=== PATIENT | female | born 1970 | race Caucasian/White ===

== ENCOUNTER → 2018-01-03 10:46 | Outpatient (CLI) | payer MEDICAID, SELFPAY ==
[2018-01-03 12:26] LABS: Creatinine, Serum 1.05 mg/dL (0.55-1.02); EST Glomerular Filtration Rate 59 mL/min (>60); Est Glom Filt Rate - Afr Amer 72 mL/min (>60)
== END ==
PROVIDERS: Family Provider Family Medicine; PCP Family Medicine; Visit Provider Specialist
DX: M25.521 Pain in right elbow (principal)
CPT/HCPCS: 36415; 82565

== ENCOUNTER 2018-02-01 12:00 | Day surgery (SDC) | payer MEDICAID, SELFPAY ==
--- NOTE | 2018-01-27 14:47 | PCM.HP.BLA ---
History and Physical DATE OF SURGERY: 02/01/2018 SCHEDULED PROCEDURE: Left shoulder manipulation under anesthesia with ultrasound guided injection HISTORY OF PRESENT ILLNESS: This is a 47-year-old female who is been having ongoing left shoulder pain since the summer 2016. Patient is left-hand dominant. Patient cannot recall any specific trauma or injury. Patient's chief complaint is limited mobility in the left dominant shoulder as well as pain. She has been through formal physical therapy as well as glenohumeral corticosteroid injection. Injection helped temporarily but the pain and limited mobility continued to progress. Patient states this is significantly affecting her normal activities of daily living as well as exercise. Patient has difficult time lifting her left shoulder in comparison to her right. Patient has a medical history pertinent for type 2 diabetes mellitus, hypertension. After failing conservative measures and discussing all options with Dr. Siegel, the patient would like to proceed with a left shoulder manipulation under anesthesia with ultrasound guided corticosteroid injection. Patient currently denies any chest pain, shortness of breath, fevers chills, or recent infections. REVIEW OF SYSTEMS: ROS: Const: Denies change in appetite, fever,or weight change. CV: Denies chest pain, heart murmur and irregular heartbeat. Resp: Reports cough, but denies pneumonia, SOB, tuberculosis and wheezing. GI: Denies constipation, diarrhea, difficulty swallowing, heartburn, nausea, bloody stools and vomiting. : Genital: reports irregular menstrual periods. Urinary: denies incontinence. Musculo: Reports leg swelling, trouble walking and weakness, but denies limp. Skin: Denies Raynaud's, history of shingles and tattoo. Neuro: Reports numbness/tingling but denies ambulatory dysfunction, dizziness and tremor. Psych: Denies anxiety, insomnia and stress. Oscar/Lymph: Denies anemia, bleeding/bruising tendency and past transfusion. Reviewed, no changes. PAST MEDICAL HISTORY: Advance Care Plan: No Advance Directives Effective Date: 10/22/2017 PMH: Medical Problems: Asthma, Depression, Diabetes, High Blood Pressure, Hypercholesterolemia Accidents: None Surgical Hx: Section - 86, , 93 Tubal Ligation - 1992 Tonsillectomy - Anesthesia Complications: None Assistive Devices: Glasses Reviewed, no changes. 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 Personal Habits: Cigarette Use: Never Smoked Cigarettes.Alcohol: Occasionally.Drug Use: Denies Use.Enjoy Exercising: Exercises 1-3 X/Week. Reviewed, no changes. VITALS: Ht: 67 Wt: 214lb Wt k.070 BMI: 33.5 BP: 144/82 Pulse: 80 Resp: 16 T: 97.6 T: 36.4C ALLERGIES: Erythromycin - Upset Stomach Diogo Inhibitor - Cough Trilipix - Itching Ivpdye Acid Cell Stripper Final MEDICATIONS: Oxycodone HCL 5 mg 1-2 tab by mouth every 6 hours, Meloxicam 15 mg 1 by mouth every day, Pravastatin Sodium 80 mg 1 by mouth every day, Metformin HCL 500 mg tid, Losartan Potassium/Hydrochlorothiazide 100-25 mg 1 by mouth every day, Glipizide ER 2.5 mg 1 daily, Tramadol HCL 50 mg 1-2 by mouth every 6 hours as needed pain, Acyclovir 400 mg 1 by mouth every day, Cetirizine HCL 10 mg 1 daily, Metoprolol 50 mg bid, Levemir 60 Units 1 daily, Humalog 15 Units bid, Vitamin D3 Super Strength 2000 Unit daily, Womens Daily Formula daily, Florence-C 500mg bid, Fish Oil [place]-3 1000 mg bid, Calcium 600 600 mg 1 by mouth DAILY PRE-OP EXAM: General appearance:NORMAL Other: Eyes: Conjunctivae and lids: NORMAL Pupils: ERR Ears, Nose, Mouth, and Throat: NORMAL Other: Inspection of lips, teeth and gums: NORMAL Other: Neck: Examination of neck: no masses noted. Respiratory: Assessment of respiratory effort: NORMAL Other: Ausculation of lungs: clear to ausculation no wheeses, ronchi or rales. Cardiovascular: Ausculation of heart: regular rate and rhythem, positive systolic mummur, no gallops or rubs. Exam of carotid arteries: NORMAL Other: Gastrointestinal: Exam of abdomen: soft, nontender, nondistended bowel sounds present. Lymphatic: Palpation of nodes in neck: NORMAL Other: Palpation of nodes in Axillae: NORMAL Other: Neurological: see below Psychiatric: Orientation to time, place and person: NORMAL Other: Mood and affect: NORMAL Other: PHYSICAL EXAMINATION: Examination of the patient's left shoulder is cool to touch without erythema. Range of motion actively is 90? forward elevation, 20? external rotation, internal rotation to beltline. Passively patient can be taken to 100? of forward elevation. Patient does have scapular dyskinesia. Good strength of the left shoulder. Sensations intact light touch. IMAGING STUDIES: 1. X-rays were obtained at [facility] on October 22, 2017 of the left shoulder which reveals well aligned left shoulder with no acute fractures noted. No significant degenerative changes of the joint. 2. MRI was obtained at [facility] on January 21, 2018 of the left shoulder which does reveal adhesive capsulitis and mild rotator cuff tendinosis without tear. IMPRESSION: 1. Left shoulder pain with adhesive capsulitis 2. Hypertension 3. Type 2 diabetes mellitus 4. Hypercholesterolemia 5. Depression 6. Asthma PLAN: Dr. Siegel did discuss and review with the patient all treatment options including surgical versus nonsurgical. Patient wishes to proceed with above-stated procedure. Potential risks, benefits, and complications of this procedure were discussed in detail including but not limited to , infection, nerve and blood vessel damage, persistent pain, numbness, tingling, paresthesias, blood clot, pulmonary embolism, and requirement for further surgery. The patient expressed full understanding has no further questions for the doctor. Patient does agree to proceed with the above-stated procedure and has signed the surgery consent form. We will begin immediate formal physical therapy daily following manipulation under anesthesia. Patient was encouraged to work on pendulum exercises and passive range of motion postoperatively. ___ I have re-examined the patient. There are no clinical changes since date of exam. ___ See progress notes for changes. ___ Dictated on admission Date: Time: Signature:
--- NOTE | 2018-01-27 14:57 | HP.PCM_ITS ---
History and Physical DATE OF SURGERY: 02/01/2018 SCHEDULED PROCEDURE: Left shoulder manipulation under anesthesia with ultrasound guided injection HISTORY OF PRESENT ILLNESS: This is a 47-year-old female who is been having ongoing left shoulder pain since the summer 2016. Patient is left-hand dominant. Patient cannot recall any specific trauma or injury. Patient's chief complaint is limited mobility in the left dominant shoulder as well as pain. She has been through formal physical therapy as well as glenohumeral corticosteroid injection. Injection helped temporarily but the pain and limited mobility continued to progress. Patient states this is significantly affecting her normal activities of daily living as well as exercise. Patient has difficult time lifting her left shoulder in comparison to her right. Patient has a medical history pertinent for type 2 diabetes mellitus, hypertension. After failing conservative measures and discussing all options with Dr. Siegel, the patient would like to proceed with a left shoulder manipulation under anesthesia with ultrasound guided corticosteroid injection. Patient currently denies any chest pain, shortness of breath, fevers chills, or recent infections. REVIEW OF SYSTEMS: ROS: Const: Denies change in appetite, fever,or weight change. CV: Denies chest pain, heart murmur and irregular heartbeat. Resp: Reports cough, but denies pneumonia, SOB, tuberculosis and wheezing. GI: Denies constipation, diarrhea, difficulty swallowing, heartburn, nausea, bloody stools and vomiting. : Genital: reports irregular menstrual periods. Urinary: denies incontinence. Musculo: Reports leg swelling, trouble walking and weakness, but denies limp. Skin: Denies Raynaud's, history of shingles and tattoo. Neuro: Reports numbness/tingling but denies ambulatory dysfunction, dizziness and tremor. Psych: Denies anxiety, insomnia and stress. Oscar/Lymph: Denies anemia, bleeding/bruising tendency and past transfusion. Reviewed, no changes. PAST MEDICAL HISTORY: Advance Care Plan: No Advance Directives Effective Date: 10/22/2017 PMH: Medical Problems: Asthma, Depression, Diabetes, High Blood Pressure, Hypercholesterolemia Accidents: None Surgical Hx: Section - 86, , 93 Tubal Ligation - 1992 Tonsillectomy - Anesthesia Complications: None Assistive Devices: Glasses Reviewed, no changes. 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 Personal Habits: Cigarette Use: Never Smoked Cigarettes.Alcohol: Occasionally.Drug Use: Denies Use.Enjoy Exercising: Exercises 1-3 X/Week. Reviewed, no changes. VITALS: Ht: 67 Wt: 214lb Wt k.070 BMI: 33.5 BP: 144/82 Pulse: 80 Resp: 16 T: 97.6 T: 36.4C ALLERGIES: Erythromycin - Upset Stomach Diogo Inhibitor - Cough Trilipix - Itching Ivpdye Acid Jointer Machine MEDICATIONS: Oxycodone HCL 5 mg 1-2 tab by mouth every 6 hours, Meloxicam 15 mg 1 by mouth every day, Pravastatin Sodium 80 mg 1 by mouth every day, Metformin HCL 500 mg tid, Losartan Potassium/Hydrochlorothiazide 100-25 mg 1 by mouth every day, Glipizide ER 2.5 mg 1 daily, Tramadol HCL 50 mg 1-2 by mouth every 6 hours as needed pain, Acyclovir 400 mg 1 by mouth every day, Cetirizine HCL 10 mg 1 daily , Metoprolol 50 mg bid, Levemir 60 Units 1 daily, Humalog 15 Units bid, Vitamin D3 Super Strength 2000 Unit daily, Womens Daily Formula daily, Florence-C 500mg bid, Fish Oil [place]-3 1000 mg bid, Calcium 600 600 mg 1 by mouth DAILY PRE-OP EXAM: General appearance:NORMAL Other: Eyes: Conjunctivae and lids: NORMAL Pupils: ERR Ears, Nose, Mouth, and Throat: NORMAL Other: Inspection of lips, teeth and gums: NORMAL Other: Neck: Examination of neck: no masses noted. Respiratory: Assessment of respiratory effort: NORMAL Other: Ausculation of lungs: clear to ausculation no wheeses, ronchi or rales. Cardiovascular: Ausculation of heart: regular rate and rhythem, positive systolic mummur, no gallops or rubs. Exam of carotid arteries: NORMAL Other: Gastrointestinal: Exam of abdomen: soft, nontender, nondistended bowel sounds present. Lymphatic: Palpation of nodes in neck: NORMAL Other: Palpation of nodes in Axillae: NORMAL Other: Neurological: see below Psychiatric: Orientation to time, place and person: NORMAL Other: Mood and affect: NORMAL Other: PHYSICAL EXAMINATION: Examination of the patient's left shoulder is cool to touch without erythema. Range of motion actively is 90? forward elevation, 20? external rotation, internal rotation to beltline. Passively patient can be taken to 100? of forward elevation. Patient does have scapular dyskinesia. Good strength of the left shoulder. Sensations intact light touch. IMAGING STUDIES: 1. X-rays were obtained at [facility] on October 22, 2017 of the left shoulder which reveals well aligned left shoulder with no acute fractures noted. No significant degenerative changes of the joint. 2. MRI was obtained at [facility] on January of the left shoulder which does reveal adhesive capsulitis and mild rotator cuff tendinosis without tear. IMPRESSION: 1. Left shoulder pain with adhesive capsulitis 2. Hypertension 3. Type 2 diabetes mellitus 4. Hypercholesterolemia 5. Depression 6. Asthma PLAN: Dr. Siegel did discuss and review with the patient all treatment options including surgical versus nonsurgical. Patient wishes to proceed with above- stated procedure. Potential risks, benefits, and complications of this procedure were discussed in detail including but not limited to , infection , nerve and blood vessel damage, persistent pain, numbness, tingling, paresthesias, blood clot, pulmonary embolism, and requirement for further surgery. The patient expressed full understanding has no further questions for the doctor. Patient does agree to proceed with the above-stated procedure and has signed the surgery consent form. We will begin immediate formal physical therapy daily following manipulation under anesthesia. Patient was encouraged to work on pendulum exercises and passive range of motion postoperatively. ___ I have re-examined the patient. There are no clinical changes since date of exam. ___ See progress notes for changes. ___ Dictated on admission Date: Time: Signature:
[2018-02-01] VITALS (7 sets, daily range): BP systolic 153–184; BP diastolic 83–97; PULSE 75–94; RESP 16–18; TEMP 36.3–36.4; O2SAT 93–99; BMI 33.2
[2018-02-01 13:20] LABS: Bedside Glucose 184 mg/dL (70-110)
[2018-02-01] MEDS: Triamcinolone Acetonide 40 MG/ML Vial (15:57)
--- NOTE | 2018-02-01 16:19 | PCM.OPRPT ---
Report of Operation Date of Procedure: 02/01/18 Pre-Operative Diagnosis: Left shoulder adhesive capsulitis Post-Operative Diagnosis: Left shoulder adhesive capsulitis Surgery/Procedure Performed:: Manipulation under anesthesia left shoulder. Ultrasound-guided injection left shoulder glenohumeral joint Description of Surgical Findings:: Good backflow from needle. Preoperative range of motion 105? forward elevation postoperative range of motion 150? forward elevation metal stamper: None Type of Anesthesia:: MAC Anesthesiologist: Mateo Sanches Special Medications: 2 mL Kenalog, 10 mL 1% lidocaine Estimated Blood Loss (mL): 0 Fluids Replaced: Crystalloid Description of Procedure: 47-year-old female who underwent physical therapy and corticosteroid injection for capsulitis of the glenohumeral joint. She failed these conservative measures and at this time we discussed manipulation under anesthesia and repeat corticosteroid injection under ultrasound guidance. Risks and benefits of procedure were discussed the patient including but not limited to fractures, repeat stiffness, infection and general risk of anesthesia including loss of life. Patient demonstrated understanding was able to sign informed consent. Procedure: On the date of the procedure patient's left upper extremity was marked in the preoperative area. Patient was taken back to the operating room where there transferred to the table in supine position. Anesthesia seemed controlled C-spine airway control throughout the remainder the procedure. After placement of LMA and appropriate sedation the left upper extremity was examined showing forward elevation to 105?. After gentle manipulation we obtain 150? forward elevation. Due to fracture risks we did not attempt significant internal rotation due to torsional risk. At this time patient was placed up into the beachchair position the posterior portal was palpated 2 cm distal and 2 cm medial to the posterior lateral edge of the acromion. Ultrasound was used to identify the joint. Appropriate area was prepped with alcohol for sterilization. needle was advanced. 10 cc of lidocaine were placed in the joint good backflow was obtained. After good backflow was obtained verifying entry into the joint as well as visualized joint fluid 2 cc of Kenalog was placed in the joint. Band-Aid was placed after needle was then removed the patient was awakened by anesthesia and transferred to the [facility]. Patient was then transferred to the PACU for recovery in stable condition. Postoperative plan: Patient will begin intensive physical therapy starting tomorrow and follow-up in 1 weeks. Grafts/Implants Used: none - Complications none - Admit VTE Documentation VTE Present on Admission: No VTE Mechan Device Prophylaxis: SCD's VTE Pharm Prophylaxis ordered?: No Reason prophylaxis not ordered:: Treatment Not Indicated
--- NOTE | 2018-02-01 16:24 | OP.PCM_ITS ---
Report of Operation Date of Procedure: 02/01/18 Pre-Operative Diagnosis: Left shoulder adhesive capsulitis Post-Operative Diagnosis: Left shoulder adhesive capsulitis Surgery/Procedure Performed:: Manipulation under anesthesia left shoulder. Ultrasound-guided injection left shoulder glenohumeral joint Description of Surgical Findings:: Good backflow from needle. Preoperative range of motion 105? forward elevation postoperative range of motion 150? forward elevation piece dyer: None Type of Anesthesia:: MAC Anesthesiologist: Mateo Sanches Special Medications: 2 mL Kenalog, 10 mL 1% lidocaine Estimated Blood Loss (mL): 0 Fluids Replaced: Crystalloid Description of Procedure: 47-year-old female who underwent physical therapy and corticosteroid injection for capsulitis of the glenohumeral joint. She failed these conservative measures and at this time we discussed manipulation under anesthesia and repeat corticosteroid injection under ultrasound guidance. Risks and benefits of procedure were discussed the patient including but not limited to fractures, repeat stiffness, infection and general risk of anesthesia including loss of life. Patient demonstrated understanding was able to sign informed consent. Procedure: On the date of the procedure patient's left upper extremity was marked in the preoperative area. Patient was taken back to the operating room where there transferred to the table in supine position. Anesthesia seemed controlled C- spine airway control throughout the remainder the procedure. After placement of LMA and appropriate sedation the left upper extremity was examined showing forward elevation to 105?. After gentle manipulation we obtain 150? forward elevation. Due to fracture risks we did not attempt significant internal rotation due to torsional risk. At this time patient was placed up into the beachchair position the posterior portal was palpated 2 cm distal and 2 cm medial to the posterior lateral edge of the acromion. Ultrasound was used to identify the joint. Appropriate area was prepped with alcohol for sterilization. needle was advanced. 10 cc of lidocaine were placed in the joint good backflow was obtained. After good backflow was obtained verifying entry into the joint as well as visualized joint fluid 2 cc of Kenalog was placed in the joint. Band-Aid was placed after needle was then removed the patient was awakened by anesthesia and transferred to the [facility]. Patient was then transferred to the PACU for recovery in stable condition. Postoperative plan: Patient will begin intensive physical therapy starting tomorrow and follow-up in 1 weeks. Grafts/Implants Used: none - Complications none - Admit VTE Documentation VTE Present on Admission: No VTE Mechan Device Prophylaxis: SCD's VTE Pharm Prophylaxis ordered?: No Reason prophylaxis not ordered:: Treatment Not Indicated
[2018-02-01 16:26] LABS: Bedside Glucose 131 mg/dL (70-110)
[2018-02-01] MEDS: Ketorolac 30 MG/ML Syringe IV (16:32)
== END 2018-02-01 17:30 | disposition home or self-care (01) ==
LOC: SDC 12:01 → ACINP 12:05
PROVIDERS: Family Provider Family Medicine; PCP Family Medicine; Visit Provider Specialist
PROC: (CPT 23700; principal; 2018-02-01 14:25)
DX: M75.02 Adhesive capsulitis of left shoulder (principal); I10 Essential (primary) hypertension; E78.00 Pure hypercholesterolemia, unspecified; E11.9 Type 2 diabetes mellitus without complications; Z79.4 Long term (current) use of insulin; Z79.84 Long term (current) use of oral hypoglycemic drugs; J45.909 Unspecified asthma, uncomplicated; F32.9 Major depressive disorder, single episode, unspecified; F17.210 Nicotine dependence, cigarettes, uncomplicated; Z79.899 Other long term (current) drug therapy
CPT/HCPCS: 20611; 23700; 82962; J3010; J7120; J2405

== ENCOUNTER → 2018-03-21 08:13 | Outpatient (CLI) | payer MEDICAID, SELFPAY ==
--- NOTE | 2018-03-21 08:15 | BI_ITS ---
MAMMOGRAPHY - BILATERAL SCREENING 3-D SUPA SYNTHESIS REASON FOR EXAM: Female, 47 years old. Bilateral Screening 3-D tomosynthesis PERTINENT HISTORY: No significant family history. TECHNIQUE: 2-D mammograms and 3-D Supa synthesis of the breast (s) were performed. CAD was performed. COMPARISON: None. FINDINGS: The breast composition is heterogeneously dense that can obscure small breast masses. Scattered benign calcifications are seen. No dense spiculated masses or suspicious microcalcifications are identified. No architectural distortion is identified. There is no skin thickening or retraction. There has been no significant change since the prior study. BI/SCREENING MAMM (CAD), BILAT IMPRESSION: No mammographic signs of malignancy. Routine yearly mammograms recommended. ASSESSMENT CATEGORY: BIRADS Category 2: Benign. A letter regarding these results will be sent to the patient by the facility within 30 days. FOLLOW UP RECOMMENDATION: Yearly follow up mammogram recommended. (A) Approximately 10% of breast cancers are not detected by mammography. A normal mammogram should not delay biopsy of a clinically suspicious abnormality. Electronically Signed: Mt Burton MD at 11:10 EDT , Service support ,
== END ==
PROVIDERS: Family Provider Family Medicine; PCP Family Medicine; Visit Provider Family Medicine
DX: Z12.31 Encounter for screening mammogram for malignant neoplasm of breast (principal)
CPT/HCPCS: 77063; 77067

== ENCOUNTER → 2018-03-23 10:50 | Outpatient (CLI) | payer MEDICAID, SELFPAY ==
[2018-03-23 12:32] LABS: Hemoglobin A1c 7.9 % (4.2-6.3)
[2018-03-23 12:49] LABS: ALB/GLOB Ratio 1.2 RATIO (0.9-2.4); AST(SGOT) 17 U/L (15-37); Alanine Aminotransfer ALT/SGPT 27 U/L (13-56); Albumin, Serum 3.8 g/dL (3.2-5.0); Alkaline Phosphatase 82 U/L (45-117); Anion Gap 8 (5-15); BUN 25 mg/dL (7-18); BUN/Creat Ratio 24.3 RATIO (10-20); Calcium,Total 9.7 mg/dL (8.5-10.1); Chloride 105 mmol/L (98-107); Creatinine, Serum 1.03 mg/dL (0.55-1.02); EST Glomerular Filtration Rate 61 mL/min (>60); Est Glom Filt Rate - Afr Amer 73 mL/min (>60); Globulin 3.2 g/dL (2.2-4.2); Glucose 105 mg/dL (74-106); Potassium 4.1 mmol/L (3.5-5.1); Sodium Level 143 mmol/L (136-145)
== END ==
PROVIDERS: Family Provider Family Medicine; PCP Family Medicine; Visit Provider Family Medicine
DX: E11.9 Type 2 diabetes mellitus without complications (principal)
CPT/HCPCS: 36415; 80053; 83036

== ENCOUNTER → 2018-07-07 11:50 | Outpatient (CLI) | payer MEDICAID, SELFPAY ==
[2018-07-07 13:19] LABS: AST(SGOT) 17 U/L (15-37); Alanine Aminotransfer ALT/SGPT 26 U/L (13-56); Albumin, Serum 3.5 g/dL (3.2-5.0); Alkaline Phosphatase 83 U/L (45-117); Anion Gap 7 (5-15); BUN 16 mg/dL (7-18); BUN/Creat Ratio 14.8 RATIO (10-20); Chloride 104 mmol/L (98-107); Creatinine, Serum 1.08 mg/dL (0.55-1.02); EST Glomerular Filtration Rate 57 mL/min (>60); Est Glom Filt Rate - Afr Amer 69 mL/min (>60); Globulin 3.4 g/dL (2.2-4.2); Glucose 220 mg/dL (74-106); Hemoglobin A1c 6.9 % (4.2-6.3); Potassium 3.9 mmol/L (3.5-5.1); Protein, Total 6.9 g/dL (6.4-8.2); Sodium Level 139 mmol/L (136-145)
== END ==
PROVIDERS: Family Provider Family Medicine; PCP Family Medicine; Visit Provider Family Medicine
DX: E11.9 Type 2 diabetes mellitus without complications (principal); I10 Essential (primary) hypertension
CPT/HCPCS: 36415; 80053; 83036

== ENCOUNTER 2018-09-13 08:00 | Outpatient (RCR) | payer MEDICAID, SELFPAY ==
--- NOTE | 2018-08-16 08:19 | HP.PTEVAL_ITS ---
Patient's Visit Information YOCASTA CONTRERAS is a 48 year old F referred to Physical Therapy by DINA Rushing with a diagnosis of R lateral epicondylitis. Date of Evaluation: 08/16/18 Physical Therapist: John Alberts - Visit Plan Frequency: 2x /Week Duration: 6 Weeks Plan: Start with eccentric laoding, deep friction to extensor group, US to extensor group and extensor group stretching. Instruct patient on body mechanics and ergonomics. - Subjective Subjective: Pt reports to physical therapy with R lateral epicondylitis. pt has attempted to manage lateral elbow pain for ~3 years. pt has recieved injections which initailly provided relief but the efficacy of the injections has decreased over the years and the frequency of injections has increased. pt reports that pain is greatest at the end of the day and can radiate either up the arm starting at the elbow or down the arm and into hands. pain at night consistently wakes patient up while sleeping. pt reports being pain free in the morning but pain can increases to as high as 9/10 at the end of the day. pt reports 0/10 at this time. pt reports difficulty with daily activities associated with wrist extension (talking on the phone, working on the computer, using push mower, crocheting). pt also reports numbness in the right UE which is localized mostly to the tips of the fingers but can extend through the entire hand. pt reports occacional numbness in left hand as well. pt has history of diabetes. pt has recently rejoined the gym where they attened 1-2 times a week with little to no adverse reactions. pt enjoys crocheting and reports needed to complete several before alisha. pt hopes to be able to continue crocheting and other daily activities without pain. - Pain Right Elbow Pain Intensity (Out of 10): 0 Pain Intensity Range: 0, 9 - Objective PALPATION: Pt. has increased tenderness througout R lateral extensor group and lateral epicondyle. No medial epicondyle pain. POSTURE: forward head and rounded shoulders, mild guarding of right arm. attemps to keep right arm in a relaxed postion. NEURO: equal bilateral sensation UE. ROM: R UE: WFL; Cervical: WFL- no increase insymptoms. no pain with UE motion; no incerase in pain or numbness with cervical motion. MMT: R UE: elbow- 5/5; wrist- 5/5; fingers- 5/5. elbow pain with resisted wrist extension, operation specialist strength- R 38#. L operation specialist 54#. SPECIAL TESTING: + finklestien, + cozen's, + hawkins. - Goals Goal 1:: Pt reports a 2-3/10 pain level at the end of the day. Goal Time Frame: 4-6 Weeks Goal 2:: Pt reports 0/10 with daily activity (working on computer, mowing, talking on phone, crocheting) Goal Time Frame: 4-6 Weeks Goal 3:: Pt. to sleep throughout the night without increase in symptoms allowing for increased quality of life. Goal Time Frame: 4-6 Weeks Goal 4:: Pt. to have increased operation specialist strength of R hand to 40#+ without increase in symptoms. - Rehabilitation Potential Physical Therapy Diagnosis: pt presents with symtpons associated with R lateral epicondylitis. symptoms include pain originating from the right lateral epicondyle. pain increases with activity, especially wrist extension activities. pt would benefit from physical therapy to promot a decrease in pain and abilty to return to normal daily activities. Rehabilitation Potential: Good - Anticipated Interventions Patient/Client Instruction: Educate patient on: Condition, Plan of Care, Risk Factors, Benefits of Fitness Program For the Purpose of:: To decrease pain, To improve muscle performance and motor function, To improve ability to perform ADL's, To increase tolerance to act ivity/condition/position, To improve performance and independence with ADL's, To improve ability of physical actions for home/community/work/leisure, To improve decision making, To facilitate caregiver knowledge, To improve self management, To prevent re-injury, To improve ability to perform tasks related to life management, To improve tolerance to ADL's Therapeutic Exercise to Include: Strength training, Endurance training, Postural training, Flexibilty training For the Purpose of:: To decrease pain, To improve muscle performance and motor function, To improve ability to perform ADL's, To increase tolerance to activity/condition/position, To improve ability of physical actions for home/community/work/leisure, To improve health of tissue, To decrease soft tissue restriction Manual Therapy Techniques to Include: Massage, Mobilization, Functional dry needling, Soft tissue mobilization For the Purpose of:: To decrease pain, To improve muscle performance and motor function, To improve ability to perform ADL's, To increase tolerance to activity/condition/position, To improve performance and independence with ADL's, To improve ability of physical actions for home/community/work/leisure Cryotherapy (ice pack, ice massage): Yes Thermo therapy (hot pack): Yes Ultrasound (thermal/non thermal): Yes For the Purpose of:: To decrease pain, To decrease swelling/inflammation, To improve muscle performance and motor function, To improve ability to perform ADL's, To increase tolerance to activity/condition/position, To improve ability of physical actions for home/community/work/leisure Thank you for the opportunity to evaluate your patient. For Medicare and Medicare HMO plans, please review the plan of care and approve it. It will need to be FAXED BACK to us at [phone] for Medicare purposes. Please let me know if there are questions or concerns regarding this plan of care. Physician Signature: Date:
--- NOTE | 2018-09-13 09:12 | HP.PTDCSUM ---
HP - PT D/C Summary It has been my pleasure to treat YOCASTA CONTRERAS under orders from DINA Rushing, for the diagnosis of R lateral epicondylitis for a total of 8 visit(s). Discharge Date: 09/13/18 Please see the following information for a summary of their discharge status. - Subjective Subjective: Pt. reports I have been doing pretty good over the past few days, it doesn't really hurt. Pt. reports being HEP compliant. Pt. reports being - Pain Right Elbow Pain Intensity (Out of 10): 0 - Overall Improvement % Improvement: 60 - Objective Objective/Function: Pt. had full strength without increase in symptoms. Pt. reports not having pain over the last 4 days or so, but really has not done the activities that usually bother her. Pt. has minimal pain with palpation this date. No N/T. Pt. reprots being able to complete hobbies without issues. pt. is scheduled to have a nerve conduction test in Oct. Pt. is independent with her current HEP. Pt. reports being pleased. Pt. has no pain currently. - Goals Goal 1:: Pt reports a 2-3/10 pain level at the end of the day. Goal Progress: Goal Met Goal 2:: Pt reports 0/10 with daily activity (working on computer, mowing, talking on phone, crocheting) Goal Progress: Progressing Goal 3:: Pt. to sleep throughout the night without increase in symptoms allowing for increased quality of life. Goal Progress: Goal Met Goal 4:: Pt. 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 Goal Progress: Goal Met - Plan Plan: Pt. to be DC to HEP at this point in time. Pt. to have nerve conduction test to determine source of symptoms and rule out carpal tunnel. Pt. had positive results with eccentric and deep friction activies. - D/C Information Discharge Comments: Pt. progressed well with PT. PT. focused on stretching, eccentric exercises, US and deep friction. We added graston techniques as well. Pt. had good progress, but did have some symptoms with heavier activities. Pt. did report no pain over the last few days. Pt. will be DC to HEP at this point in time. She is to continue with HEP, but if symptoms still occur further imaging and assesment would be warranted. If there are questions or concerns regarding this patient's physical therapy, please feel free to call me at [phone]. Thank you for the referral of this patient. Sincerely, John Alberts
== END 2018-09-13 10:27 | disposition home or self-care (01) ==
LOC: PT 08:00
PROVIDERS: Family Provider Family Medicine; PCP Family Medicine; Visit Provider Physician Assistant
DX: M77.11 Lateral epicondylitis, right elbow (principal)
CPT/HCPCS: 97035; 97110; 97140; 97162

== ENCOUNTER → 2018-09-27 09:30 | Outpatient (CLI) | payer MEDICAID, SELFPAY ==
[2018-09-27 12:46] LABS: Hemoglobin A1c 6.9 % (4.2-6.3)
== END ==
PROVIDERS: Family Provider Family Medicine; PCP Family Medicine; Referring Provider Family Medicine; Visit Provider Family Medicine
DX: E11.9 Type 2 diabetes mellitus without complications (principal)
CPT/HCPCS: 36415; 83036

== ENCOUNTER → 2019-09-04 11:05 | Outpatient (CLI) | payer MEDICAID, SELFPAY ==
[2019-09-04 11:01] VITALS: BMI 26.7
--- NOTE | 2019-09-04 11:07 | RAD_ITS ---
STUDY: X-RAY - CERVICAL SPINE REASON FOR EXAM: Female, 49 years old. Right arm pain TECHNIQUE: 5 view(s) of the cervical spine were obtained. COMPARISON: None FINDINGS: Normal anterior atlantoaxial articulation. Normal odontoid process. Normal cervical lordosis. Normal vertebral bodies and endplates. Normal disc space heights. Normal visualized intervertebral neuroforamina. Carotid calcifications. RAD/Cerv Spine 4 or 5 Views IMPRESSION: No significant osseous abnormality is evident. Electronically Signed: José Cortes MD at 17:09 EDT Tel , Service support ,
== END ==
PROVIDERS: Family Provider Family Medicine; PCP Family Medicine; Referring Provider Physician Assistant; Visit Provider Physician Assistant
DX: M79.601 Pain in right arm (principal)
CPT/HCPCS: 72050

== ENCOUNTER → 2019-09-15 15:45 | Outpatient (CLI) | payer MEDICAID, SELFPAY ==
[2019-09-15 14:07] VITALS: BMI 26.4
[2019-09-15 16:16] LABS: Mucous, Urine 0 SEEN /hpf (<or=2+); Squamous Epithelial Cells - UA 0 SEEN /hpf (5-10)
[2019-09-15 16:27] LABS: Color, Urine Straw (Yellow); Glucose, Dipstick Normal (Normal); Ketone-Dipstick Negative (Negative); Leukocyte Esterase-Dipstick 25 /ul (Negative); Nitrite-Dipstick Negative (Negative); Occult Blood-Urine 150 /ul (Negative); Protein-Dipstick Negative (Negative); Urine Bilirubin Dipstick Negative (Negative); Urine Clarity Sl. Cloudy (Clear); Urine Urobilinogen Normal (Normal); Urine pH 6.5 (5.0 - 8.0)
[2019-09-15 16:34] LABS: Bacteria RARE /hpf (None Seen); Red Blood Cells-Urine 0-5 SEEN /hpf (0-5); White Blood Cells 0-5 SEEN /hpf (0-5)
== END ==
PROVIDERS: Family Provider Family Medicine; PCP Family Medicine; Referring Provider Internal Medicine; Visit Provider Internal Medicine
DX: R31.9 Hematuria, unspecified (principal)
CPT/HCPCS: 81001; 87077; 87086; 87088; 87186

== ENCOUNTER → 2019-09-22 11:34 | Outpatient (CLI) | payer MEDICAID, SELFPAY ==
[2019-09-15 14:07] VITALS: BMI 26.4
[2019-09-22 11:37] LABS: Red Blood Cells-Urine 0 SEEN /hpf (0-5)
[2019-09-22 12:41] LABS: Color, Urine Yellow (Yellow); Glucose, Dipstick Normal (Normal); Ketone-Dipstick 5 mg/dl (Negative); Leukocyte Esterase-Dipstick 25 /ul (Negative); Nitrite-Dipstick Negative (Negative); Occult Blood-Urine Negative /ul (Negative); Protein-Dipstick 30 mg/dl (Negative); Specific Gravity, Urine 1.015 (1.002-1.030); Urine Bilirubin Dipstick Negative (Negative); Urine Clarity Sl. Cloudy (Clear); Urine Urobilinogen 1 mg/dl (Normal)
[2019-09-22 12:52] LABS: Bacteria 2+ /hpf (None Seen); Mucous, Urine 2+ /hpf (<or=2+); Squamous Epithelial Cells - UA 0-5 SEEN /hpf (5-10); White Blood Cells 0-5 SEEN /hpf (0-5)
== END ==
PROVIDERS: Family Provider Family Medicine; PCP Family Medicine; Visit Provider Internal Medicine
DX: R31.9 Hematuria, unspecified (principal)
CPT/HCPCS: 81001

== ENCOUNTER 2019-10-18 12:33 | Day surgery (SDC) | payer MEDICAID, SELFPAY ==
[2019-10-05 08:52] VITALS: BMI 26.4
--- NOTE | 2019-10-05 13:57 | HP_ITS ---
I have re-examined the patient. There are no clinical changes since date of exam. Intake Vital Signs 10/05/19 Body Mass Index (BMI) 26.4 Intake Visit Reasons: right arm Chief Complaint: UTI or Kidney stone Allergies choline fenofibrate [From Trilipix] Allergy (Severe, Verified 09/15/19 14:04) Itching Gfxgjwg-Qxy-Ulo Reductase Inhibitor Allergy (Unknown, Verified 09/15/19 14:04) Itching fenofibrate Allergy (Verified 09/15/19 14:04) Itching Iodinated Contrast Media [Iodinated Contrast- Oral and IV Dye] Allergy (Verified 09/15/19 14:04) Itching omeprazole [From Prilosec] Allergy (Verified 09/15/19 14:04) Itching ranitidine Allergy (Verified 09/15/19 14:04) Itching ULISES Inhibitors Adverse Reaction (Verified 09/15/19 14:04) Other erythromycin base Adverse Reaction (Verified 09/15/19 14:04) Upset Stomach Medications Ascorbic Acid [Vitamin C] 500 mg PO DAILY 01/28/18 [History Confirmed 10/05/19] Calcium Carbonate [Calcium] 600 mg PO DAILY 01/28/18 [History Confirmed 10/05/19] Cholecalciferol (Vitamin D3) [Vitamin D3] 2,000 unit PO DAILY 01/28/18 [History Confirmed 10/05/19] Multivit with Calcium,Iron,Min [Multiple Vitamins For Women] 1 ea PO DAILY 01/28/18 [History Confirmed 10/05/19] [place]-3 Fatty Acids/Fish Oil [Fish Oil 1,000 mg Capsule] 1 ea PO BID 01/28/18 [History Confirmed 10/05/19] pen needle, diabetic 32 gauge x 1/4 See Dose Instructions .ROUTE .MEDSUPPLY #50 ea 03/23/18 [Rx Confirmed 10/05/19] vitamin B complex tablet 1 tab PO QDAY 03/23/18 [History Confirmed 10/05/19] fluconazole 100 mg tablet 100 mg PO DAILY PRN tab 02/02/19 [History Confirmed 10/05/19] budesonide-formoterol HFA 160 mcg-4.5 mcg/actuation aerosol inhaler 2 puff INHALATION Q12H #30.6 g 04/21/19 [Rx Confirmed 10/05/19] albuterol sulfate HFA 90 mcg/actuation aerosol inhaler 1 - 2 puff INHALATION Q6H PRN #8.5 g 05/18/19 [Rx Confirmed 10/05/19] pravastatin 80 mg tablet See Rx Instructions .ROUTE .COMPLEX #30 tablet 06/05/19 [Rx Confirmed 10/05/19] metformin ER 500 mg 24 hr tablet,extended release See Rx Instructions PO .COMPLEX tab 06/07/19 [History Confirmed 10/05/19] cetirizine 10 mg capsule 10 mg PO DAILY #90 cap 07/25/19 [Rx Confirmed 10/05/19] atenolol 50 mg tablet See Rx Instructions .ROUTE .COMPLEX #180 tablet 08/02/19 [Rx Confirmed 10/05/19] flash glucose sensor kit See Rx Instructions .ROUTE .MEDSUPPLY #2 ea 08/02/19 [Rx Confirmed 10/05/19] acyclovir 400 mg tablet 400 mg PO BID #60 tab 08/28/19 [Rx Confirmed 10/05/19] meloxicam 15 mg tablet See Rx Instructions .ROUTE .COMPLEX #90 tablet 08/28/19 [Rx Confirmed 10/05/19] ciprofloxacin 500 mg tablet 500 mg PO BID #10 tab 09/15/19 [Rx Confirmed 10/05/19] dulaglutide 1.5 mg/0.5 mL subcutaneous pen injector 1.5 mg SC QWEEK 09/15/19 [History Confirmed 10/05/19] amlodipine 5 mg tablet 5 mg PO DAILY #90 tab 09/19/19 [Rx Confirmed 10/05/19] valsartan 160 mg-hydrochlorothiazide 12.5 mg tablet 1 tab PO DAILY #90 tab 09/19/19 [Rx Confirmed 10/05/19] [facility] Medical History (Updated 08/02/19 @ 11:48 by Fortunato Avery DO) Skin cancer (Chronic) Asthma (Chronic) High cholesterol (Chronic) Hypertension (Chronic) Diabetes (Chronic) Limb weakness (Acute) Shoulder pain (Acute) neck/back pain (Acute) Surgical History (Updated 03/23/18 @ 09:56 by Alba Gooden) History of section (Acute) History of shoulder surgery (Acute) History of tonsillectomy (Acute) History of tubal ligation (Acute) Family History (Updated 03/23/18 @ 09:57 by Alba Gooden) Mother Hypertension Diabetes Father Hypertension Diabetes COPD (chronic obstructive pulmonary disease) Brother Hypertension Brother Hypertension Social History (Updated 10/05/19 @ 09:31 by Setffi Bellamy DO) Smoking Status: Current every day smoker alcohol intake: current alcohol intake frequency: holidays/special occasions only substance use type: does not use what type of physical activity do you participate in: other details: [employer] frequency: 1-2 times per week HPI right arm: Surgical H&P: Yes Details: Parts of this documentation were recorded by a scribe, this documentation accurately reflects the service provided and the decisions made by me, Steffi Bellamy DO 10/05/19 0837. YOCASTA CONTRERAS is a 49 year old F here today for right arm pain, numbness and tingling. Patient had a right carpal tunnel injection last month which she states has been effective. Patient has had an MRI of her right elbow showing tendinopathy at lateral elbow c/w lateral epicondylitis- Dr. Prakash office in [place]. Continuies to have pain from her mid upper arm into her right mid forearm. Has had tennis elbow injections which were initially effective, but are not as effective now. ROS Const Reports weakness ENT Denies neck pain Musc Denies neck pain Skin/Breast Denies lesions, Denies itching, Denies rash, Denies skin swelling Neuro Yes weakness Ortho Exam Right Elbow ROM: Yes Flexion 0-140, Extension 0, Supination 0-90 and Pronation 0-80 Test: Yes TTP Medial Epicondyle, Yes Pain w/ resist wrist ext Sensation: Radial: I, Ulnar: I, Median: I No rales rhonchi wheezing, no abdominal pain, no audible bruits Assessment & Plan Problems 1. Right carpal tunnel syndrome G56.01 2. Medial epicondylitis, right elbow M77.01 Plan Reviewed previous treatments and explained that with failed injections the next step is surgery for debridement and possible anchor. Reviewed post op restrictions with splinting and lifting. Can do the ctr at the same time Reviewed the pre-operative plans with the patient. Risks and benefits of the procedure were fully explained, including but not limited to infection, neurovascular injury, continued pain, arthritis, stiffness, need for further surgery, re-injury, DVT, PE, general risks of anesthesia, and loss of limb or life. The patient understands all the risks and does wish to proceed with written consent. Follow up on as needed basis or sooner if pain, swelling, numbness or associated symptoms, or concerns develop. All questions answered. Patient in agreement of plan. Coding Level of Care Code Off vis,est,level 4 Diagnoses Right carpal tunnel syndrome G56.01 Medial epicondylitis, right elbow M77.01 10/05/19 0931 <Electronically signed by Steffi adamson DO> Date _ Steffi Bellamy DO
[2019-10-18] VITALS (8 sets, daily range): BP systolic 138–214; BP diastolic 78–111; PULSE 80–95; RESP 14–16; TEMP 36.4–37.1; O2SAT 93–97; BMI 26.1
[2019-10-18] MEDS: Lactated Ringers 1,000 ML 100 ML IV (13:05)
[2019-10-18] MEDS: Cefazolin 2 GM in 0.9% Normal Saline 100 ML IV (13:50)
[2019-10-18] MEDS: Mupirocin Ointment 22gm Tube 1 APPLIC (15:30)
--- NOTE | 2019-10-18 15:33 | DCINST_ITS ---
Discharge Diet: No Restrictions - nwb right arm, follow up in 2 weeks in office Discharge Activity: May Not Drive May shower in (days): 1 Ice area for (Minutes): 20 - Every hour while awake. Weight Bearing Status: Weight bearing as tolerated Keep extremity elevated above heart level: Operative Extremity Call your doctor if your incision/area has: Continuous Slow Oozing, Sudden Increased Bleeding, Increased Pain/ Swelling, Increased Redness, Foul Smelling Discharge Call your doctor if you observe: Fever of 101 or Higher, Coldness, Increased Pain, Numbness or Tingling, Change in Color, Calf discomfort Allergies/Adverse Reactions: Allergies choline fenofibrate [From Trilipix] Allergy (Severe, Verified 10/18/19 12:51) Itching Xzonzpz-Ksn-Ovu Reductase Inhibitor Allergy (Unknown, Verified 10/18/19 12:51) Itching fenofibrate Allergy (Verified 10/18/19 12:51) Itching Iodinated Contrast Media [Iodinated Contrast- Oral and IV Dye] Allergy (Verified 10/18/19 12:51) Itching omeprazole [From Prilosec] Allergy (Verified 10/18/19 12:51) Itching ranitidine Allergy (Verified 10/18/19 12:51) Itching ULISES Inhibitors Adverse Reaction (Verified 10/18/19 12:51) Other erythromycin base Adverse Reaction (Verified 10/18/19 12:51) Upset Stomach Medications to take at Discharge Ascorbic Acid [Vitamin C] 500 mg PO DAILY 01/28/18 Cholecalciferol (Vitamin D3) [Vitamin D3] 2,000 unit PO DAILY 01/28/18 Multivit with Calcium,Iron,Min [Multiple Vitamins For Women] 1 ea PO DAILY 01/28/18 [place]-3 Fatty Acids/Fish Oil [Fish Oil 1,000 mg Capsule] 1 ea PO DAILY 01/28/18 vitamin B complex tablet 1 tab PO QDAY 03/23/18 albuterol sulfate HFA 90 mcg/actuation aerosol inhaler 1 - 2 puff INHALATION Q6H PRN #8.5 g 05/18/19 metformin ER 500 mg 24 hr tablet,extended release 1,000 mg PO BID tab 06/07/19 cetirizine 10 mg capsule 10 mg PO DAILY #90 cap 07/25/19 acyclovir 400 mg tablet 400 mg PO BID #60 tab 08/28/19 dulaglutide 1.5 mg/0.5 mL subcutaneous pen injector 1.5 mg SC QWEEK 09/15/19 Amlodipine/Valsartan/Hcthiazid [Uikkz-Lmold-Irvj 5-160-12.5 mg] 1 ea PO DAILY 10/13/19 Atenolol [Tenormin (beta ember)] 50 mg PO BID 10/13/19 Budesonide/Formoterol Fumarate [Symbicort 160-4.5 Mcg Inhaler] 2 puff INHALATION BID 10/13/19 Ertugliflozin Pidolate [Steglatro] 5 mg PO DAILY 10/13/19 Meloxicam 15 mg PO DAILY 10/13/19 Pravastatin Sodium 80 mg PO DAILY 10/13/19 Primary Care Physician: Fortunato Avery DO [Primary Care Provider] - Test Results: Test results from this visit will be discussed in further detail at your follow- up appointment, if applicable. Please Follow Up With: Steffi Bellamy DO - [phone]
--- NOTE | 2019-10-18 15:41 | OP.PCM_ITS ---
Report of Operation Date of Procedure: 10/18/19 Pre-Operative Diagnosis: right lateral epicondylitis, carpal tunnel syndrome Post-Operative Diagnosis: same Surgery/Procedure Performed:: right lateral epicondyle debridement/ecrb debridement and tendon repair, carpal tunnel release utility locate technician: Johnny Pitts Type of Anesthesia:: General Anesthesiologist: Juancarlos Quach Specimen's removed: ecrb tendon Fluids Replaced: see chart Description of Procedure: Preop note Patient is a 49-year-old female with continued right elbow and hand pain. Patient failed conservative treatment options MRI of elbow shows extensive lateral epicondylitis nerve conduction studies shows carpal tunnel symptoms syndrome. Risk benefits and alternatives surgery discussed with patient. Risks including but not limited to blood loss, blood clot, infection, neurovascular, failure procedure, loss of life and loss of limb. Patient is aware would like to proceed with a right lateral epicondyle debridement tendon repair and carpal tunnel release. Operative note Patient seen and examined preoperative holding area. Right arm was marked. Patient brought to the operating room placed supine on the operating table. Sign, anesthesia, antibiotics were administered. The right arm was prepped and draped in usual sterile fashion with a tourniquet on her upper arm. Timeout was performed. We marked out our incisions for our lateral epicondylitis as well as her carpal tunnel release. The right arm was then elevated segmented tourniquet was raised to pressure of 250 torr. We then used a 15 blade to create our about 2 cm incision over the lateral epicondyle. We dissected down carefully down to level of the ECRL and ECU. We dissected between the 2 planes with a 15 blade and noticed the ECRB underneath. It was quite pelayo in color this was the entire degree tendon was removed and sent to pathology for further evaluation. Because there is such a large. Area of tendon that was debrided and removed we decided to repair the tendon back to bone with a all suture Arthrex knotless repair. In standard technique we repaired the extensor tendon please note the prior to this we did use a 0.54 K wire to get bleeding bed to the lateral epicondyle. We then oversewed the area of the tendon that was debrided back down to bone. We ir rigated again with copious muscle sterile saline. We closed the skin with subcuticular 3-0 Vicryl and running 4 Monocryl. We then moved to the carpal tunnel release. Please note that prior to the case all bony prominences well- padded SCDs placed on bilateral lower extremities. We marked out our incisions for our carpal tunnel release at the intersection of Tom's line in the fourth ray flexed. We extended about a centimeter and a half. Timeout was performed. We then checked ensure that the Arnot block was working with pickups which it was not so we performed a local block of 10cc 1% lidocaine. We then used a 15 blade to make a skin incision. We then dissected down tenotomy syllable of the transverse carpal ligament. We then used a new 15 blade cut through the transverse carpal ligament down to the level of the median nerve. We then further released the median nerve the combination of the 15 blade and tenotomies. The nerve was grayish in color and adherent to the transverse carpal ligament volarly. We released the transverse carpal ligament distally to the fat pad and then proximally under standard technique. We then palpated to ensure that we released all of the transverse carpal ligament which we did. We irrigated the incision with copious amounts of sterile saline. All bleeders were coagulated. The incision was closed with interrupted 4-0 nylon stitches. Tourniquet was deflated for total working time of 10 minutes. Patient tolerated procedure well there were no complications. Patient transferred to recovery room in stable condition. Postoperative note Hospital pharmacy has prescription Leave dressing clean dry and intact Follow-up in 2 weeks Call with concerns This note was generated with [employer] dictation software. It may contain incorrect words, spelling, and punctuation that were not noted in checking the note before signing
--- NOTE | 2019-10-20 | TESH_PTH ---
PATIENT: YOCASTA CONTRERAS LOC: [facility] U#:[id number] AGE/SX: 49/F ROOM: RE10/18/[address]: Dr. Steffi Bellamy DO : 1970 BED: DIS: 10/18/2019 SPEC #: [id number] RECD: 10/20/19 13:01 STATUS: KESHIA SOWMYA #: [id number] RABIA: 10/20/19 00:[address]: Steffi Bellamy DEPT: SURGICAL PATHOLOGY RECD BY: Kin Knott ENTERED: 10/20/19 13:01 SP TYPE: TENDON OTHR DR: Dr. Fortunato Avery, DO Tissues: Tendon and tendon sheath, NOS Procedures: Surgery Specimen Level III HEADER OPERATION: Lateral epicondyle debridement/ECRB, possible tendon repair PRE-OP DIAGNOSIS: Right carpal tunnel syndrome G56.01; medial epicondylitis right elbow M77.01 TISSUE SUBMITTED: Extensor tendon right elbow MICROSCOPIC DIAGNOSIS Extensor tendon, right elbow, biopsy: Focal degenerative change. AM:linette 10/23/19 MICROSCOPIC DESCRIPTION Slides are reviewed. GROSS DESCRIPTION Received in fixative is one container labeled with the patient's name and designated extensor tendon right elbow. The specimen consists of multiple pieces of seay-white soft tissue that in aggregate measure 1.5 x 1 x 0.3 cm. The specimen is totally submitted in one cassette. / ANTONINO:linette 10/20/19 TC:5 CPT: 45281
== END 2019-10-18 17:45 | disposition home or self-care (01) ==
LOC: SDC 12:34 → AC 12:35
PROVIDERS: Family Provider Family Medicine; PCP Family Medicine; Referring Provider Orthopaedic Surgery; Visit Provider Orthopaedic Surgery
PROC: (CPT 24357; principal; 2019-10-18 14:00)
DX: M77.11 Lateral epicondylitis, right elbow (principal); G56.01 Carpal tunnel syndrome, right upper limb; I10 Essential (primary) hypertension; E11.9 Type 2 diabetes mellitus without complications; E78.00 Pure hypercholesterolemia, unspecified; J45.909 Unspecified asthma, uncomplicated; F17.200 Nicotine dependence, unspecified, uncomplicated; Z79.84 Long term (current) use of oral hypoglycemic drugs; Z79.899 Other long term (current) drug therapy
CPT/HCPCS: 24359; 64721; 88304; J7120; J2405

== ENCOUNTER 2020-01-08 15:00 | Outpatient (RCR) | payer MEDICAID, SELFPAY ==
[2019-11-28 09:02] VITALS: BMI 26.1
--- NOTE | 2019-12-06 08:03 | HP.OTEVAL_ITS ---
Patient's Visit Information ANJALI CONTRERAS is a 49 year old F, referred to Occupational Therapy by Steffi Bellamy DO, with a diagnosis of right lateral epicondyitis/ right CTS. Date of Evaluation: 12/05/19 Occupational Therapist: Anjali Cortes, OTNoe/Radha, CHT - Subjective Subjective: This 49 year old female was seen for OT eval with Dx of right lateral epi, CTS with s/p lateral epi sx with extensor tendo repair and right CTR. Sx was Oct 18. pt is 6 weeks 6 days s/p. pt states she is having pain and her right shoulder limited ROM. Pt states she struggled with right Lat.. eqp issues on and off for about 5 years. She states she has pain with daily use. pt states she is using her arm as much as she can at this time. 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 Household: Vacuum - Pain right UE 4 Pain Intensity Range: 1, 6 - ROM Shoulder: right 100 left 160 Elbow: right/ Left WNL Forearm: right/ WNL - Strength Shoulder: right 3/5 left 4+/5 Elbow: right 4-/5 left 5/5 Java Systems Analyst: right 10# left 60# Lateral Pinch: right 3# left 10# Tripod Pinch: right 6# left 10# - Quick DASH-Disab of Arm,Shoulder& Hand Quick DASH Score: 72.7250 - Goals Goal:100% adherence to protocol: Yes Comment: Lateral epicondylectomy with extensor tendo repair Goal:Daily scar massage when approriate: Yes Goal:ROM equal to unaffected hand: Yes Goal:Java Systems Analyst/Pinch strength at least 75% of unaffected hand: Yes Goal:No pain with affected hand use: Yes Goal:Full use of affected hand in daily activities including: Yes Goal:Decrease scar hypersensitivity: Yes - Rehabilitation General Assessment: pt 6weeks 6 days s/p right lateral epicondylectomy, CTR. pt demo with limited right shoulder ROM and painful incision around CTR- pts pain and limited ROM limit pts ind with ADLs and IADLS at this time. pt would benefit from skilled OT services 2x week for 4 weeks- Today therapist ed. pt on AAROM of shoulder, scar mtg and desensitization- once shoulder gains ROM therapy will initiate PRE to pts leroy. pt was given handout on ex and demo understanding and agrees with POC. Rehabilitation Potential: Good - Anticipated Interventions Anticipated Interventions: A/AAROM/PROM, Strengthening, Scar Care, Desensitization, Modalities, Ergonomic Education - Visit Plan Frequency: 2x /Week Duration: 4 Weeks TEXT: Thank you for the opportunity to evaluate your patient. For Medicare and Medicare HMO plans, please review the plan of care and approve it. It will need to be FAXED BACK to us at [phone] for Medicare purposes. Please let me know if there are questions or concerns regarding this plan of care. Physician Signature: Date:
--- NOTE | 2020-01-08 15:22 | HP.OTDCSUM_ITS ---
HP - OT D/C Summary It has been my pleasure to treat ANJALI CONTRERAS under orders from Dr. Steffi Bellamy DO, for the diagnosis of right lateral epicondyitis/ right CTS for a total of 10 visit(s). Please see the following information for a summary of their discharge status. - Overall Improvement % Improvement: 90 - Objective Objective/Function: right shoulder flex 110* pt continues to demo with compensation limited shoulder ROM but reports she is performing her shoulder pully ex, AAROM of shoulder flex and abduction. elbow ROM -5/145. 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 right tripod pinch 10#. right lateral pinch 10#. Pt has made good gains with her elbow ROM and functional strength but continues to be limited with right shoulder ROM and right shoulder pain. - Goals Patient Goals: Regain Mobility, Decrease Pain, Use Hand/Wrist/Arm Normally Again Goal:100% adherence to protocol: Yes Goal:Daily scar massage when approriate: Yes Goal:ROM equal to unaffected hand: Yes Goal:Coiled Tubing Supervisor/Pinch strength at least 75% of unaffected hand: Yes Goal:No pain with affected hand use: Yes Goal:Full use of affected hand in daily activities including: Yes Goal:Decrease scar hypersensitivity: Yes - Plan Plan: D/C - D/C Information Discharge Comments: pt was seen for 10 therapy session to improve her ROM increase her strength and decrease her pain. Pt made good gains with ROM and strength of smocking machine operator/biceps/tri and reports YUNG with all ADLS. Pt limited with shoulder ROM and will have sx next week on it. pt d/c with scar desensitization HEP, and to resume normal use of right UE with ALDs and IADLs. If there are questions or concerns regarding this patient's occupational therapy, please fell free to call me at [phone]. Thank you for the referral of this patient. Sincerely, Anjali Cortes, OTR/L, CHT
== END 2020-01-08 19:00 | disposition home or self-care (01) ==
LOC: OT 15:00
PROVIDERS: Family Provider Family Medicine; PCP Family Medicine; Referring Provider Orthopaedic Surgery; Visit Provider Orthopaedic Surgery
DX: Z98.890 Other specified postprocedural states (principal)
CPT/HCPCS: 97035; 97110; 97140; 97165; 97166; 97530

== ENCOUNTER 2020-01-17 07:21 | Day surgery (SDC) | payer MEDICAID, SELFPAY ==
--- NOTE | 2020-01-04 02:26 | HP_ITS ---
I have re-examined the patient. There are no clinical changes since date of exam. Intake Vital Signs 01/04/20 BMI 26.1 Intake Visit Reasons: RIGHT SHOULDER Is patient in pain?: Yes Pain scale (1-10): 7 Allergies choline fenofibrate [From Trilipix] Allergy (Severe, Verified 12/13/19 10:00) Itching Jsxmshm-Bwi-Aym Reductase Inhibitor Allergy (Unknown, Verified 12/13/19 10:00) Itching fenofibrate Allergy (Verified 12/13/19 10:00) Itching Iodinated Contrast Media [Iodinated Contrast- Oral and IV Dye] Allergy (Verified 12/13/19 10:00) Itching omeprazole [From Prilosec] Allergy (Verified 12/13/19 10:00) Itching ranitidine Allergy (Verified 12/13/19 10:00) Itching acetaminophen [From Percocet] Adverse Reaction (Intermediate, Verified 01/04/20 14:25) Other oxycodone [From Percocet] Adverse Reaction (Intermediate, Verified 01/04/20 14:25) Other ULISES Inhibitors Adverse Reaction (Verified 12/13/19 10:00) Other erythromycin base Adverse Reaction (Verified 12/13/19 10:00) Upset Stomach PFSH Social History (Updated 01/05/20 @ 09:[address] Steffi Bellamy, ) Smoking Status: Current every day smoker alcohol intake: current alcohol intake frequency: holidays/special occasions only substance use type: does not use what type of physical activity do you participate in: other details: [employer] frequency: 1-2 times per week HPI RIGHT SHOULDER: Surgical H&P: Yes Details: Parts of this documentation were recorded by a scribe, this documentation accurately reflects the service provided and the decisions made by me, Dr. Steffi Bellamy DO 01/04/20 2945. YOCASTA CONTRERAS is a 49 year old F here today for right shoulder pain that is beginning to do into her biceps. She states she has altered her motions and activities to limit the pain. She has no pain at rest sitting, increased pain at night and the worst pain with extension. She states that the OT for the wrist and elbow were helpful but no relief in the shoulder at all. Denies numbness, tingling or other associated symptoms. She has tried otc nsaids with no relief. She has decrease rom in all ranges. Patient is a diabetic with a h/o of left frozen shoulder. ROS Musc Reports as per HPI, Reports joint pain, Reports stiffness Skin/Breast Reports system reviewed and no additional complaints, except as docu Neuro Yes system reviewed and no additional complaints, except as docu Ortho Exam Right Shoulder Testing: Negative AROM-Forward Elevation 0-180 (90), PROM-External Rotation at side 0-60 (45) or PROM-Forward Elevation 0-180 (110) Internal Rotation: Buttock No rales rhonchi wheezing, no abdominal pain, no audible bruits Assessment & Plan Problems 1. Adhesive capsulitis of right shoulder M75.01 Plan Treatment options for the right shoulder adhesive capsulitis are injections or WAYNE with PT scheduled the next day. As a diabetic it is recommended to have the WAYNE and PT. Patient will need norco after surgery, not percocet as has nightmares with percocet. Reviewed the pre-operative plans with the patient. Risks and benefits of the procedure were fully explained, including but not limited to infection, neurovascular injury, continued pain, arthritis, stiffness, need for further surgery, re-injury, DVT, PE, general risks of anesthesia, and loss of limb or life. The patient understands all the risks and does wish to proceed with written consent. Follow up postop or sooner if pain, swelling, numbness or associated symptoms, or concerns develop. All questions answered. Patient in agreement of plan. Coding Level of Care Code Off vis,est,level 4 Diagnoses Adhesive capsulitis of right shoulder M75.01 01/05/20 0942 <Electronically signed by Steffi adamson DO> Date _ Steffi Bellamy DO
[2020-01-04 14:26] VITALS: BMI 26.1
[2020-01-17 07:40] VITALS: BP 124/67; PULSE 88; RESP 15; TEMP 37.1; O2SAT 97; BMI 24.3
[2020-01-17 07:40] LABS: Bedside Glucose 209 mg/dL (70-110)
[2020-01-17] MEDS: Lactated Ringers 1,000 ML 100 ML IV (07:50)
--- NOTE | 2020-01-17 09:29 | PCM.OPRPT ---
Report of Operation Date of Procedure: 01/17/20 Pre-Operative Diagnosis: Right frozen shoulder/ adhesive capsulitis Post-Operative Diagnosis: same Surgery/Procedure Performed:: Right shoulder manipulation under anesthesia cooker mechanic: Johnny Pitts Type of Anesthesia:: Block,Regional, MAC Anesthesiologist: Mateo Sanches Replaced: 400cc Description of Procedure: Preoperative note Patient is a 49-year-old female well-known to me in clinic. Patient has had frozen shoulder bilateral upper extremities the left when she had a millimeters UA done and worked well she is experiencing the same difficulties with her right arm again failed conservative treatment and elected proceed with a right shoulder manipulation under anesthesia. Risk benefits and alternatives were discussed with patient at this the biggest risk from a manipulation under anesthesia is a right rotator cuff tear and fracture of the humerus. Patient is aware of this but still like to proceed with right shoulder manipulation under anesthesia. Operative Patient seen and examined preop holding area. Patient received a preoperative regional block. Patient brought to the operating placed supine on the operating table she did receive a sedation and we measured her preop range of motion she had 9 degrees flexion in the scapular plane she had about 2: 20 degrees external rotation neutral and she could internally rotate to her buttock. We then and standard sequential technique did forward flexion and scapular plane maintaining reduction and stabilization of the scapula at all times we did feel and hear an audible releasing of the adhesions with forward flexion the scapular plane we had full range of motion of the 180degrees we then brought the arm up to 9 degrees and externally rotate and internally rotated and did fine did release adhesions and those planes as well to do cross body abduction and that the side with the elbow at 90 degrees did externally rotate the elbow and had release of adhesions and external rotation as well we did do the sequence 1 more time just to ensure the had relief of all adhesions and full range of motion which she did have at that point. Patient taught procedure well no complications transferred recovery room in stable condition. Postoperative note Patient has prescription that was sent to her yesterday Patient has a physical therapy appointment tomorrow Patient to use her arm as tolerated Sling until block wears off Call with increased pain numbness tingling or other issues arise This note was generated with [employer] software. It may contain incorrect words, spelling, and punctuation that were not noted in checking the note before signing.
[2020-01-17 09:40] VITALS: BP 111/70; BP 124/67; PULSE 79; RESP 16; TEMP 37.1; O2SAT 93
[2020-01-17 09:45] VITALS: BP 112/70; BP 124/67; PULSE 78; RESP 16; O2SAT 92
[2020-01-17 10:00] VITALS: BP 124/67; BP 128/83; PULSE 79; RESP 16
[2020-01-17 10:06] VITALS: BP 124/67; BP 125/76; PULSE 78; RESP 16; TEMP 36.3; O2SAT 95
--- NOTE | 2020-01-17 10:14 | PCM.DC.ORTHO ---
Discharge Diet: No Restrictions - use arm as tolerated, come out of sling when block wears out, call with concerns Discharge Activity: May Not Drive May shower in (days): 1 Ice area for (Minutes): 20 - Every hour while awake. Weight Bearing Status: Weight bearing as tolerated Keep extremity elevated above heart level: Operative Extremity Call your doctor if your incision/area has: Continuous Slow Oozing, Sudden Increased Bleeding, Increased Pain/ Swelling, Increased Redness, Foul Smelling Discharge Call your doctor if you observe: Fever of 101 or Higher, Coldness, Increased Pain, Numbness or Tingling, Change in Color, Calf discomfort Allergies/Adverse Reactions: Allergies choline fenofibrate [From Trilipix] Allergy (Severe, Verified 01/17/20 07:32) Itching Sloepfe-Gdi-Lre Reductase Inhibitor Allergy (Unknown, Verified 01/17/20 07:32) Itching fenofibrate Allergy (Verified 01/17/20 07:32) Itching Iodinated Contrast Media [Iodinated Contrast- Oral and IV Dye] Allergy (Verified 01/17/20 07:32) Itching omeprazole [From Prilosec] Allergy (Verified 01/17/20 07:32) Itching ranitidine Allergy (Verified 01/17/20 07:32) Itching acetaminophen [From Percocet] Adverse Reaction (Intermediate, Verified 01/17/20 07:32) Other night terrors oxycodone [From Percocet] Adverse Reaction (Intermediate, Verified 01/17/20 07:32) Other night terrors ULISES Inhibitors Adverse Reaction (Verified 01/17/20 07:32) Other erythromycin base Adverse Reaction (Verified 01/17/20 07:32) Upset Stomach Medications to take at Discharge Ascorbic Acid [Vitamin C] 500 mg PO DAILY 01/28/18 Cholecalciferol (Vitamin D3) [Vitamin D3] 2,000 unit PO DAILY 01/28/18 Multivit with Calcium,Iron,Min [Multiple Vitamins For Women] 1 ea PO DAILY 01/28/18 [place]-3 Fatty Acids/Fish Oil [Fish Oil 1,000 mg Capsule] 1 ea PO DAILY 01/28/18 vitamin B complex 1 tab PO QDAY 03/23/18 albuterol sulfate 90 mcg/actuation aerosol inhaler 1 - 2 puff INHALATION Q6H PRN #8.5 g 05/18/19 metformin 500 mg 24 hr tablet,extended release 1,000 mg PO BID tab 06/07/19 acyclovir 400 mg tablet 400 mg PO BID #60 tab 08/28/19 dulaglutide 1.5 mg/0.5 mL subcutaneous pen injector 1.5 mg SC QWEEK 09/15/19 Budesonide/Formoterol Fumarate [Symbicort 160-4.5 Mcg Inhaler] 2 puff INHALATION BID 10/13/19 Meloxicam 15 mg PO DAILY 10/13/19 Pravastatin Sodium 80 mg PO DAILY 10/13/19 codeine 10 mg-guaifenesin 100 mg/5 mL oral liquid 5 ml PO Q6H PRN #120 ml 11/21/19 atenolol 50 mg tablet 50 mg PO BID #60 tab 12/13/19 cetirizine 10 mg capsule 10 mg PO DAILY #30 cap 12/13/19 Amlodipine [Norvasc] 5 mg PO DAILY 01/10/20 Ertugliflozin Pidolate [Steglatro] 5 mg PO DAILY 01/10/20 Valsartan/Hydrochlorothiazide [Valsartan-Hctz 160-12.5 mg Tab] 1 ea PO DAILY 01/10/20 hydrocodone 5 mg-acetaminophen 325 mg tablet See Rx Instructions PO Q6H PRN #26 tab 01/16/20 Primary Care Physician: Fortunato Avery DO [Primary Care Provider] - Test Results: Test results from this visit will be discussed in further detail at your follow-up appointment, if applicable. Please Follow Up With: Steffi Bellamy DO - [phone]
[2020-01-17 10:36] VITALS: BP 124/67
== END 2020-01-17 10:47 | disposition home or self-care (01) ==
LOC: SDC 07:22 → AC 07:23
PROVIDERS: PCP Family Medicine; Referring Provider Orthopaedic Surgery; Visit Provider Orthopaedic Surgery
PROC: (CPT 23700; principal; 2020-01-17 08:50)
DX: M75.01 Adhesive capsulitis of right shoulder (principal); I10 Essential (primary) hypertension; E78.00 Pure hypercholesterolemia, unspecified; E11.9 Type 2 diabetes mellitus without complications; J45.909 Unspecified asthma, uncomplicated; F17.200 Nicotine dependence, unspecified, uncomplicated; Z79.84 Long term (current) use of oral hypoglycemic drugs
CPT/HCPCS: 01620; 23700; 64415; 82962; J7120

== ENCOUNTER → 2020-02-01 09:37 | Outpatient (CLI) | payer MEDICAID, SELFPAY ==
[2020-02-01 08:42] VITALS: BMI 24.3
--- NOTE | 2020-02-01 09:38 | RAD_ITS ---
STUDY: X-RAY - RIGHT ELBOW REASON FOR EXAM: Female, 49 years old. PAIN IN RIGHT ELBOW. HX OF RIGHT ELBOW SURGERY FOR TENNIS ELBOW Sep, THAN FELL 2 WEEKS AFTER. PAIN IN RIGHT ELBOW SINCE THEN. TECHNIQUE: view(s) of the elbow. COMPARISON: None. FINDINGS: Normal visualized humerus, radius and ulna. Normal radiocapitellar and ulnotrochlear articulations. The soft tissue structures are unremarkable. There is no demonstrated fracture. RAD/Elbow min 3 Views IMPRESSION: Normal x-ray examination of the elbow. Electronically Signed: Lauren Ventura MD at 23:51 EDT , Service support ,
== END ==
PROVIDERS: PCP Family Medicine; Referring Provider Orthopaedic Surgery; Visit Provider Orthopaedic Surgery
DX: M77.11 Lateral epicondylitis, right elbow (principal)
CPT/HCPCS: 73080

== ENCOUNTER → 2020-03-18 12:56 | Outpatient (CLI) | payer MEDICAID, SELFPAY ==
[2020-03-07 09:16] VITALS: BMI 24.3
--- NOTE | 2020-03-18 12:57 | RAD_ITS ---
STUDY: X-RAY - RIGHT SHOULDER REASON FOR EXAM: Pain following manipulation, no specific injury. TECHNIQUE: 3 view(s) of the shoulder. COMPARISON: None. FINDINGS: Normal glenohumeral articulation. There is mild acromioclavicular arthrosis. Normal acromion. Normal humeral head and visualized proximal humerus. The soft tissue structures are unremarkable. Normal visualized pulmonary apex. RAD/Shoulder min 2 Views IMPRESSION: Mild acromioclavicular arthrosis. Electronically Signed: Isauro Zhou MD at 8:23 EDT Tel , Service support ,
== END ==
PROVIDERS: PCP Family Medicine; Referring Provider Orthopaedic Surgery; Visit Provider Orthopaedic Surgery
DX: M25.512 Pain in left shoulder (principal)
CPT/HCPCS: 73030

== ENCOUNTER 2020-03-21 10:00 | Outpatient (RCR) | payer MEDICAID, SELFPAY ==
[2020-01-04 14:26] VITALS: BMI 26.1
--- NOTE | 2020-01-18 13:25 | HP.PTEVAL_ITS ---
Patient's Visit Information YOCASTA CONTRERAS is a 49 year old F referred to Physical Therapy by Dr. Steffi Bellamy DO with a diagnosis of R shoulder pain, WAYNE procedure DOS: 01/17/20. Date of Evaluation: 01/18/20 Physical Therapist: John Alberts DPT - Visit Plan Frequency: x5 per week for 1st 2 wk Duration: 4-6 Weeks Plan: 1) PROM in all planes, joint mobs inferior/posterior/anterior glides. 2) AAROM wtih wand/bipin. 3) modalities as needed. 4) once ROM as been restored, initiate strengthening. x5 visits per week for 2 weeks, then wean to x3. Focus initially is on ROM both PROM and AROM. - Subjective Findings: Pt. is here today for her initial evaluaton after R shoulder WAYNE: DOS 01/17/20. Pt. reports being sore today, but overall okay. Pt. has been having trouble with her shoulder for a few years now. Pt. was having tennis elbow and believes she stopped moving and developed adheasive capsulitis. Pt. reports being pretty sore after never block wore off last night. She is having trouble s leeping, but is fairly normal for her over the past few years. Pt. denies N/T this date. She does have weakness, especially with lifting over head. She is recovering from a carpal tunnel and lateral epicondylitis surgery from end of last year. She reprots being motivated to get better in order to get back to work as she is going through a divorse and will have to re enter the work force. Pt. is hopeful to have full recovery of her motion and decrease her pain in order to complete all recreational and work related activities. - Pain R shoulder Pain Intensity (Out of 10): 4 Pain Intensity Range: 1, 8 Comment: anterior/lateral aspect - Objective POSTURE: Pt. has FH posture, rounded shoulders, tends to keep her R shoulder in guarded posture. PALPATION: Pt. has incraesed tenderness along anterior aspect of R shoulde and subacromial space. She has increased tenderness at R UT and R levator scap muscle bellies as well. NEURO: Normal throughout B UEs. ROM: PROM: R shoulder- flexion 150deg (increase pain empty end feel), abd 160deg (empty end feel), ER at 9d0eg 50deg, IR at 90deg 30deg. AROM: flexion 90deg, abd 95deg, functional IR R PSIS, functional ER External auditory meatus (very abherrant motion noted). MMT: wrist 5-/5 throughout; elbow- 4+/5 throughout; shoulder- flexion 4-/5, abd 4-/5, ER 4/5, IR 4/5. Increase in pain noted with all R shoulder testing. - Goals Goal 1:: LTG: Pt. to be I with HEP. Goal Time Frame: 4-6 Weeks Goal 2:: STG: Pt. to have full PROM of R shoulder without increase in symptoms. Goal Time Frame: 2-4 Weeks Goal 3:: LTG: Pt. to have full AROM of R shoulder. Goal Time Frame: 4-6 Weeks Goal 4:: STG: Pt. to sleep throughout the night without increase in symptoms. Goal Time Frame: 2-4 Weeks Goal 5:: LTG: Pt. to have increased strength of R shoulder to atleast 4+/5 throughout. Goal Time Frame: 4-6 Weeks Goal 6:: LTG: Pt. to be able to complete all ADLs and work related activities without limitations. Goal Time Frame: 6-8 Weeks - Rehabilitation Potential Physical Therapy Diagnosis: Pt. underwent a WAYNE of her R shoulder on 01/17/20. Pt. has hypombility, decreased strength, and increased pain with all functional activities and ADLs. Pt. would benefit from PT to address above limitations progressing back to all work and recreational activities without limitations. Rehabilitation Potential: Excellent - Anticipated Interventions Patient/Client Instruction: Educate patient on: Condition, Plan of Care, Risk Factors, Benefits of Fitness Program For the Purpose of:: To improve self management, To prevent re-injury, To improve ability to perform tasks related to life management, To improve tolerance to ADL's Therapeutic Exercise to Include: Strength training, Power training, Body mechanics, Postural training, Flexibilty training, Passive ROM, Active ROM, Desmond Exercises, Scapular Strength/Stabilization For the Purpose of:: To decrease pain, To decrease swelling/inflammation, To increase ROM, To improve nutrient delivery to tissue, To increase oxygenation perfusion, To improve muscle performance and motor function, To improve ability to perform ADL's Manual Therapy Techniques to Include: Mobilization, Passive ROM, Soft tissue mobilization For the Purpose of:: To decrease pain, To decrease swelling/inflammation, To increase ROM, To improve nutrient delivery to tissue, To increase oxygenation perfusion, To improve muscle performance and motor function IF ES: Yes Cryotherapy (ice pack, ice massage): Yes Thermo therapy (hot pack): Yes For the Purpose of:: To decrease pain, To decrease swelling/inflammation, To increase ROM, To improve nutrient delivery to tissue Thank you for the opportunity to evaluate your patient. For Medicare and Medicare HMO plans, please review the plan of care and approve it. It will need to be FAXED BACK to us at [phone] for Medicare purposes. For Medicare only, by signing this I certify the plan of care. Please let me know if there are questions or concerns regarding this plan of care. Physician Signature: Date:
--- NOTE | 2020-02-01 10:09 | HP.PTREVAL ---
Dr. Steffi Bellamy, DO, It has been my pleasure to treat YOCASTA CONTRERAS over the last 8 visits for R shoulder pain, WAYNE procedure DOS: 01/17/20. Please see the progress note below for an update on the physical therapy plan of care! Subjective: Pt. reports my shoulder is doing pretty well, but my elbow still hurts. Pt. reports having increased elbow pain with ER stretching. Objective/Function: Pt. is progressing with ROM both actively and Active assitively. Pt is still missing ~25% of active over head motions, with pain with abduction. Pt. has 70deg of ER at 90deg of abdcution. Pt. is still limited with her strength as well. Her main compliant at this point time is her elbow. Pt. reports no N/T. Pt. is sleeping better, but is still not all the way better. Plan Plan: 1) PROM in all planes, joint mobs inferior/posterior/anterior glides. 2) AAROM wtih wand/bipin. 3) modalities as needed. 4) once ROM as been restored, initiate strengthening. then wean to x3. Focus initially is on ROM both PROM and AROM. Goals Goal 1:: LTG: Pt. to be I with HEP. Goal Time Frame: 4-6 Weeks Goal 2:: STG: Pt. to have full PROM of R shoulder without increase in symptoms. Goal Time Frame: 2-4 Weeks Goal 3:: LTG: Pt. to have full AROM of R shoulder. Goal Time Frame: 4-6 Weeks Goal 4:: STG: Pt. to sleep throughout the night without increase in symptoms. Goal Time Frame: 2-4 Weeks Goal 5:: LTG: Pt. to have increased strength of R shoulder to atleast 4+/5 throughout. Goal Time Frame: 4-6 Weeks Goal 6:: LTG: Pt. to be able to complete all ADLs and work related activities without limitations. Goal Time Frame: 6-8 Weeks Anticipated Interventions Patient/Client Instruction: Educate patient on: Condition, Plan of Care, Risk Factors, Benefits of Fitness Program For the Purpose of:: To improve self management, To prevent re-injury, To improve ability to perform tasks related to life management, To improve tolerance to ADL's Therapeutic Exercise to Include: Strength training, Power training, Body mechanics, Postural training, Flexibilty training, Passive ROM, Active ROM, Desmond Exercises, Scapular Strength/Stabilization For the Purpose of:: To decrease pain, To decrease swelling/inflammation, To increase ROM, To improve nutrient delivery to tissue, To increase oxygenation perfusion, To improve muscle performance and motor function, To improve ability to perform ADL's Manual Therapy Techniques to Include: Mobilization, Passive ROM, Soft tissue mobilization For the Purpose of:: To decrease pain, To decrease swelling/inflammation, To increase ROM, To improve nutrient delivery to tissue, To increase oxygenation perfusion, To improve muscle performance and motor function IF ES: Yes Cryotherapy (ice pack, ice massage): Yes Thermo therapy (hot pack): Yes For the Purpose of:: To decrease pain, To decrease swelling/inflammation, To increase ROM, To improve nutrient delivery to tissue Please do not hesitate to contact me at [phone] by phone or if you have questions or concerns regarding this new plan of care! Sincerely, John Alberts DPT
--- NOTE | 2020-03-07 08:09 | HP.PTREVAL ---
Dr. Steffi Bellamy, DO, It has been my pleasure to treat YOCASTA CONTRERAS over the last 18 visits for R shoulder pain, WAYNE procedure DOS: 01/17/20. Please see the progress note below for an update on the physical therapy plan of care! Subjective: Pt. reports today is a good day. Not too bad right now. Pt. reprots being HEP compliant. No N/T today. Pt. to follow up with physician tomorrow. Objective/Function: Pt. reports being frustrated with her elbow and shoulder. She has good days and bad days. Pt. reports no N/T today. Pt. is being HEP compliant. She reports feeling like her shoulder is getting stiff again. ROM: R shoulder PROM: flexon 145deg increase NW (catches) empty end feel secondary to francie, abd 135deg increase NW (empty end feel). ER at 90deg 45deg increase nW, IR at 9d0eg 30deg. Pt. has limited ROM secondary to pain, prior to reaching tissue limitations. MMT: Pt. is limited with strength as well. Pt. has 4/5 throughout. Pt. has increased pain at lateral epicondyle and occassional wrist pain. Plan Plan: Pt. to follow up iwth physician tomorrow. Goals Goal 1:: LTG: Pt. to be I with HEP. Goal Time Frame: 4-6 Weeks Goal Progress: Progressing Goal 2:: STG: Pt. to have full PROM of R shoulder without increase in symptoms. Goal Time Frame: 2-4 Weeks Goal Progress: Progressing Goal 3:: LTG: Pt. to have full AROM of R shoulder. Goal Time Frame: 4-6 Weeks Goal Progress: Progressing Goal 4:: STG: Pt. to sleep throughout the night without increase in symptoms. Goal Time Frame: 2-4 Weeks Goal Progress: Progressing Goal 5:: LTG: Pt. to have increased strength of R shoulder to atleast 4+/5 throughout. Goal Time Frame: 4-6 Weeks Goal Progress: Not Progressing Goal 6:: LTG: Pt. to be able to complete all ADLs and work related activities without limitations. Goal Time Frame: 6-8 Weeks Goal Progress: Progressing Anticipated Interventions Patient/Client Instruction: Educate patient on: Condition, Plan of Care, Risk Factors, Benefits of Fitness Program For the Purpose of:: To improve self management, To prevent re-injury, To improve ability to perform tasks related to life management, To improve tolerance to ADL's Therapeutic Exercise to Include: Strength training, Power training, Body mechanics, Postural training, Flexibilty training, Passive ROM, Active ROM, Desmond Exercises, Scapular Strength/Stabilization For the Purpose of:: To decrease pain, To decrease swelling/inflammation, To increase ROM, To improve nutrient delivery to tissue, To increase oxygenation perfusion, To improve muscle performance and motor function, To improve ability to perform ADL's Manual Therapy Techniques to Include: Mobilization, Passive ROM, Soft tissue mobilization For the Purpose of:: To decrease pain, To decrease swelling/inflammation, To increase ROM, To improve nutrient delivery to tissue, To increase oxygenation perfusion, To improve muscle performance and motor function IF ES: Yes Cryotherapy (ice pack, ice massage): Yes Thermo therapy (hot pack): Yes For the Purpose of:: To decrease pain, To decrease swelling/inflammation, To increase ROM, To improve nutrient delivery to tissue Please do not hesitate to contact me at [phone] by phone or if you have questions or concerns regarding this new plan of care! Sincerely, John Alberts DPT
== END 2020-03-21 19:00 | disposition home or self-care (01) ==
LOC: PT 10:00
PROVIDERS: PCP Family Medicine; Referring Provider Orthopaedic Surgery; Visit Provider Orthopaedic Surgery
DX: Z98.890 Other specified postprocedural states (principal)
CPT/HCPCS: 97014; 97035; 97110; 97140; 97161; 97530; G0283

== ENCOUNTER → 2020-03-28 13:08 | Outpatient (CLI) | payer MEDICAID, SELFPAY ==
[2020-03-19 09:36] VITALS: BMI 24.3
--- NOTE | 2020-03-28 13:09 | MRI_ITS ---
STUDY: MRI RIGHT ELBOW REASON FOR EXAM: Right elbow pain for 6 years, elbow surgery in September. TECHNIQUE: Standardized fat and water weighted pulse sequences were obtained in all 3 orthogonal planes. COMPARISON: Radiographs 02/01/2020. FINDINGS: Normal radio-capitellum articulation. Normal radial collateral ligamentous complex. There is postoperative micrometallic artifact and tendinosis of the common extensor tendon (inversion recovery coronal images 9, 10) without focal discontinuity of the tendon. Normal ulnotrochlear articulation. Normal ulnar collateral ligamentous complex. Normal common flexor tendon. The cubital tunnel is normal, with a normal ulnar nerve. Normal biceps tendon and distal insertion. Normal lacertus fibrosis. Normal brachialis musculotendinous insertion. Normal triceps tendon and teno-osseous insertion. Normal olecranon process. There is an anchor in the lateral epicondyle. The visualized muscles of the distal arm and proximal forearm are normal. The soft tissue structures are unremarkable. MRI/Upper Ext Joint Only(Routine) IMPRESSION: Tendinosis and postoperative changes of the common extensor tendon without demonstrated extensor tendon tear. Electronically Signed: Isauro Zhou MD at 14:44 EDT Tel , Service support ,
== END ==
PROVIDERS: PCP Family Medicine; Referring Provider Orthopaedic Surgery; Visit Provider Orthopaedic Surgery
DX: M77.11 Lateral epicondylitis, right elbow (principal)
CPT/HCPCS: 73221

== ENCOUNTER → 2020-05-10 15:23 | Outpatient (CLI) | payer MEDICAID, SELFPAY ==
[2020-04-04 15:23] VITALS: BMI 24.3
--- NOTE | 2020-05-10 15:44 | MRI_ITS ---
STUDY: MRI RIGHT SHOULDER REASON FOR EXAM: Right shoulder pain and decreased range of motion. TECHNIQUE: Standardized fat and water weighted pulse sequences were obtained in all 3 orthogonal planes. COMPARISON: Radiographs 03/18/2020. FINDINGS: There is supraspinatus tendinosis (T2 coronal images 12-15) without discrete tendon tear. Normal infraspinatus tendon. Normal subscapularis tendon. Normal teres minor tendon. Normal supraspinatus muscle. Normal infraspinatus muscle. Normal subscapularis muscle. Normal teres minor muscle. Normal glenohumeral articulation. Normal humeral head and visualized proximal humerus. Normal biceps labral complex. There is mild tendinosis of the intracapsular long biceps tendon (T2 coronal image 15). Normal labrum. Normal capsulo- ligamentous complex. There is mild acromioclavicular arthrosis without substantial undersurface osteophytes (T2 sagittal image 11). There is a Type I morphology (flat undersurface), with a neutral orientation. There is a very small volume of subacromial-subdeltoid bursal fluid (T2 coronal images 9, 10). Normal visualized coracohumeral and coracoacromial ligaments. Normal deltoid muscle. Normal trapezius muscle. MRI/Upper Ext Joint Only(Routine) IMPRESSION: Supraspinatus tendinosis without demonstrated rotator cuff tear. Mild tendinosis of the long biceps tendon. Mild acromioclavicular arthrosis. Very mild subacromial-subdeltoid bursitis. Electronically Signed: Isauro Zhou MD at 7:07 EDT Tel , Service support ,
== END ==
PROVIDERS: PCP Family Medicine; Referring Provider Orthopaedic Surgery; Visit Provider Orthopaedic Surgery
DX: M25.611 Stiffness of right shoulder, not elsewhere classified (principal)
CPT/HCPCS: 73221

== ENCOUNTER → 2020-05-22 10:32 | Outpatient (CLI) | payer MEDICAID, SELFPAY ==
[2020-05-22 10:01] VITALS: BMI 24.3
[2020-05-22 13:03] LABS: ALB/GLOB Ratio 1.2 RATIO (0.9-2.4); AST(SGOT) 19 U/L (15-37); Alanine Aminotransfer ALT/SGPT 45 U/L (13-56); Albumin, Serum 3.9 g/dL (3.2-5.0); Alkaline Phosphatase 69 U/L (45-117); Anion Gap 4 (5-15); BUN 16 mg/dL (7-18); BUN/Creat Ratio 17.4 RATIO (10-20); Calcium,Total 9.2 mg/dL (8.5-10.1); Chloride 108 mmol/L (98-107); Cholesterol 90 mg/dL (200); Creatinine, Serum 0.92 mg/dL (0.55-1.02); EST Glomerular Filtration Rate 68 mL/min (>60); Est Glom Filt Rate - Afr Amer 83 mL/min (>60); Globulin 3.3 g/dL (2.2-4.2); Glucose 154 mg/dL (74-106); High Density Lipoprotein 27 mg/dL; Potassium 4.7 mmol/L (3.5-5.1); Protein, Total 7.2 g/dL (6.4-8.2); Sodium Level 141 mmol/L (136-145); Thyroid Stim Hormone (TSH) 2.08 uIU/mL (0.358-3.74); Triglycerides 169 mg/dL; Very Low Density Lipoprotein 34 mg/dL (5-40)
== END ==
PROVIDERS: PCP Family Medicine; Referring Provider Family Medicine; Visit Provider Family Medicine
DX: E11.9 Type 2 diabetes mellitus without complications (principal); L65.9 Nonscarring hair loss, unspecified
CPT/HCPCS: 36415; 80053; 80061; 84443

== ENCOUNTER → 2020-09-12 | Outpatient (CLI) | payer MEDICAID, SELFPAY ==
[2020-08-27 09:41] VITALS: BMI 24.3
--- NOTE | 2020-09-12 | EMB_PTH ---
PATIENT: YOCASTA CONTRERAS LOC: [facility] U#:[id number] AGE/SX: 50/F ROOM: RE09/12/[address]: Dr. Jose Contreras MD : 1970 BED: DIS: 09/12/2020 SPEC #: [id number] RECD: 09/12/20 15:00 STATUS: KESHIA REHaim #: [id number] RABIA: 09/12/20 00:[address]: Jose Contreras DEPT: SURGICAL PATHOLOGY RECD BY: Beth Lynn ENTERED: 09/13/20 07:36 SP TYPE: ENDOM BX/C LOLA DR: Dr. Fortunato Avery, DO Tissues: Endometrium, NOS Procedures: Surgery Specimen Level IV HEADER OPERATION: Endometrial biopsy PRE-OP DIAGNOSIS: Postmenopausal bleeding TISSUE SUBMITTED: Endometrial biopsy MICROSCOPIC DIAGNOSIS Endometrium, biopsy: Scant strips of benign superficial glandular mucosa. See comment. AM:linette 09/16/20 COMMENT The specimen primarily consists of mucous. Clinical correlation is suggested. MICROSCOPIC DESCRIPTION Slides are reviewed. GROSS DESCRIPTION Received is one container labeled with the patient's name and not further designated. The specimen consists of multiple irregular fragments of seay mucoid tissue that in aggregate measure 3 x 2.5 x 0.3 cm. The specimen is totally submitted in one cassette. / SJ:linette 09/13/20 TC:5 [facility]: [id number]
== END | disposition home or self-care (01) ==
LOC: LABSPEC 13:32
PROVIDERS: PCP Family Medicine; Visit Provider Obstetrics & Gynecology
DX: N95.0 Postmenopausal bleeding (principal)
CPT/HCPCS: 88305

== ENCOUNTER → 2020-10-01 | Outpatient (CLI) | payer MEDICAID, SELFPAY ==
[2020-09-26 09:24] VITALS: BMI 21.6
[2020-10-04 17:41] LABS: HPV APTIMA, High Risk Negative (Negative)
== END | disposition home or self-care (01) ==
LOC: LABSPEC 11:50
PROVIDERS: PCP Family Medicine; Visit Provider Obstetrics & Gynecology
DX: Z12.4 Encounter for screening for malignant neoplasm of cervix (principal)
CPT/HCPCS: 87624; 88175; G0145

== ENCOUNTER → 2020-10-05 08:30 | Outpatient (CLI) | payer MEDICAID, SELFPAY ==
[2020-09-26 09:24] VITALS: BMI 21.6
--- NOTE | 2020-10-05 08:32 | BI_ITS ---
MAMMOGRAPHY - BILATERAL SCREENING REASON FOR EXAM: Female, 50 years old. Routine annual screening examination. PERTINENT HISTORY: Non-contributory. TECHNIQUE: Digital bilateral breast supa (3D mammographic acquisition) in the CC and MLO projections. 2-D mediolateral oblique (MLO) and craniocaudad (CC) views of both breasts were obtained. CAD: Full Field Digital Mammography with Computer Added Detection was performed. COMPARISON: Comparison is made with prior study dated 03/21/2018 and 04/19/2015. FINDINGS: Breast Composition: The breasts are heterogeneously dense, which may obscure small masses. There are no dominant masses or suspicious calcifications. No other significant abnormalities are identified. There has been no significant change since the prior study. BI/SCREEN MAMM (CAD) W/SUPA BILAT IMPRESSION: Stable bilateral screening mammogram. Yearly follow-up mammogram recommended. (A) ASSESSMENT CATEGORY: BIRADS Category 1: Negative. A letter regarding these results will be sent to the patient by the facility within 30 days. Approximately 10% of breast cancers are not detected by mammography. A normal mammogram should not delay biopsy of a clinically suspicious abnormality. [id number] Electronically Signed: Jb Tuttle, at 8:36 EST , Service support ,
== END ==
PROVIDERS: PCP Family Medicine; Referring Provider Obstetrics & Gynecology; Visit Provider Obstetrics & Gynecology
DX: Z12.31 Encounter for screening mammogram for malignant neoplasm of breast (principal)
CPT/HCPCS: 77063; 77067

== ENCOUNTER 2020-11-28 05:21 | Day surgery (SDC) | payer MEDICAID, SELFPAY ==
[2020-09-26 09:24] VITALS: BMI 21.6
--- NOTE | 2020-11-25 09:41 | EKG12_ITS ---
Test Reason : PRE OP Blood Pressure : / mmHG Vent. Rate : 075 BPM Atrial Rate : 075 BPM P-R Int : 168 ms QRS Dur : 084 ms QT Int : 378 ms P-R-T Axes : 069 084 069 degrees QTc Int : 422 ms Normal sinus rhythm Normal ECG Confirmed by JAMMIE HARPER, TYRONE ([id number]), scientific publications editor AMY YOUNGBLOOD ([id number]) on 11/26/2020 8:57:46 AM Referred By: Jose Miranda Confirmed By:TYRONE AGUDELO MD
[2020-11-25 11:40] LABS: Hemoglobin 15.6 g/dL (12.0-15.0); Mean Corp Hgb Conc 32.5 g/dL (32-36); Mean Corpuscular Hgb 30.2 pg (27.0-32.0); Mean Platelet Vol. 11.2 fl (6.2-12.0); Platelet Count 240 K/mm3 (150-450); RBC Distribution Width CV 13.2 % (11.6-14.6); RBC Distribution Width SD 45.1 fl (35.1-43.9); Red Blood Count 5.16 M/mm3 (4.2-5.4); White Blood Count 11.1 K/mm3 (4.4-11.0)
[2020-11-25 12:03] LABS: Anion Gap 4 (5-15); BUN 15 mg/dL (7-18); BUN/Creat Ratio 18.6 RATIO (10-20); Calcium,Total 9.7 mg/dL (8.5-10.1); Chloride 107 mmol/L (98-107); Creatinine, Serum 0.81 mg/dL (0.55-1.02); EST Glomerular Filtration Rate 80 mL/min (>60); Est Glom Filt Rate - Afr Amer 96 mL/min (>60); Glucose 132 mg/dL (74-106); Magnesium 1.9 mg/dL (1.6-2.6); Potassium 4.2 mmol/L (3.5-5.1); Sodium Level 142 mmol/L (136-145)
--- NOTE | 2020-11-27 17:46 | PCM.HPOB.BLA ---
History and Physical Name: YOCASTA MIRANDA Age: 50 Date of : 1970 Yocasta Miranda, a 50 year old female 3 0 1 0 3, presents for Robotic assisted total laparoscopic hysterectomy, bilateral salpingo oophorectomy, cystoscopy on November 28, 2020 at 7:30. -- Yocasta with postmenopausal bleed. She states no bleeding since 2017 and then had an episode of bleeding that started last week. States increased stress with her divorce being final today. Planned Robotic TLH/BSO Cysto. Consents are signed and PAT packet provided. MEDICATIONS HISTORY: Current medications prescribed by our practice are: 1. fluconazole 150 mg tablet, prn 2. Trulicity 1.5 mg/0.5 mL subcutaneous pen injector, weekly Patient is also takin. acyclovir 400 mg tablet, bid 2. Claritin 10 mg tablet, daily 3. doxycycline hyclate 20 mg tablet, bid 4. meloxicam 15 mg tablet, daily 5. metformin ER 500 mg tablet,extended release 24 hr, bid 6. [place] 3-6-9 1,200 mg capsule, daily 7. rosuvastatin 40 mg tablet, daily 8. Steglatro 15 mg tablet, daily 9. Women's 50 Plus Daily Formula 400 mcg-500 mg calcium-20 mcg tablet, daily ALLERGIES: Diogo Inhibitors, Dry cough, Nystatin, Rash, itching, Erythromycin Base, Stomach ache, IVP Dye, Iodine Containing, Rash, itching, Prevacid, Rash, itching, Shellfish Derived, Facial swelling, Percocet, Intolerance-unknown, Percocet, Intolerance-unknown, Ranitidine, Intolerance-unknown, Simvastatin and Intolerance-unknown Infections - Chicken pox Illnesses - DMll, HTN, Hyperlipidemia, Asthma and COPD Accidents - no injuries of consequence Hospitalizations - see surgery skin cancer; Review of Systems: GENERAL - Denies fever, or chills SKIN - Denies skin changes EYES - wears eye glasses EARS - Denies difficulty hearing NOSE - Denies nasal congestion or bleeding MOUTH - Denies sore throat or difficulty swallowing NECK - Denies pain or swelling RESPIRATORY - Denies shortness of breath or wheezing CARDIOVASCULAR - Denies palpitations or chest pain GASTROINTESTINAL - Denies nausea, vomiting, diarrhea, constipation GENITOURINARY - Cramping, Postmenopausal bleed MUSCULOSKELETAL - Denies joint or muscle pain NEUROLOGICAL - Denies localized numbness or weakness PSYCHIATRIC - Denies depression or anxiety ENDOCRINE - Denies heat or cold intolerance, weight loss or gain HEMATO-IMMUNOLOGIC - Denies excessive bleeding with cuts SOCIAL HISTORY: Alcohol Use - None Smoking - 1 PPD, ATQ Diet - no special diet Lifestyle - today Exercise - 1 or 2 times per week Employer - unemployed Illicit Drug Use - denies use of street drugs Sexual Activity - Not currently sexually active Control - postmenopausal FAMILY HISTORY: MENSTRUAL HISTORY: LMP Known?- Postmenopausal, LMP - 07/12/17, Age Onset Menarche - 12 PAST PREGNANCIES: Total Pregnancies - 4; Full Term Pregnancies - 3; Premature - 0; Abortions, Induced - 0; Abortions, Spontaneous - 1; Ectopics - 0; Multiple Births - 0; Living Children - 3 SURGICAL HISTORY: 1. 3 C/S ; - 2. Tubal ; - 3. Tonsils ; - 4. Elbow ; - 5. carpal tunnel ; - 6. Shoulder surgery ; - PHYSICAL EXAM BP- 140/78 Sitting, Right arm, regular cuff Temp- 98.4 forehead Weight- 138.71754 lbs Height- 67 inch BMI:21.66 CONSTITUTIONAL - NAD, well nourished, and well developed SKIN - No rash, lesions, or ulcers HEENT - Normocephalic, PERRLA, EOMI NECK - No nodes, no nuchal rigidity and thyroid normal size and texture LYMPH NODES - Palpation of lymph nodes in neck and groins within normal limits LUNGS - CTA x2 without wheezes, crackles or rales CARDIAC - Regular rate and rhythm without rubs, murmurs, or gallops ABDOMEN - Without hepatosplenomegaly, distention, masses, rebound, or guarding; normal bowel sounds; no hernias EXTREMITIES - No edema or calf tenderness NEUROLOGICAL - Cranial nerves II-XII grossly intact PSYCHIATRIC - A and O to time, place, person, mood and affect External Genitial Vagina - non-tender without lesions Urethra/Urethral Meatus - non-tender Bladder - non-tender Vagina - vaginal cosme are pink and moist without loss of rugae and no evidence of atropy Cervix - without cervical motion tenderness and has normal size and features without evident lesions Uterus - 5-6 cm in size, mobile and nontender Adnexa - clear without masses or tenderness ASSESSMENT/PLAN: 1. Encounter For Other Preprocedural Examination PMB. Menopausal for 3 years. Pt for [facility] BSO cystoscopy. R/b/a discussed, questions answered, consent signed. Pt to hold diabetic meds, desire ERAS ensure. Declines preop HgbA1c, last A1c 7.8, r/b/a discussed understands risks with elevated BS. Will take morning Atenolol. U/s uterus 7.6x4cm. U/s with 4.5mm stripe. EMB scant benign tissue Discussed risks of bladder injury and open incision with hx of c/s x3, pt states understanding. No changes in health, no complications with anesthesia, no issues with daily activity. 2. Unspecified Ovarian Cyst, Right Side right ovarian 4x3cm complex cyst Discussed risks of malignancy, pt desires BSO
[2020-11-28] VITALS (11 sets, daily range): BP systolic 108–154; BP diastolic 59–95; PULSE 58–81; RESP 12–18; TEMP 36.2–36.8; O2SAT 94–100; BMI 21.7
--- NOTE | 2020-11-28 | HYST_PTH ---
PATIENT: YOCASTA CONTRERAS LOC: [facility] U#:[id number] AGE/SX: 50/F ROOM: RE11/28/[address]: Dr. Jose Contreras MD : 1970 BED: DIS: 11/28/2020 SPEC #: [id number] RECD: 11/28/20 12:40 STATUS: KESHIA REHaim #: [id number] RABIA: 11/28/20 00:[address]: Jose Contreras DEPT: SURGICAL PATHOLOGY RECD BY: Kin Knott ENTERED: 11/28/20 12:41 SP TYPE: HYSTERECT OTHR DR: Dr. Fortunato Avery, Tissues: Uterus, NOS Procedures: Surgery Specimen Level V HEADER OPERATION: ERAS, lap robotic hysterectomy, bilateral salpingo-oophorectomy PRE-OP DIAGNOSIS: PMB, ovarian cyst right side TISSUE SUBMITTED: Uterus, cervix, bilateral fallopian tubes and ovaries MICROSCOPIC DIAGNOSIS Uterus, hysterectomy: Cervix - squamous metaplasia, mild chronic inflammation and nabothian cysts. Endometrium - weakly proliferative to inactive endometrium. Myometrium - focal superficial adenomyosis. Right ovary - corpora albicantia. Benign epithelial inclusion cysts. Right fallopian tube - no pathologic change. Left ovary - corpora albicantia. Right fallopian tube - no pathologic change. AM:linette 11/29/2020 COMMENT Case has been reviewed in consultation with Dr. Castillo who concurs with the above diagnosis. IDC:SJ MICROSCOPIC DESCRIPTION Slides are reviewed. GROSS DESCRIPTION Received in fixative is one container labeled with the patient's name and designated uterus. The specimen consists of a uterus with attached cervix and attached right and left fallopian tubes and ovaries. The uterus with cervix measures 7.5 x 4.8 x 3 cm and weighs 46 gm. The ectocervix is unremarkable. The cervical os is oval in contour. The endocervical canal measures 3 cm in length and is grossly unremarkable. The triangular endometrial cavity measures 3.6 x 2.5 cm. The endometrium measures up to 0.2 cm in thickness and is free of mass lesions. The myometrium measures 1.5 cm in average thickness and is free of mass lesions. The smooth, glistening, crinkled right ovary measures 3 x 2.2 x 1.6 cm. Serial sections of the ovary does not reveal mass lesions. The adjacent right fallopian tube measures 4 cm in length and 0.4 cm in average diameter. The left ovary is similar in appearance to the right ovary and measures 3.6 x 2.2 x 1.5 cm and serial sections do not reveal mass lesions. The left fallopian tube is similar in appearance to right tube and measures 5.6 cm in length and 0.4 cm in average diameter. No tubo-ovarian adhesions are identified. [employer] Lead sections are submitted in eight cassettes as follows: 1 - anterior cervix, 2 - posterior cervix, 3 & 4 - anterior uterine wall, 5 & 6 - posterior uterine wall, 7 - right fallopian tube and ovary, 8 - left fallopian tube and ovary. / AM:linette 11/28/2020 TC:5 CPT: 05334
[2020-11-28] MEDS: Lactated Ringers 1,000 ML 40 ML IV ×2 (06:28→09:01)
[2020-11-28] MEDS: Acetaminophen 500 MG Tablet 1000 MG PO (06:29)
[2020-11-28] MEDS: Gabapentin 600 MG Tablet PO (06:31)
[2020-11-28] MEDS: Celecoxib 200 MG Capsule 400 MG PO (06:31)
[2020-11-28] MEDS: dexAMETHasone 10 MG/ML Vial 8 MG IV (06:34)
[2020-11-28] MEDS: Insulin Lispro 100 UNIT/ML INSULN.PEN SC (06:41)
[2020-11-28] MEDS: Cefazolin 2 GM in 0.9% Normal Saline 100 ML IV (07:51)
[2020-11-28] MEDS: Lubricating Jelly 60 GM Tube 30 GM TOPICAL (08:08)
[2020-11-28] MEDS: Ropivacaine 0.5% 30 ML Vial (08:30)
[2020-11-28] MEDS: Ondansetron 4 MG/2 ML Vial IV (09:38)
--- NOTE | 2020-11-28 09:53 | DCINST_ITS ---
Discharge Diet: No Restrictions Discharge Activity: Return to Normal Activity, May Drive, May not drive while taking narcotic pain medications., May Shower, - - No tub baths for two weeks May resume sexual activity in: 2 weeks Lifting Restrictions: No lifting over 25 pounds for three weeks Call your doctor if your incision/area has: Foul Smelling Discharge Call your doctor if you observe: Fever of 101 or Higher, Shortness of breath, Chest pain Allergies/Adverse Reactions: Allergies choline fenofibrate [From Trilipix] Allergy (Severe, Verified 11/28/20 06:20) Itching Wxjzqxh-Abj-Ekp Reductase Inhibitor Allergy (Unknown, Verified 11/28/20 06:20) Itching fenofibrate Allergy (Verified 11/28/20 06:20) Itching Iodinated Contrast Media [Iodinated Contrast- Oral and IV Dye] Allergy (Verified 11/28/20 06:20) Itching omeprazole [From Prilosec] Allergy (Verified 11/28/20 06:20) Itching ranitidine Allergy (Verified 11/28/20 06:20) Itching acetaminophen [From Percocet] Adverse Reaction (Intermediate, Verified 11/28/20 06:20) Other night terrors oxycodone [From Percocet] Adverse Reaction (Intermediate, Verified 11/28/20 06:20) Other night terrors ULISES Inhibitors Adverse Reaction (Verified 11/28/20 06:20) Other erythromycin base Adverse Reaction (Verified 11/28/20 06:20) Upset Stomach Medications to take at Discharge Ascorbic Acid [Vitamin C] 500 mg PO DAILY 01/28/18 Cholecalciferol (Vitamin D3) [Vitamin D3] 2,000 unit PO DAILY 01/28/18 Multivit with Calcium,Iron,Min [Multiple Vitamins For Women] 1 ea PO DAILY 01/28/18 [place]-3 Fatty Acids/Fish Oil [Fish Oil 1,000 mg Capsule] 1 ea PO DAILY 01/28/18 vitamin B complex 1 tab PO QDAY 03/23/18 atenolol 50 mg tablet 50 mg PO BID #60 tab 12/13/19 cetirizine 10 mg capsule 10 mg PO DAILY #30 cap 12/13/19 albuterol sulfate 90 mcg/actuation aerosol inhaler See Rx Instructions .ROUTE .COMPLEX #9 g 01/31/20 tramadol 50 mg tablet 50 mg PO Q8H PRN #30 tab 02/01/20 acyclovir 400 mg tablet 400 mg PO BID #60 tab 04/03/20 FreeStyle Marybeth 14 Day Sensor See Rx Instructions .ROUTE .MEDSUPPLY #2 ea NS 08/27/20 dulaglutide 1.5 mg/0.5 mL subcutaneous pen injector 1.5 mg SC QWEEK #2 ml 08/27/20 ertugliflozin 15 mg tablet 15 mg PO QAM #30 tab 08/27/20 metformin 500 mg 24 hr tablet,extended release 1,000 mg PO BID #180 tab 08/27/20 rosuvastatin 40 mg tablet 40 mg PO DAILY #30 tab 08/27/20 Oxycodone [Oxyir] 5 mg PO Q4H PRN PRN 7 Days #28 tab 11/28/20 The following prescriptions were given: Oxycodone [Oxyir] 5 mg PO Q4H PRN PRN 7 Days #28 tab PRN Reason: Pain Score 6-10 Transmission Status: Received by [facility] Primary Care Physician: Fortunato Avery DO [Primary Care Provider] - Test Results: Test results from this visit will be discussed in further detail at your follow- up appointment, if applicable. Please Follow Up With: Jose Miranda MD When: 2 weeks
--- NOTE | 2020-11-28 09:54 | OP.PCM_ITS ---
Report of Operation Date of Procedure: 11/28/20 Pre-Operative Diagnosis: Postmenopausal bleeding, right ovarian cyst Post-Operative Diagnosis: Postmenopausal bleeding Surgery/Procedure Performed:: Robotic assisted total laparoscopic hysterectomy bilateral salpingo-oophorectomy, cystoscopy Description of Surgical Findings:: Surgeon: Jose Miranda MD Anesthesia: General EBL: 50 cc Urine output: 300 cc IV fluids: 1000 cc Complications: None Specimen: Cervix uterus fallopian tubes and ovaries Findings: Normal uterus, tubes, right ovarian cyst. Post procedure cystoscopy revealed no pathology, revealed bilateral ureteral jets. Consent: Patient with postmenopausal bleeding elects for robotic assisted total laparoscopic hysterectomy bilateral salpingo-oophorectomy and cystoscopy. Patient understands the risk of the procedure include but are not limited to visceral or vascular injuries, prolonged hospitalization, blood loss need for transfusion, reoperation. Patient states understanding wished to proceed. All questions were answered and consent was signed. Procedure: Patient was brought back to the OR where general anesthesia was found to be adequate. 2 g of Ancef were given for infection prophylaxis. Patient was prepared and draped in a dorsal lithotomy position with yellowfin stirrups. Weighted speculum was placed in the posterior aspect of the vagina single-tooth tenaculum was used to grasp the anterior lip of the cervix. Cervical dilators were used to dilate cervix. Uterine manipulator was placed. Midline supraumbilical 8 mm trocar was inserted and abdomen was insufflated. Laparoscopic camera was inserted and above findings were noted. Bilateral 8 mm trochars were placed under direct visualization. Left upper quadrant 8 mm trocar was placed. Right upper quadrant 5 mm trocar was placed. Robot was docked. Using a fenestrated bipolar and monopolar scissors the right round ligament was cut and cauterized, anterior and posterior flap of the broad ligament were carefully dissected. Bladder flap was developed. Right gonadal vessel was cut and cauterized. Right uterine vessels were skeletonized. Uterine vessels were cut and cauterized. Lateralized beyond the level of the colpotomy cup. Bladder flap was further developed. Left round ligament was cut and cauterized bladder flap was completed. Anterior posterior portions of the broad ligament were carefully dissected. Left gonadal vessels were cut and cauterized. Left uterine vessels were skeletonized. Uterine vessels were cut and cauterized. Lateralized beyond the level of colpotomy cup. Bladder and uterine vessels were developed beyond the level of the colpotomy cup. Circumferential colpotomy was performed. Uterus fallopian tubes and ovaries were removed. Good hemostasis noted. Colpotomy was closed in a continuous running fashion. Good hemostasis was noted. Abdomen pressure was lowered good hemostasis noted. Trochars removed under direct visualization the abdomen was desufflated. Cystoscopy was performed and above findings were noted. No pathology noted. Laparoscopic incisions were closed in a subcutaneous fashion. All counts correct x2. Patient tolerated procedure well was brought to recovery in stable condition. 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
[2020-11-28] MEDS: oxyCODONE 5 MG Tablet PO (11:57)
== END 2020-11-28 14:15 | disposition home or self-care (01) ==
LOC: SDC 05:21 → AC 05:22
PROVIDERS: Anesthesiology; PCP Family Medicine; Referring Provider Obstetrics & Gynecology; Visit Provider Obstetrics & Gynecology
PROC: 0UT94ZZ Resection of Uterus, Percutaneous Endoscopic Approach (ICD-10-PCS; CPT 58571; principal; 2020-11-28 07:10)
DX: N95.0 Postmenopausal bleeding (principal); N83.291 Other ovarian cyst, right side; N83.292 Other ovarian cyst, left side; N88.8 Other specified noninflammatory disorders of cervix uteri; N87.9 Dysplasia of cervix uteri, unspecified; N80.0 Endometriosis of uterus; I10 Essential (primary) hypertension; E78.00 Pure hypercholesterolemia, unspecified; E11.9 Type 2 diabetes mellitus without complications; F32.9 Major depressive disorder, single episode, unspecified; J44.9 Chronic obstructive pulmonary disease, unspecified; F17.200 Nicotine dependence, unspecified, uncomplicated; Z79.1 Long term (current) use of non-steroidal anti-inflammatories (NSAID); Z79.84 Long term (current) use of oral hypoglycemic drugs; Z79.899 Other long term (current) drug therapy; Z20.822 Contact with and (suspected) exposure to COVID-19
CPT/HCPCS: 00840; 58571; S2900; 36415; 80048; 83735; 85027; 86850; 86900; 86901; 87426; 88307; 93005; C9803; J7120; A4216; J2405; J3475

== ENCOUNTER → 2021-04-30 10:13 | Outpatient (CLI) | payer MEDICAID, SELFPAY ==
--- NOTE | 2021-04-30 14:26 | NEURO ---
NCS and/or EMG Patient Report Ordering Doctor: Johnny Pitts DATE OF SERVICE: 04/30/21 Anjali Miranda presents for electrodiagnostic testing of the right upper limb. She reports pain throughout the right arm with numbness in the right hand. She has a history of carpal tunnel release in 2019. Electrodiagnostic findings: Right median motor nerve demonstrates normal distal latency, amplitude and conduction velocity. Normal right ulnar motor response, including conduction across the elbow normal median ulnar F waves. Mildly prolonged right median sensory latency at the wrist. On needle EMG, all muscles tested in the right upper limb, as well as right cervical paraspinals, showed no evidence of denervation with normal motor unit action potentials Electrodiagnostic impression: This is an abnormal study in the right upper limb. 1. Electrodiagnostic findings suggestive of right median mononeuropathy. This is consistent with a mild recurrent right carpal tunnel syndrome 2. No electrodiagnostic evidence for ulnar neuropathy. 3. No electrodiagnostic evidence for cervical radiculopathy
== END ==
PROVIDERS: PCP Family Medicine; Referring Provider Physician Assistant; Visit Provider Physician Assistant
DX: R20.2 Paresthesia of skin (principal)
CPT/HCPCS: 95886; 95910

== ENCOUNTER → 2021-07-04 13:56 | Outpatient (CLI) | payer MEDICAID, SELFPAY ==
[2021-06-25 10:31] VITALS: BMI 22.1
--- NOTE | 2021-07-04 14:01 | RAD_ITS ---
STUDY: X-RAY - PELVIS AND RIGHT HIP REASON FOR EXAM: Right hip pain, decreased range of motion, no specific injury. TECHNIQUE: 2 views of the pelvis and hip. COMPARISON: None. FINDINGS: There are small pelvic phleboliths. Normal bilateral iliac wings, sacroiliac joints and visualized sacrum. Normal bilateral superior and inferior pubic rami. Normal pubic symphysis. Normal bilateral ischial tuberosities. Normal visualized femoral head. Normal acetabulum. Normal hip joint. RAD/HIP, UNI W/ Pelvis 2-3 Views IMPRESSION: Unremarkable x-ray examination of the pelvis and right hip. Electronically Signed: Isauro Zhou MD at 14:32 EDT Tel , Service support ,
== END ==
PROVIDERS: PCP Family Medicine; Referring Provider Family Medicine; Visit Provider Family Medicine
DX: M25.551 Pain in right hip (principal)
CPT/HCPCS: 73502

== ENCOUNTER → 2021-07-24 14:01 | Outpatient (CLI) | payer MEDICAID, SELFPAY ==
[2021-07-24 15:38] LABS: Vitamin D,25 Hydroxy 55.2 ng/mL
[2021-07-24 15:44] LABS: Microalbumin,Random Urine 10.3 mg/L (NO RANGE EST.); Microalbumin:Creatinine Ratio 19.1 mg/g CRE (<30 mg/g CRE)
[2021-07-24 15:49] LABS: ALB/GLOB Ratio 1.3 RATIO (0.9-2.4); AST(SGOT) 17 U/L (15-37); Alanine Aminotransfer ALT/SGPT 39 U/L (13-56); Albumin, Serum 3.9 g/dL (3.2-5.0); Alkaline Phosphatase 60 U/L (45-117); Anion Gap 4 (5-15); BUN 23 mg/dL (7-18); BUN/Creat Ratio 29.2 RATIO (10-20); Calcium,Total 9.1 mg/dL (8.5-10.1); Chloride 108 mmol/L (98-107); Cholesterol 109 mg/dL (200); Creatinine, Serum 0.79 mg/dL (0.55-1.02); EST Glomerular Filtration Rate 82 mL/min (>60); Est Glom Filt Rate - Afr Amer 99 mL/min (>60); Glucose 131 mg/dL (74-106); High Density Lipoprotein 45 mg/dL; Potassium 4.2 mmol/L (3.5-5.1); Protein, Total 6.9 g/dL (6.4-8.2); Sodium Level 141 mmol/L (136-145); Thyroid Stim Hormone (TSH) 1.32 uIU/mL (0.358-3.74); Triglycerides 89 mg/dL; Very Low Density Lipoprotein 18 mg/dL (5-40)
== END ==
PROVIDERS: PCP Family Medicine; Referring Provider Nurse Practitioner Family; Visit Provider Nurse Practitioner Family
DX: E11.65 Type 2 diabetes mellitus with hyperglycemia (principal)
CPT/HCPCS: 36415; 80053; 80061; 82043; 82306; 82570; 84443

== ENCOUNTER 2022-02-04 15:36 | Outpatient (CLI) | payer MEDICAID, SELFPAY ==
--- NOTE | 2022-02-04 15:59 | BI_ITS ---
MAMMOGRAPHY - BILATERAL SCREENING 3-D TOMOSYNTHESIS REASON FOR EXAM: Female, 51 years old. screening PERTINENT HISTORY: No significant family history. TECHNIQUE: 2-D mammograms and 3-D Tomosynthesis of the breast (s) were performed. CAD was performed. COMPARISON: 10/05/2020 FINDINGS: The breast composition is composed of scattered fibroglandular density. Scattered benign calcifications are seen. No dense spiculated masses or suspicious microcalcifications are identified. No architectural distortion is identified. There is no skin thickening or retraction. There has been no significant change since the prior study. BI/SCRN MAMM (CAD)W/SUPA BILAT IMPRESSION: No mammographic signs of malignancy. Routine yearly mammograms recommended. ASSESSMENT CATEGORY: BIRADS Category 1: Negative. A letter regarding these results will be sent to the patient by the facility within 30 days. FOLLOW UP RECOMMENDATION: Yearly follow up mammogram recommended. (A) Approximately 10% of breast cancers are not detected by mammography. A normal mammogram should not delay biopsy of a clinically suspicious abnormality. Electronically Signed: Arnel Patterson MD at 16:57 EDT ,
== END 2022-02-04 23:59 | disposition home or self-care (01) ==
LOC: OPBI 15:57
PROVIDERS: PCP Family Medicine; Referring Provider Family Medicine; Visit Provider Family Medicine
DX: Z12.31 Encounter for screening mammogram for malignant neoplasm of breast (principal)
CPT/HCPCS: 77063; 77067

== ENCOUNTER 2022-02-20 14:14 | Outpatient (CLI) | payer MEDICAID, SELFPAY | END 2022-02-20 23:59 | disposition home or self-care (01) | PROVIDERS: PCP Family Medicine; Visit Provider Obstetrics & Gynecology | DX: Z00.00 Encounter for general adult medical examination without abnormal findings (principal) ==

== ENCOUNTER 2022-02-25 07:57 | Outpatient (CLI) | payer MEDICAID, SELFPAY ==
--- NOTE | 2022-02-25 07:57 | EKG12_ITS ---
Test Reason : PRE OP Blood Pressure : / mmHG Vent. Rate : 068 BPM Atrial Rate : 068 BPM P-R Int : 168 ms QRS Dur : 086 ms QT Int : 388 ms P-R-T Axes : 067 084 068 degrees QTc Int : 412 ms Normal sinus rhythm Normal ECG Confirmed by DORY HARPER, DINO ([id number]), society editor LIBERTY PONCE ([id number]) on 02/26/2022 11:23:22 AM Referred By: Crow Clements Confirmed By:DINO CONNORS MD
--- NOTE | 2022-02-25 07:57 | ECHOD_ITS ---
Reason For Study: MURMUR Procedure This was a 2D Doppler, Color Flow transthoracic echocardiogram. Exam performed in department. Left Ventricle Normal LV size. Left ventricular systolic function is normal. The estimated ejection fraction is 55 %. No regional wall motion abnormalities noted. Right Ventricle Normal RV size. Normal systolic function. Atria The left atrium is mildly enlarged. Normal right atrium. Mitral Valve Normal mitral valve. Tricuspid Valve Normal tricuspid valve. Mild (1+) tricuspid valve insufficiency. Pulmonary artery systolic pressure is 26 mmHg. Aortic Valve Trisinus/trileaflet aortic valve. Mild focal aortic valve calcification. Pulmonic Valve Normal pulmonic valve. Great Vessels Normal aortic root. The pulmonary artery is normal size. Normal inferior vena cava. Pericardium/Pleural No pericardial effusion. MMode/2D Measurements & Calculations LVIDd: 4.2 cm IVSd: 1.00 cm Ao root diam: 2.9 cm LVIDs: 2.9 cm LVPWd: 1.0 cm RVDd: 3.1 cm FS: 32.0 % LAV(MOD-bp): 69.7 ml LA A4 area: 21.0 cm2 LA dimension(2D): 4.1 cm LAV(MOD-bp) Indexed: 39.6 ml/m2 LAV(MOD-sp2): 65.2 ml LAV(MOD-sp4): 71.3 ml RA A4 area: 12.2 cm2 Time Measurements MV dec time: 0.19 sec Doppler Measurements & Calculations MV E max wilberto: 88.1 cm/sec Lat Peak E' Wilberto: 9.5 cm/sec Med Peak E' Wilberto: 5.1 cm/sec MV A max wilberto: 79.9 cm/sec E/E' lat: 9.3 E/E' med: 17.3 MV E/A: 1.1 Ao V2 max: 157.8 cm/sec LV V1 max: 98.4 cm/sec PA V2 max: 102.1 cm/sec Ao max P.0 mmHg LV V1 max P.9 mmHg TR max wilberto: 244.2 cm/sec TR max P.8 mmHg ECHO/Echo Complete Interpretation Summary Normal LV size. Left ventricular systolic function is normal. The estimated ejection fraction is 55 %. Mild focal aortic valve calcification. Pulmonary artery systolic pressure is 26 mmHg. Ordering Physician: Crow Clements Referring Physician: Fortunato Avery Performed By: Aleksandra Mello RDCS, RVT
--- NOTE | 2022-02-25 08:50 | RAD_ITS ---
STUDY: X-RAY CHEST REASON FOR EXAM: Female, 51 years old. Preoperative evaluation. No chest complaints. TECHNIQUE: PA and lateral views of the chest. COMPARISON: None. FINDINGS: There is hyperinflation of the lungs consistent with chronic obstructive lung disease (COPD). There is no demonstrated pleural abnormality. Normal size heart. Normal mediastinum and ajith. Normal visualized pulmonary arteries. Normal visualized aortic arch and descending thoracic aorta. Normal visualized thoracic spine. Normal visualized ribs, clavicles, and shoulders. There is no demonstrated abnormality of the visualized soft tissue structures of the upper abdomen. RAD/Chest PA and Lateral IMPRESSION: Hyperinflation. The lungs are clear. Electronically Signed: Jb Tuttle MD at 15:45 EDT ,
[2022-02-25 09:22] LABS: Absolute Lymphocyte Count 3.74 X10^3/uL (0.83-4.51); Absolute Neutrophil Count 5.8 X10^3/uL (2.0-7.7); Basophil# 0.03 X10^3/uL; Basophil% 0.3 % (0-1); Eosinophil# 0.22 X10^3/uL; Eosinophils% 2.2 % (0-5); Hematocrit 46.4 % (37-47); Hemoglobin 15.5 g/dL (12.0-15.0); Lymphocyte # 3.74 X10^3/ul (0.83-4.51); Lymphocyte % 36.8 % (19-41); Mean Corp Hgb Conc 33.4 g/dL (32-36); Mean Corpuscular Hgb 30.8 pg (27.0-32.0); Mean Corpuscular Volume 92.2 fL (81-99); Mean Platelet Vol. 10.9 fl (6.2-12.0); Monocyte# 0.38 X10^3/uL; Monocyte% 3.7 % (0-10); NRBC Flagged by Analyzer 0 % (0-5); Neutrophil # 5.77 X10^3/uL (2.7-7.7); Neutrophil % 56.8 % (47-70); Platelet Count 211 K/mm3 (150-450); RBC Distribution Width CV 13.1 % (11.6-14.6); Red Blood Count 5.03 M/mm3 (4.2-5.4); White Blood Count 10.2 K/mm3 (4.4-11.0)
[2022-02-25 09:58] LABS: ALB/GLOB Ratio 1.3 RATIO (0.9-2.4); AST(SGOT) 25 U/L (15-37); Alanine Aminotransfer ALT/SGPT 44 U/L (13-56); Albumin, Serum 3.9 g/dL (3.2-5.0); Alkaline Phosphatase 67 U/L (45-117); Anion Gap 1 (5-15); BUN 18 mg/dL (7-18); BUN/Creat Ratio 20.3 RATIO (10-20); Calcium,Total 9.4 mg/dL (8.5-10.1); Chloride 107 mmol/L (98-107); Creatinine, Serum 0.89 mg/dL (0.55-1.02); EST Glomerular Filtration Rate 71 mL/min (>60); Est Glom Filt Rate - Afr Amer 86 mL/min (>60); Globulin 2.9 g/dL (2.2-4.2); Glucose 158 mg/dL (74-106); Hemoglobin A1c 7.5 % (3.8-5.6); Potassium 4.3 mmol/L (3.5-5.1); Protein, Total 6.8 g/dL (6.4-8.2); Sodium Level 140 mmol/L (136-145); Thyroid Stim Hormone (TSH) 2.22 uIU/mL (0.358-3.74)
== END 2022-02-25 23:59 | disposition home or self-care (01) ==
PROVIDERS: PCP Family Medicine; Referring Provider Nurse Practitioner Family; Visit Provider Nurse Practitioner Family
DX: Z01.818 Encounter for other preprocedural examination (principal); Z01.810 Encounter for preprocedural cardiovascular examination; R01.1 Cardiac murmur, unspecified
CPT/HCPCS: 36415; 71046; 80053; 83036; 84443; 85025; 93005; 93306

== ENCOUNTER → 2022-07-23 | Outpatient (CLI) | payer MEDICAID, SELFPAY ==
[2022-07-23 12:17] LABS: Cholesterol 107 mg/dL (200); High Density Lipoprotein 36 mg/dL; Triglycerides 112 mg/dL; Very Low Density Lipoprotein 22 mg/dL (5-40)
[2022-07-23 12:25] LABS: Microalbumin,Random Urine 13.5 mg/L (NO RANGE EST.); Microalbumin:Creatinine Ratio 16.5 mg/g CRE (<30 mg/g CRE)
== END | disposition home or self-care (01) ==
LOC: BIMLAB 09:03
PROVIDERS: PCP Family Medicine; Referring Provider Nurse Practitioner Family; Visit Provider Nurse Practitioner Family
DX: E78.2 Mixed hyperlipidemia (principal)
CPT/HCPCS: 36415; 80061; 82043; 82570

== ENCOUNTER → 2022-10-12 | Outpatient (CLI) | payer MEDICAID, SELFPAY | END | disposition home or self-care (01) | LOC: BIMLAB 10:25 | PROVIDERS: PCP Family Medicine; Visit Provider Family Medicine | DX: J40 Bronchitis, not specified as acute or chronic (principal); Z20.822 Contact with and (suspected) exposure to COVID-19 | CPT/HCPCS: 87635; 87632; U0003; U0005 ==

== ENCOUNTER 2023-03-02 13:24 | Emergency (ER) | payer MEDICAID, SELFPAY ==
[2023-03-02 13:25] VITALS: BP 189/89; PULSE 86; RESP 18; TEMP 36.6; O2SAT 98; BMI 25.3
--- NOTE | 2023-03-02 13:31 | EX.ED.DYSGE1 ---
HPI History of Present Illness Chief Complaint: Hypertension Detail of Chief Complaint: Hypertension, headache, blurred vision Narrative Narrative: Patient is a 52-year-old female who is presenting to the ER today with chief complaint of headache, blurred vision, and also hypertension. Patient has longstanding history of hypertension. Patient just had a blood pressure medication increased last week, she is on valsartan, medication was increased from 160 mg to 320 mg. Patient takes atenolol as well, she has not had increase in atenolol. Patient does not have a history of headaches or migraines. Patient states that she has pressure to bilateral frontal area, patient has no neck pain. She has no chest pain, chest tightness, mild shortness of breath yesterday, she is a smoker. Patient smokes 1 pack of cigarettes a day. Patient did travel to [place] last , she only traveled 2 hours. Patient has chronic swelling to the right foot from previous foot surgery 1 year ago. Patient called her PCP today, and the PCP told her to come to the ER for her elevated blood pressure. Patient was seen by her measurement technician and PCP Dr. Avery last week. Patient does wear glasses, patient states has been having blurred vision for the past 2 months, she has no appointment set up with ophthalmology at this time. Patient looks very well, she is in the ER today because her PCP told her to come to the ER because of elevated blood pressure. Patient blood pressure at triage was in the 180s over 90s [facility] Medical History Asthma Diabetes Hypertension Limb weakness neck/back pain Preoperative clearance r elbow surgery Shoulder pain Skin cancer Tobacco abuse Home Medications ascorbic acid (vitamin C) 500 mg tablet,extended release 500 mg PO DAILY 01/28/18 [History Last Taken Unknown] cholecalciferol (vitamin D3) 50 mcg (2,000 unit) capsule 2,000 unit PO DAILY 01/28/18 [History Last Taken Unknown] mccycosbggdf-Iw-cypz-minerals 1 ea PO DAILY 01/28/18 [History Last Taken Unknown] omega-3 fatty acids-fish oil 340 mg-1,000 mg capsule 1 ea PO DAILY 01/28/18 [History Last Taken Unknown] vitamin B complex (B Complex-Vitamin B12 tablet) 1 tab PO QDAY 03/23/18 [History Last Taken Unknown] metformin 500 mg 24 hr tablet,extended release 1,000 mg PO BID #180 tabs 12/08/21 [Rx Last Taken Unknown] atenolol 50 mg tablet 50 mg PO BID #60 tabs 01/07/22 [Rx Last Taken Unknown] albuterol sulfate 90 mcg/actuation aerosol inhaler See Rx Instructions .Route .COMPLEX PRN 09/02/22 [History Last Taken Unknown] albuterol sulfate 90 mcg/actuation aerosol inhaler 2 puff inhalation Q6H PRN shortness of breath or wheezing #6.7 grams 09/20/22 [Rx Last Taken Unknown] cetirizine 10 mg capsule 10 mg PO DAILY #30 caps 10/12/22 [Rx Last Taken Unknown] glimepiride 4 mg tablet 4 mg PO BID #180 tabs 10/12/22 [Rx Last Taken Unknown] FreeStyle Marybeth 14 Day Sensor (flash glucose sensor) #2 ea 02/22/23 [Rx Last Taken Unknown] semaglutide 0.25 mg or 0.5 mg (2 mg/3 mL) subcutaneous pen injector (Ozempic) 0.25 mg (0.4 mL) subcut QWEEK #3 mL 02/22/23 [Rx Last Taken Unknown] valsartan 320 mg tablet 320 mg PO DAILY #90 tabs 02/22/23 [Rx Last Taken Unknown] zinc gluconate 50 mg tablet 50 mg PO DAILY 02/22/23 [History Last Taken Unknown] acyclovir 400 mg tablet 400 mg PO TID #90 tabs 02/24/23 [Rx Last Taken Unknown] acyclovir 5 % topical ointment 1 applic topical 6XD PRN cold sores #5 grams 02/24/23 [Rx Last Taken Unknown] fluconazole 100 mg tablet 100 mg PO DAILY #3 tabs 02/24/23 [Rx Last Taken Unknown] meloxicam 15 mg tablet 15 mg PO DAILY #90 tabs 02/24/23 [Rx Last Taken Unknown] Allergy/AdvReac Type Severity Reaction Status Date / Time choline fenofibrate Allergy Severe Itching Verified 03/02/23 13:27 [From Trilipix] Glfieid-UJB-GzP Reductase Allergy Unknown Itching Verified 03/02/23 13:27 Inhibitor [Pkdwpss-Rcs-Pjj Reductase Inhibitor] fenofibrate Allergy Itching Verified 03/02/23 13:27 Iodinated Contrast Media Allergy Itching Verified 03/02/23 13:27 [Iodinated Contrast- Oral and IV Dye] omeprazole [From Prilosec] Allergy Itching Verified 03/02/23 13:27 ranitidine Allergy Itching Verified 03/02/23 13:27 acetaminophen [From Percocet] AdvReac Intermediate Other Verified 03/02/23 13:27 oxycodone [From Percocet] AdvReac Intermediate Other Verified 03/02/23 13:27 ULISES Inhibitors AdvReac Other Verified 03/02/23 13:27 erythromycin base AdvReac Upset Verified 03/02/23 13:27 Stomach Family History Mother Hypertension Diabetes Father Hypertension Diabetes COPD (chronic obstructive pulmonary disease) Brother Hypertension Brother Hypertension Surgical History biopsy of uterus H/O: hysterectomy History of bunionectomy History of carpal tunnel release History of section History of shoulder surgery History of tonsillectomy History of tubal ligation Social History Smoking Status: Current every day smoker tobacco type: cigarettes alcohol intake: current alcohol intake frequency: holidays/special occasions only substance use type: does not use what type of physical activity do you participate in: other details: [employer] frequency: 1-2 times per week ROS ROS ED ROS Narrative REVIEW OF SYSTEMS: Unless otherwise stated in this report the patient's positive and negative responses for review of systems for constitutional, eyes, ENT, cardiovascular, respiratory, gastrointestinal, neurological, , musculoskeletal, and integument systems and related systems to the presenting problem are either stated in the history of present illness or were not pertinent or were negative for the symptoms and/or complaints related to the presenting medical problem. EXAM Physical Exam Narrative Exam Narrative: Vital signs reviewed and patient is not hypoxic. General: The patient appears well and in no apparent distress. Patient is resting comfortably on cart. Not toxic, lethargic, or listless. Skin: Warm, dry, no pallor noted. There is no rash noted. Head: Normocephalic, atraumatic, patient has minimal tenderness palpation of bilateral frontal sinus, no tenderness to palpation the maxillary sinus. Patient has mild tenderness to palpation to the right upper trapezius muscle, full range of motion cervical spine no difficulty. No meningeal signs or symptoms. Eye: Normal conjunctiva, no drainage, EOMI. PERRL. Ears, Nose, Mouth, and Throat: oral mucosa is moist. Nares patent. Mouth without vesicles. Ear canals patent. Cardiovascular: Regular Rate and Rhythm, no murmurs, gallops, or rubs Respiratory: Patient is in no distress, no accessory muscle use, lungs are clear to auscultation, no wheezing, rales or rhonchi Back: non-tender, no CVA tenderness bilaterally to percussion. NO CTLS midline or paracervical tenderness to palpation. GI: Soft, no tenderness to palpation, no masses appreciated. No rebound, guarding, or rigidity noted. Musculoskeletal: The patient has full range of motion of all extremities and joints with no difficulty. Patient has no motor, no sensory deficits. Minimal chronic swelling to dorsal aspect of the right foot. Neurological: A&O x4, normal speech, no focal neurological deficits. Psychiatric: Cooperative Const Vital Signs: 03/02/23 13:25 03/02/23 13:36 03/02/23 13:50 Temperature 97.8 F Temperature Source Temporal Pulse Rate 86 Respiratory Rate 18 Respiratory Effort Normal Blood Pressure 189/89 H Blood Pressure Mean 122 Pulse Ox 98 96 Oxygen Delivery Method Room Air Room Air 03/02/23 13:51 03/02/23 15:46 Temperature Temperature Source Pulse Rate 69 64 Respiratory Rate 14 14 Respiratory Effort Blood Pressure 162/70 H 152/69 H Blood Pressure Mean 100 96 Pulse Ox 96 96 Oxygen Delivery Method Room Air Room Air [facility] Lab Data Attestation: I reviewed the patient's lab results. Labs: Laboratory Results - last 24 hr 03/02/23 03/02/23 03/02/23 13:55 13:55 13:55 WBC 9.0 RBC 4.75 Hgb 14.9 Hct 44.8 MCV 94.3 MCH 31.4 MCHC 33.3 RDW Std Deviation 46.9 H RDW Coeff of Guadalupe 13.5 Plt Count 231 MPV 10.7 Immature Gran % (Auto) 0.300 Neut % (Auto) 50.4 Lymph % (Auto) 40.5 Sierra % (Auto) 5.1 Eos % (Auto) 3.0 Baso % (Auto) 0.7 Absolute Neuts (auto) 4.5 Absolute Lymphs (auto) 3.65 Nucleated RBC % 0 Sodium 137 Potassium 4.3 Chloride 107 Carbon Dioxide 29.0 Anion Gap 1 L BUN 20 H Creatinine 1.04 H Estim Creat Clear Calc 60.83 Est GFR (MDRD) Af Amer 71 Est GFR (MDRD) Non-Af 59 L BUN/Creatinine Ratio 19.2 Glucose 210 H Calcium 8.9 Magnesium 1.5 L Troponin I High Sens 6 B-Natriuretic Peptide 87.6 Radiography Diagnostic Testing: Clinical Impression(s) from Imaging Studies Brain CT 03/02/23 13:44 IMPRESSION: Normal unenhanced CT scan of the brain. Electronically Signed: Mt Burton MD at 14:26 EDT , Chest X-Ray 03/02/23 13:44 IMPRESSION: Normal x-ray examination of the chest. Electronically Signed: Mt Burton MD at 14:32 EDT , EKG Initial EKG: Attestation: I personally reviewed and interpreted this EKG as follows: Comments: Patient EKG interpretation. Normal sinus rhythm at 64 beats a minute. Normal axis deviation. No acute ST elevation, no acute ectopy. QTc of 400. When compared EKG on February 25, 2022, no acute changes on today's EKG Treatment and Re-Evaluation Comments:: Patient's visual acuity is within normal limits. Patient is left eye is 20/20, right eye is 20/25, both eyes is 20/15. CT of the brain showed no acute abnormality. Chest x-ray shows no acute cardiopulmonary disease, no infiltrate, no effusion. Patient's lab work shows no other acute findings. I did speak to patient's PCP, Dr. Avery. He is currently out of town. He stated the patient could call the office tomorrow in follow-up. Continue taking medication as prescribed. Patient just had a increase in her Volsarten last week, she is currently taking 320 mg a day. Patient will continue this, follow-up with PCP. Tylenol did not help with her headache, she was given 1 dose of Toradol and a Fioricet. Patient will follow-up with PCP for additional help with headache if needed, along with blood pressure. Patient headache has improved at disposition. Patient blood pressure has improved as well with no medication given antihypertensive. Questions were answered. Patient will call and follow-up with Dr. Avery in the office in the next several days. Discharge Plan Triage Chief Complaint: Hypertension ED Provider: Marlon Wilder Dx/Rx/DC Orders Clinical Impression: Headache, Vision changes, Hypertension Instructions: Self-Care for Headaches, ED Blurred Vision, ED Hypertension, Established Prescriptions: No Action vitamin B complex [B Complex-Vitamin B12] tablet 1 tab PO QDAY atenolol 50 mg tablet 50 mg PO BID Qty: 60 12RF Rx Instructions: TAKE 1 TABLET BY MOUTH TWICE DAILY Ozempic 0.25 mg or 0.5 mg (2 mg/3 mL) pen injector 0.25 mg subcut QWEEK Qty: 3 3RF Rx Instructions: for 4 weeks (DME) [employer] 14 Day Sensor Kit See Rx Instructions .ROUTE .MEDSUPPLY Qty: 2 8RF Rx Instructions: As directed with reader change every 14 days albuterol sulfate 90 mcg/actuation HFA aerosol inhaler See Rx Instructions .ROUTE .COMPLEX PRN Dose Instruction: INHALE 1 TO 2 PUFFS BY MOUTH EVERY 6 HOURS NEEDED FOR SHORTNESS OF BREATH OR WHEEZING Rx Instructions: INHALE 1 TO 2 PUFFS BY MOUTH EVERY 6 HOURS NEEDED FOR SHORTNESS OF BREATH OR WHEEZING PRN; albuterol sulfate 90 mcg/actuation HFA aerosol inhaler 2 puff inhalation Q6H PRN (Reason: shortness of breath or wheezing) Qty: 6.7 0RF cetirizine 10 mg capsule 10 mg PO DAILY Qty: 30 12RF acyclovir 5 % ointment 1 applic topical 6XD PRN (Reason: cold sores) Qty: 5 2RF meloxicam 15 mg tablet 15 mg PO DAILY Qty: 90 1RF acyclovir 400 mg tablet 400 mg PO TID Qty: 90 3RF fluconazole 100 mg tablet 100 mg PO DAILY Qty: 3 4RF zinc gluconate 50 mg tablet 50 mg PO DAILY valsartan 320 mg tablet 320 mg PO DAILY Qty: 90 3RF ascorbic acid (vitamin C) 500 MG tablet extended release 500 mg PO DAILY rotkilssdfpc-Ra-drdr-minerals 1 EACH tablet 1 ea PO DAILY omega-3 fatty acids-fish oil 1 EACH capsule 1 ea PO DAILY cholecalciferol (vitamin D3) 2,000 UNIT capsule 2,000 unit PO DAILY metformin 500 mg tablet,ER gianluca.retention 24 hr 1,000 mg PO BID Qty: 180 6RF Rx Instructions: 2 tab am & 2 tabs hs PO glimepiride 4 mg tablet 4 mg PO BID Qty: 180 1RF Rx Instructions: with meals Primary Care Provider: Fortunato Avery Referrals: Fortunato Avery, DO [Primary Care Provider] - Activity Restrictions/Additional Instructions: Call your eye physician today as discussed to establish another eye exam secondary to 2-month history of blurred vision. Call your PCP today as well to make a follow-up appointment. Continue taking medication as prescribed, follow-up with PCP. CT of the brain was read as negative, no acute findings Disposition Disposition: Home, Self Care
--- NOTE | 2023-03-02 13:44 | CT_ITS ---
STUDY: CT BRAIN WITHOUT CONTRAST REASON FOR EXAM: Female, 52 years old. Headache RADIATION DOSAGE (If Supplied By Facility): CTDIvol = ( 44.99 ) mGy, DLP = ( 829.85 ) mGycm TECHNIQUE: Transaxial CT imaging of the brain was performed without administration of intravenous contrast material. Individualized dose optimization techniques were used for this CT. COMPARISON: No relevant priors. FINDINGS: Normal soft tissue structures. Normal calvarium. Normal size ventricles and extra-axial spaces for the patient''s age. Normal white matter tracts of the cerebral hemispheres. Normal basal ganglia and thalami. Normal brainstem. Normal cerebellum. There is no intracranial hemorrhage. There are no findings of an acute ischemic infarction. Normal visualized paranasal sinuses. CT/Brain/Head without Contrast IMPRESSION: Normal unenhanced CT scan of the brain. Electronically Signed: Mt Burton MD at 14:26 EDT ,
--- NOTE | 2023-03-02 13:44 | RAD_ITS ---
STUDY: X-RAY CHEST REASON FOR EXAM: Female, 52 years old. chest pain TECHNIQUE: Single AP portable view of the chest. COMPARISON: 02/25/2022 FINDINGS: EKG leads overlie the chest The lungs are clear and expanded. There is no demonstrated pleural abnormality. Normal size heart. Normal mediastinum and ajith. Normal visualized pulmonary arteries. Normal visualized aortic arch and descending thoracic aorta. Normal visualized thoracic spine. Normal visualized ribs, clavicles, and shoulders. There is no demonstrated abnormality of the visualized soft tissue structures of the upper abdomen. RAD/Chest 1 View (Portable) IMPRESSION: Normal x-ray examination of the chest. Electronically Signed: Mt Burton MD at 14:32 EDT ,
[2023-03-02 13:50] VITALS: O2SAT 96
[2023-03-02 13:51] VITALS: BP 162/70; PULSE 69; RESP 14; O2SAT 96
[2023-03-02] MEDS: Acetaminophen 325 MG Tablet 650 MG PO (14:07)
[2023-03-02 14:14] LABS: Absolute Lymphocyte Count 3.65 X10^3/uL (0.83-4.51); Absolute Neutrophil Count 4.5 X10^3/uL (2.0-7.7); Basophil# 0.06 X10^3/uL; Basophil% 0.7 % (0-1); Eosinophil# 0.27 X10^3/uL; Hematocrit 44.8 % (37-47); Hemoglobin 14.9 g/dL (12.0-15.0); Lymphocyte # 3.65 X10^3/ul (0.83-4.51); Lymphocyte % 40.5 % (19-41); Mean Corp Hgb Conc 33.3 g/dL (32-36); Mean Corpuscular Hgb 31.4 pg (27.0-32.0); Mean Corpuscular Volume 94.3 fL (81-99); Mean Platelet Vol. 10.7 fl (6.2-12.0); Monocyte# 0.46 X10^3/uL; Monocyte% 5.1 % (0-10); NRBC Flagged by Analyzer 0 % (0-5); Neutrophil # 4.54 X10^3/uL (2.7-7.7); Neutrophil % 50.4 % (47-70); Platelet Count 231 K/mm3 (150-450); RBC Distribution Width CV 13.5 % (11.6-14.6); RBC Distribution Width SD 46.9 fl (35.1-43.9); Red Blood Count 4.75 M/mm3 (4.2-5.4)
[2023-03-02 14:22] LABS: Anion Gap 1 (5-15); BUN 20 mg/dL (7-18); BUN/Creat Ratio 19.2 RATIO (10-20); Calcium,Total 8.9 mg/dL (8.5-10.1); Chloride 107 mmol/L (98-107); Creatinine, Serum 1.04 mg/dL (0.55-1.02); EST Glomerular Filtration Rate 59 mL/min (>60); Est Glom Filt Rate - Afr Amer 71 mL/min (>60); Estimated Creatinine Clearance 60.83 ml/min; Glucose 210 mg/dL (74-106); Magnesium 1.5 mg/dL (1.6-2.6); Potassium 4.3 mmol/L (3.5-5.1); Sodium Level 137 mmol/L (136-145); Troponin-I HS (w/2H Reflex) 6 pg/mL (3.0-54.0)
[2023-03-02 14:56] LABS: BNP,B-Type NATRIURETIC PEPTIDE 87.6 pg/mL (0-100)
[2023-03-02] MEDS: Ketorolac 15 MG/ML Vial IV (15:33)
[2023-03-02 15:46] VITALS: BP 152/69; PULSE 64; RESP 14; O2SAT 96
[2023-03-02 16:02] LABS: Reflex Troponin-HS? (from REC) Y
[2023-03-02 16:17] VITALS: BP 165/81; PULSE 65; RESP 16; O2SAT 92
[2023-03-02 16:57] LABS: Troponin-I HS 7 pg/mL (3.0-54.0)
[2023-03-02 17:03] VITALS: BP 169/76; PULSE 65; RESP 16; O2SAT 94
[2023-03-02] MEDS: Acetaminophen/Butalbital/Caffe 1 Tablet PO (17:06)
== END 2023-03-02 17:11 | disposition home or self-care (01) ==
PROVIDERS: Emergency Provider Emergency Medicine; PCP Family Medicine; Visit Provider Emergency Medicine
DX: R51.9 Headache, unspecified (principal); I10 Essential (primary) hypertension; F17.210 Nicotine dependence, cigarettes, uncomplicated; R06.02 Shortness of breath
CPT/HCPCS: 70450; 71045; 80048; 83735; 83880; 84484; 85025; 93005; 96374; 99285; A4216

== ENCOUNTER → 2023-09-15 | Outpatient (CLI) | payer MEDICAID, SELFPAY ==
--- NOTE | 2023-09-15 13:23 | CT_ITS ---
EXAM: CT RIGHT LOWER EXTREMITY WITHOUT INTRAVENOUS CONTRAST CLINICAL INDICATION: Hallux valgus (acquired), right foot TECHNIQUE: Helically acquired images were obtained of the right lower extremity without intravenous contrast. 2-D reformats were performed by the technologist. CTDIvol = ( 15.35 ) mGy, DLP = ( 427.90 ) mGycm This CT exam was performed using one or more of the following dose reduction techniques: automated exposure control, adjustment of the mA and/or kV according to patient size, and/or use of iterative reconstruction technique. COMPARISON: No relevant prior studies available. FINDINGS: BONES/JOINTS: Hallux valgus deformity with at least mild degenerative changes at the first metatarsophalangeal joint. Ankle mortise is intact. Incompletely healed fracture involving the medial cuneiform. Erosive changes are seen at the first tarsometatarsal articulation which is traversed by a cannulated screw with no significant significant ankylosis identified across this articulation. Additional multiscrew fixation construct identified along the dorsal/medial aspect of the first tarsometatarsal articulation with no screw fractures identified. SOFT TISSUES: Unremarkable. No soft tissue swelling or gas. No radiopaque foreign body. No soft tissue masses or fluid collections. CT/Extremity Lower without Contra IMPRESSION: Incompletely healed fracture involving the medial cuneiform. Erosive changes are seen at the first tarsometatarsal articulation which is traversed by a cannulated screw with no significant significant ankylosis identified across this articulation. Additional multiscrew fixation construct identified along the dorsal/medial aspect of the first tarsometatarsal articulation with no screw fractures identified. Electronically Signed: Vidal Monte MD at 0:05 EDT ,
== END | disposition home or self-care (01) ==
PROVIDERS: PCP Family Medicine; Referring Provider Student in an Organized Health Care Education/Training Program; Visit Provider Student in an Organized Health Care Education/Training Program
DX: M20.11 Hallux valgus (acquired), right foot (principal)
CPT/HCPCS: 73700

== ENCOUNTER → 2023-09-29 | Outpatient (CLI) | payer MEDICAID, SELFPAY ==
[2023-09-29 16:34] LABS: Absolute Lymphocyte Count 4.23 X10^3/uL (0.83-4.51); Absolute Neutrophil Count 5.3 X10^3/uL (2.0-7.7); Basophil# 0.05 X10^3/uL; Basophil% 0.5 % (0-1); Eosinophil# 0.15 X10^3/uL; Eosinophils% 1.4 % (0-5); Hematocrit 42.3 % (37-47); Hemoglobin 14.1 g/dL (12.0-15.0); Lymphocyte # 4.23 X10^3/ul (0.83-4.51); Lymphocyte % 40.8 % (19-41); Mean Corp Hgb Conc 33.3 g/dL (32-36); Mean Corpuscular Hgb 31.1 pg (27.0-32.0); Mean Corpuscular Volume 93.4 fL (81-99); Mean Platelet Vol. 11.1 fl (6.2-12.0); Monocyte# 0.62 X10^3/uL; NRBC Flagged by Analyzer 0 % (0-5); Platelet Count 279 K/mm3 (150-450); RBC Distribution Width CV 13.2 % (11.6-14.6); Red Blood Count 4.53 M/mm3 (4.2-5.4); White Blood Count 10.4 K/mm3 (4.4-11.0)
[2023-09-29 16:48] LABS: ALB/GLOB Ratio 1.1 RATIO (0.9-2.4); AST(SGOT) 10 U/L (15-37); Alanine Aminotransfer ALT/SGPT 16 U/L (13-56); Albumin, Serum 3.6 g/dL (3.2-5.0); Alkaline Phosphatase 79 U/L (45-117); Anion Gap 4 (5-15); BUN 24 mg/dL (7-18); Calcium,Total 9.5 mg/dL (8.5-10.1); Chloride 110 mmol/L (98-107); EST Glomerular Filtration Rate 61 mL/min (>60); Est Glom Filt Rate - Afr Amer 74 mL/min (>60); Globulin 3.4 g/dL (2.2-4.2); Glucose 104 mg/dL (74-106); Potassium 4.6 mmol/L (3.5-5.1); Sodium Level 143 mmol/L (136-145)
[2023-09-29 16:55] LABS: Cholesterol 242 mg/dL (200); High Density Lipoprotein 38 mg/dL; Thyroid Stim Hormone (TSH) 1.62 uIU/mL (0.358-3.74); Triglycerides 261 mg/dL; Very Low Density Lipoprotein 52 mg/dL (5-40)
[2023-09-29 17:00] LABS: Microalbumin,Random Urine 37.3 mg/L (NO RANGE EST.); Microalbumin:Creatinine Ratio 14.4 mg/g CRE (<30 mg/g CRE)
[2023-10-07 14:09] LABS: Cotinine Screen Blood 338.9 ng/mL (.); Nicotine Blood 33.2 ng/mL (.)
== END | disposition home or self-care (01) ==
LOC: BIMLAB 15:02
PROVIDERS: Nurse Practitioner Family; PCP Family Medicine; Referring Provider Family Medicine; Visit Provider Family Medicine
DX: Z01.810 Encounter for preprocedural cardiovascular examination (principal); E11.22 Type 2 diabetes mellitus with diabetic chronic kidney disease; N18.30 Chronic kidney disease, stage 3 unspecified; I12.9 Hypertensive chronic kidney disease with stage 1 through stage 4 chronic kidney disease, or unspecified chronic kidney disease
CPT/HCPCS: 36415; 80053; 80061; 80323; 82043; 82570; 84443; 85025; G0480

== ENCOUNTER 2023-10-15 08:18 | Day surgery (SDC) | payer MEDICAID, SELFPAY ==
--- NOTE | 2023-10-07 12:25 | EKG12_ITS ---
Test Reason : PRE OP Blood Pressure : / mmHG Vent. Rate : 106 BPM Atrial Rate : 106 BPM P-R Int : 154 ms QRS Dur : 084 ms QT Int : 344 ms P-R-T Axes : 082 083 076 degrees QTc Int : 456 ms Sinus tachycardia Nonspecific T wave abnormality Abnormal ECG Confirmed by JAMMIE HARPER, TYRONE ([id number]), editor dictionary AMY YOUNGBLOOD ([id number]) on 10/13/2023 12:18:05 PM Referred By: Rafi Mueller Confirmed By:TYRONE AGUDELO MD
--- NOTE | 2023-10-07 12:34 | RAD_ITS ---
INDICATION: PREOP EXAMINATION/TECHNIQUE: X-RAY - XR Chest 2 Views COMPARISON: Prior study dated: 03/02/2023. FINDINGS: LINES/DEVICES: None. LUNGS: No consolidation, edema or effusion. No pneumothorax. MEDIASTINUM AND CARDIOVASCULAR STRUCTURES: Cardiac silhouette not enlarged. Central airways and mediastinal contour are unremarkable. BONES AND SOFT TISSUES: Unremarkable. RAD/Chest PA and Lateral IMPRESSION: No radiographic evidence of acute cardiopulmonary disease. Electronically Signed: Madhav Batista MD at 8:08 EST ,
[2023-10-15] VITALS (8 sets, daily range): BP systolic 141–162; BP diastolic 74–96; PULSE 78–92; RESP 14–18; TEMP 36.3–37.1; O2SAT 91–97; BMI 25.4
[2023-10-15] MEDS: Lactated Ringers 1,000 ML 15 ML IV (08:47)
--- NOTE | 2023-10-15 10:09 | RAD_ITS ---
STUDY: X-RAY - RIGHT FOOT CLINICAL: Female, 53 years old. Revision arthrodesis. TECHNIQUE: An intraoperative digital documentation view(s) of the foot. COMPARISON: None. FINDINGS: 10 intraoperative digital documentation views show plate and screw fixation of the first TMT joint and stable within the proximal phalanx of the first toe. Images acquired 47. Images a 10. Total exposure time 1 minute 37 seconds. Longest single exposure time 17 seconds. Total DAP 14.3703 cGycm2. Total Air Kerma 0.8554 mGy. RAD/Foot min 3 Views IMPRESSION: Intraoperative digital documentation views as described. Electronically Signed: Kasi Hernández MD at 14:24 EST ,
[2023-10-15] MEDS: Cefazolin 2 GM in 0.9% Normal Saline (100mL Bag) 100 ML IV (10:27)
[2023-10-15 10:30] LABS: Bedside Glucose 172 mg/dL (74-106)
--- NOTE | 2023-10-15 10:43 | DCINST_ITS ---
Discharge Instructions Diet Discharge Diet: No restrictions Activity Discharge Activity: May Not Drive, May Shower (Please utilize cast bag cover to keep dressings clean, dry, and intact to the right foot. She is to shower nonweightbearing seated on shower chair) and Use Walker (Please remain nonweightbearing to the right lower extremity with assistance of knee scooter/walker/crutches) Weight Bearing Status: No weight bearing (Please remain nonweightbearing to the right lower extremity with assistance of crutches/walker/knee scooter) Keep extremity elevated above heart level: Right Leg (Elevate right lower extremity at all times rest for postoperative edema control) Dressing / Incision Call your doctor if you observe: Fever of 101 or Higher, Shortness of breath, Chest pain, Calf discomfort and Uncontrolled pain Change Dressing in: do not change dressing Remove Dressing in: leave in place till F/U (Physician will change dressing at first postoperative appointment. Leave dressing clean, dry, intact.) Cleanse incision/area with: Do not get Incision Wet (Do not get wet. Use cast bag covering when showering.) and Keep Dressing Clean & Dry (Keep dressings clean, dry, and intact to the right foot) Follow Up Care Please Follow Up With: Rafi Mueller DPM When: Patient has first postoperative appointment in office early next week Test Results: Test results from this visit will be discussed in further detail at your follow- up appointment, if applicable. Discharge Plan Admission Attending Provider: Rafi Mueller Primary Care Provider: Fortunato Avery Discharge Orders/Prescriptions Prescriptions: New aspirin 325 mg tablet 325 mg PO DAILY Qty: 20 0RF doxycycline hyclate 100 mg capsule 100 mg PO DAILY Qty: 10 0RF tramadol 50 mg tablet 50 mg PO Q8H PRN (Reason: pain) 7 Days Qty: 35 0RF No Action vitamin B complex [B Complex-Vitamin B12] tablet 1 tab PO QDAY (DME) FreeStyle Marybeth 14 Day Sensor Kit See Rx Instructions .ROUTE .MEDSUPPLY Qty: 2 8RF Rx Instructions: As directed with reader change every 14 days zinc gluconate 50 mg tablet 50 mg PO DAILY Ozempic 1 mg/dose (4 mg/3 mL) pen injector 1 mg subcut QWEEK Qty: 9 1RF fluconazole 100 mg tablet 100 mg PO QWEEK cetirizine 10 mg capsule 10 mg PO DAILY Qty: 30 12RF meloxicam 15 mg tablet 15 mg PO DAILY Qty: 90 1RF amlodipine 5 mg tablet 5 mg PO DAILY Qty: 90 2RF acyclovir 5 % ointment 1 applic topical 6XD PRN (Reason: cold sores) Qty: 5 2RF acyclovir 400 mg tablet 400 mg PO TID Qty: 90 3RF valsartan 320 mg tablet 320 mg PO DAILY Qty: 90 3RF albuterol sulfate 90 mcg/actuation HFA aerosol inhaler 2 puff inhalation Q6H PRN (Reason: shortness of breath or wheezing) Qty: 6.7 1RF bupropion HCl [Wellbutrin SR] 150 mg tablet sustained-release 12 hr 150 mg PO BID Qty: 60 3RF Rx Instructions: start daily for the first 3 days then increase to twice daily (DME) handicap placard See Rx Instructions .Route .MEDSUPPLY Qty: 1 0RF Rx Instructions: duration of one year. glimepiride 4 mg tablet 4 mg PO BID Qty: 180 1RF Rx Instructions: with meals atenolol 50 mg tablet 50 mg PO BID Qty: 180 1RF Rx Instructions: TAKE 1 TABLET BY MOUTH TWICE DAILY metformin 500 mg tablet,ER gianluca.retention 24 hr 1,000 mg PO BID Qty: 360 1RF Rx Instructions: 2 tab am & 2 tabs hs PO ascorbic acid (vitamin C) 500 MG tablet extended release 500 mg PO DAILY bipxkykgmopq-Zc-oslv-minerals 1 EACH tablet 1 ea PO DAILY omega-3 fatty acids-fish oil 1 EACH capsule 1 ea PO DAILY cholecalciferol (vitamin D3) 2,000 UNIT capsule 2,000 unit PO DAILY Referrals / Follow Up: Fortunato Avery, DO [Primary Care Provider] - Disposition Disposition (needs filled in before D/C Order can be placed): Home, Self Care
[2023-10-15] MEDS: Bupivacaine Mpf 0.5% 30 ML VIAL (13:35)
--- NOTE | 2023-10-15 14:05 | RAD_ITS ---
STUDY: X-RAY - RIGHT FOOT CLINICAL: Female, 53 years old. Postoperative Lapidus revision. TECHNIQUE: 3 view(s) of the foot. COMPARISON: None. FINDINGS: Osteopenia. Fusion of the first TMT joint with bridging Maged''s screw and medial plate and screw fixation. Osteotomy changes of hallux valgus repair in the distal first metatarsal. Staple within the proximal phalanx of first digit Soft tissue swelling at the postsurgical site. RAD/Foot min 3 Views IMPRESSION: Osteopenia with postsurgical changes as described. Electronically Signed: Kasi Hernández MD at 14:25 EST ,
--- NOTE | 2023-10-15 14:19 | OP.PCM_ITS ---
Problems Associated Problem List Diagnoses (1) Nonunion of osteotomy site: (2) Hallux valgus (acquired), right foot: (3) Exostosis of right foot: Report of Operation Date of Procedure: 10/15/23 Pre-Operative Diagnosis: 1. Nonunion Lapidus bunionectomy right foot 2. Exostosis first and second tarsometatarsal joint right foot Post-Operative Diagnosis: 1. Nonunion Lapidus bunionectomy right foot 2. Exostosis first and second tarsometatarsal joint right foot Surgery/Procedure Performed:: 1. Revision of Lapidus bunionectomy nonunion right foot 2. Dola osteotomy right hallux 3. Removal of exostosis right foot 4. EHL tendon lengthening right foot 5. Capsulotomy first MTPJ right foot Description of Surgical Findings:: See operative note for findings Surgeon: aRfi Mueller photographer apprentice lithographic: Deangelo Land DPM PGY-1 Type of Anesthesia: General and Local (30 cc one-to-one mixture 1% lidocaine plain and 0.5% Marcaine plain) Specimen's removed: [place] Medial Lapidus plate with 3.5mm screws x 5; 4.0 x 42mm Headless compression screw at 1st TMTJ Right foot Drains: None Estimated Blood Loss (mL): < 10mL Description of Procedure: HPI/Indication: This is a 53-year-old female who underwent Lapidus bunionectomy of the right foot on 03/26/2022. During postoperative period it was determined that healing was consistent with adequate fusion by serial radiograph and she did return to shoe gear without pain however did develop continuing discomfort. She was able unable to return for her 1 year appointment postoperatively due to loss of insurance but did reestablish new insurance. Upon return to office in August 2023 she did state some pain to the right foot radiographs were obtained and hardware was stable with fixation maintained. Due to continued pain a CT was ordered to evaluate for potential nonunion. She did obtain CT on 09/15/2023 demonstrating incompletely healed fracture involving the medial cuneiform with erosive changes seen at the first tarsometatarsal joint with hardware maintained without screw fracture. These results were discussed with her and upon asking if it anytime she had smoked during the postoperative period she stated yes I did but did not want to tell you at that time. I discussed with her that the continued smoking has led to a nonunion of her Lapidus arthrodesis site which would need to undergo surgical revision. I also discussed that she does need to stop smoking and not smoke during the postoperative period. She voices understanding of of this and the importance that this had on her healing status. I did discuss surgical intervention in great detail for revision of this nonunion of the first tarsometatarsal site with new surgical fixation placed, bone graft placement at the fusion site, removing the dorsal exostosis overlying the second and first tarsometatarsal joints in addition to performing an Dola osteotomy of the proximal phalanx. Discussed with her following original surgical intervention her hallux was straight however upon examination 1 year out she did have some deformity distally with hallux abutting second digit. She is in agreement with proceeding to surgical intervention for these procedures. Discussed the risks and complications of procedure. Discussed the risk include but are not limited to the following: Pain, continued pain, complex regional pain syndrome, addiction to pain medication, infection, neuritis/numbness, swelling, scarring, poor cosmetic result, delayed healing/nonhealing, dehiscence, difficulty wearing shoes, inability to wear shoes, overcorrection/under correction, digital contracture, symptomatic hardware/painful hardware, need for further surgical intervention, malunion, nonunion, allergic reaction, blood clot, stroke, heart attack, loss of function, loss of limb, loss of life. Patient voices understanding of these and was able to repeat these back. Patient wishes to proceed forward with the surgical intervention. Consent was signed freely by the patient. No promises were made. No guarantees were made. All diagnostic data was reviewed prior to entering the OR. Right lower extremity was marked prior to entering the OR. Procedure: Under mild sedation patient was brought into the operating room and placed on the table in supine position. Patient was secured to the table with safety belt. Following induction of IV anesthetic a pneumatic calf tourniquet was applied to the right lower extremity. A right hip bump was utilized via a blanket bump. Right lower extremity was elevated with a blanket bump. A local anesthetic block was then performed about the ankle consisting of 20 cc of a one-to-one mixture of 1% lidocaine plain and 0.5% Marcaine plain. Right foot was then scrubbed, prepped, and draped in the usual aseptic manner. Fluoroscopic images were obtained demonstrating prior hardware fixation of the Lapidus bunionectomy site in addition to lateral deviation of the hallux. Fluoroscopy utilized to aid in incision placement to access hardware for removal. An Esmarch bandage was utilized then to exsanguinate the right foot and the pneumatic calf tourniquet was inflated to 250 mmHg. At this time attention was directed to the first metatarsophalangeal joint/proximal phalanx where a linear incision was made utilizing a #15 blade medial to the EHL tendon. Incision was deepened through blunt and sharp dissection with care taken to identify the extensor hallucis longus tendon and retract this laterally. Next, the periosteum was reflected medial and lateral to expose the base of the proximal phalanx where under fluoroscopy a K wire was placed to guide Dola osteotomy of the proximal phalanx. Next, utilizing sagittal saw an Dola osteotomy was performed and the K wire was removed. The osteotomy site was then closed with noted correction and improved alignment of the hallux. Temporary fixation of the osteotomy site was achieved via K wire. Next, following AO principles and manufacture guideline an Arthrex nitinol staple was placed across the osteotomy site for fixation. Reduction of the osteotomy site was achieved and fixation noted to be excellent. Next, upon loading of the hallux was noted to slightly elevate and thus an EHL tendon lengthening was performed. Upon loading of the foot following tendon lengthening the digit was noted to sit flush and level. At this time to the medial aspect of the first metatarsophalangeal joint where a V-shaped capsulotomy was performed along the medial aspect of the first metatarsophalangeal joint. Sites were then flushed with copious amounts of normal sterile saline. Extensor hallucis longus tendon was repaired with 4-0 Vicryl. Medial aspect of the first metatarsophalangeal joint capsule was repaired with 4-0 Vicryl. Upon loading of the foot digital alignment was noted to be improved with rectus hallux. At this time attention was directed to the proximal portion of the foot where a separate linear incision was utilized utilizing a #15 blade overlying the first tarsometatarsal joint and extended distally to the midshaft of the first metatarsal. Incision was made medial to the EHL tendon. Incision deepened via sharp and blunt dissection. Care was taken to identify and retract all vital neurovascular structures. At this time fluoroscopy was utilized to identify the dorsal exostosis overlying the first and second tarsometatarsal joints, and this was excised utilizing sagittal saw and rongeur. A bone rasp was utilized to smooth portion of bone and following removal of the exostosis, deformity was noted to be reduced with no underlying palpable prominence. Next, utilizing fluoroscopic imaging hardware position was confirmed of the [place] 4.0 mm headless compression screw and Lapidus plate with five 3.5 millimeter screws. All hardware was removed and site flushed with copious amounts of normal sterile saline. Next, first tarsometatarsal joint was identified and opened utilizing freer and #15 blade to excise fibrous portions of the nonunion site. The first tarsometatarsal joint was then prepped via curettage, fenestrated drill, an osteotome and mallet. Following preparation of the joint there was noted to be good subchondral bleeding. Site was then packed with 5cc Arthrex ArthroCell Plus Bone Graft filling bone voids and previous fracture site at the plantar medial cuneiform. The joint was compressed with K wire derotation performed to maintain alignment of the sesamoids and following AO principles a [place] 4.0 x 42 mm headless short threaded compression screw was placed across the fusion site. At this time a [place] Lapidus plate was secured via olive wire for temporary fixation to the medial aspect of the first metatarsal and medial cuneiform. Following AO principles the proximal holes of the Lapidus plate were filled with a 3.5 x 20 mm locking screw and a 3.5 x 18 mm locking screw. Next, in the oblong hole distally a 3.5 x 18 mm nonlocking screw was placed in the hole distal to this was filled with a 3.5 x 16 mm locking screw. The plantar Lapidus plate hole was filled with a 3.5 x 20 mm locking screw. Following fixation fluoroscopic images were obtained demonstrating fixation of the Lapidus nonunion site in multiple views demonstrating excellent fixation and reduction of deformity. Site was then flushed with copious amounts of normal sterile saline. Any remaining bone voids were packed with Arthrex AthroCell Plus bone graft. The deep tissues of the proximal incision site were closed utilizing 4-0 Vicryl. Deep tissues of the distal incision site closed utilizing 4-0 Vicryl. Subcutaneous tissue of the proximal incision site closed utilizing 4-0 Monocryl. Subcutaneous tissues of the distal incision site closed utilizing 4-0 Monocryl. At this time the pneumatic calf tourniquet was deflated and a prompt hyperemic response was noted to the digits of the right foot. Skin was reapproximated of the proximal and distal incision sites utilizing 3-0 Prolene in simple interrupted fashion. A postoperative ankle block was performed utilizing 10 cc one-to-one mixture of 1% lidocaine plain and 0.5% Marcaine plain. Incision sites were dressed utilizing Betadine soaked Adaptic. Betadine soaked gauze was applied about hallux for soft splinting with 4 x 4 gauze placed between hallux and second digit. Sites then dressed with 4 x 4 gauze, Kerlix x2, Webril cast padding, 4 inch Diogo wrap, 6 inch Diogo wrap. A well-padded posterior splint was applied to the right lower extremity and anchored with a 4 inch and 6 inch Diogo wrap and modified Mathews compression fashion. The patient tolerated the anesthesia and procedure well was transported the PACU vital signs stable vascular status intact to the right foot. Postoperative imaging was obtained in PACU and reviewed prior to leaving. Patient and family did receive discharge instructions outlining postoperative care. Patient is to remain nonweightbearing to the right lower extremity utilizing knee scooter and walker/crutches. She is to elevate right lower extremity at all times of rest for postoperative edema control. She is to keep dressings clean, dry, and intact to the right lower extremity and utilize cast bag when showering. She will remain nonweightbearing on shower chair during shower. Again discussion with family in postop setting I have advised them on her need to stop smoking so that fusion may be achieved, they voiced understanding of this. She will follow- up in office with me for first postoperative appointment early next week. Grafts/Implants Used: Arthrex Nitinol Staple; [place] medial Lapidus plate with screws x 6 Complications None Admit VTE Documentation VTE Present on Admission: No VTE Mechan Device Prophylaxis: SCD's VTE Pharm Prophylaxis ordered?: Yes
[2023-10-15] MEDS: Ketorolac 30 MG/ML Syringe IV (14:23)
[2023-10-15 14:49] LABS: Bedside Glucose 221 mg/dL (74-106)
== END 2023-10-15 15:48 | disposition home or self-care (01) ==
LOC: SDC 08:21 → AC 09:58
PROVIDERS: PCP Family Medicine; Referring Provider Student in an Organized Health Care Education/Training Program; Visit Provider Student in an Organized Health Care Education/Training Program
PROC: (CPT 28292; principal; 2023-10-15 09:45)
DX: M21.611 Bunion of right foot (principal); J44.9 Chronic obstructive pulmonary disease, unspecified; E11.22 Type 2 diabetes mellitus with diabetic chronic kidney disease; N18.30 Chronic kidney disease, stage 3 unspecified; M89.8X7 Other specified disorders of bone, ankle and foot; M20.11 Hallux valgus (acquired), right foot; I12.9 Hypertensive chronic kidney disease with stage 1 through stage 4 chronic kidney disease, or unspecified chronic kidney disease; F17.210 Nicotine dependence, cigarettes, uncomplicated; Z79.899 Other long term (current) drug therapy; Z79.84 Long term (current) use of oral hypoglycemic drugs
CPT/HCPCS: 28297; 28122; 28270; 01480; 71046; 73630; 76000; 82962; 93005; C1713; J7120; J2405

== ENCOUNTER → 2023-12-31 | Outpatient (CLI) | payer MEDICAID, SELFPAY ==
--- NOTE | 2023-12-31 13:51 | CT_ITS ---
CT RIGHT LOWER EXTREMITY WITH 3-D IMAGING CLINICAL INDICATION: HALLUX VALGUS (ACQUIRED) RIGHT FOOT TECHNIQUE: Axial CT images of the RIGHT lower extremity was performed without IV contrast material. Coronal and sagittal reformats were provided. RADIATION DOSAGE (If Supplied By Facility): CTDIvol = ( 15.35 ) mGy, DLP = ( 380.63 ) mGycm COMPARISON: Prior study dated: Comparison is made with prior study September 15, 2023. FINDINGS: Bones: The patient is status post fusion of the first tarsal metatarsal joint utilizing screws and sideplate fixation device. There is evidence of healing. The patient is status post osteotomy of the hallux valgus repair involving the distal first metatarsal. A metallic staple is seen in the proximal phalanx of the first digit. Soft Tissues: Persistent soft tissue swelling. The superficial soft tissues are unremarkable without evidence of edema, hematoma, or foreign body. CT/Extremity Lower without Contra IMPRESSION: Status post fusion of the first tarsometatarsal joint as described. There is evidence of healing. Status post osteotomy of the hallux valgus repair involving the distal first metatarsal. Electronically Signed: Jb Tuttle MD at 15:26 EST ,
--- OUTSIDE RECORDS SUMMARY | 2023-12-31 14:35 | XMS RPT_ITS | CCD ---
Author Name Unknown Address [address] [place] [address] Organization [facility] Care Team Providers Care Lumber Buyer Name Role Phone MIKE ALVARADO Unavailable Unavailable PROVIDER, UNKNOWN Unavailable Unavailable Leigh Avery Unavailable Unavailable LEIGH AVERY DO Primary Care Physician Allergies Allergy Classification Reported Allergen(s) Allergy Type Date of Onset Reaction(s) Facility (1 source) Acetaminophen / oxyCODONE; Translations: [acetaminophen-oxy codone] Drug Allergy Bizarre dreams (finding) [facility] Work Phone: (1 source) Angiotensin Converting Enzyme (Diogo) Inhibitors; Translations: [angiotensin converting enzyme inhibitors] Drug allergy [facility] Work Phone: (1 source) Contrast media; Translations: [iodinated radiocontrast agents] Drug allergy Itching [facility] Work Phone: (1 source) Erythromycin; Translations: [erythromycin] Drug Allergy unknown [facility] Work Phone: (1 source) Fenofibrate; Translations: [fenofibric acid] Drug Allergy [facility] Work Phone: (1 source) Omeprazole; Translations: [omeprazole] Drug Allergy unknown [facility] Work Phone: (1 source) Proton Pump Inhibitors; Translations: [proton pump inhibitors] Drug allergy [facility] Work Phone: (1 source) raNITIdine; Translations: [ranitidine] Drug Allergy unknown [facility] Work Phone: Medications Current Medications Medication Drug Class(es) Dates Sig (Normalized) Sig (Original) acyclovir 400 mg oral tablet (1 source) Herpesvirus Nucleoside Analog DNA Polymerase Inhibitor, Herpes Simplex Virus Nucleoside Analog DNA Polymerase Inhibitor, Herpes Zoster Virus Nucleoside Analog DNA Polymerase Inhibitor Start: 05-08-2019 acyclovir 400 mg oral tablet Dose : 400 mg = 1 tab(s), Oral, TID, # 14 tab(s), 0 Refill(s) Start Date: 05/08/19 Status: Ordered albuterol MDI (90 mcg/inh) CFC free inhalation aerosol (1 source) Start: 02-22-2020 take 1-2 puff(s) by mouth every six hours as needed for wheezing albuterol MDI (90 mcg/inh) CFC free inhalation aerosol INHALE 1 TO 2 PUFFS BY MOUTH EVERY 6 HOURS NEEDED FOR SHORTNESS OF BREATH OR WHEEZING Start Date: 02/22/20 Status: Ordered atenolol 50 mg oral tablet (1 source) beta-Adrenergic Sahra Start: 05-08-2019 atenolol 50 mg oral tablet Dose : 50 mg = 1 tab(s), Oral, BID, 0 Refill(s) Start Date: 05/08/19 Status: Ordered BuPROPion (Eqv-Wellbutrin SR) 150 mg/12 hours oral tablet, extended release (1 source) Start: 03-13-2022 BuPROPion (Eqv-Wellbutrin SR) 150 mg/12 hours oral tablet, extended release Dose : 150 mg = 1 tab(s), Oral, BID, 0 Refill(s) Start Date: 03/13/22 Status: Ordered cetirizine hydrochloride 10 mg oral tablet (1 source) Histamine-1 Receptor Antagonist Start: 05-08-2019 take 1 dose by mouth once daily cetirizine Dose : 10 mg =, Oral, qDay, 0 Refill(s) Start Date: 05/08/19 Status: Ordered ertugliflozin 15 mg oral tablet (1 source) Start: 05-14-2020 take 1 tablet by mouth in the morning Steglatro 15 mg oral tablet See Instructions, TAKE 1 TABLET BY MOUTH IN THE MORNING, # 30 tab(s), 2 Refill(s), Pharmacy: [id number], 170.2, cm, 02/22/20 10:03:00 EDT, Height, kg, 02/22/20 10:03:00 EDT, Dosing Weight Start Date: 05/14/20 Status: Ordered FREESTYLE ИРИНА SENSOR 14D KIT (1 source) Start: 02-22-2020 FREESTYLE ИРИНА SENSOR 14D KIT USE DIRECTED Start Date: 02/22/20 Status: Ordered glimepiride 4 mg oral tablet (1 source) Sulfonylurea Start: 03-13-2022 glimepiride 4 mg oral tablet Dose : 4 mg = 1 tab(s), Oral, qDayM, 0 Refill(s) Start Date: 03/13/22 Status: Ordered metFORMIN hydrochloride 1000 mg oral tablet (1 source) Biguanide Start: 04-09-2020 metFORMIN 1000 mg oral tablet Dose : 1,000 mg = 1 tab(s), Oral, BID, # 60 tab(s), 2 Refill(s), Pharmacy: [id number], 170.2, cm, 02/22/20 10:03:00 EDT, Height, kg, 02/22/20 10:03:00 EDT, Dosing Weight Start Date: 04/09/20 Status: Ordered 24 hr nicotine 0.875 mg/hr transdermal system (1 source) Cholinergic Nicotinic Agonist Start: 03-13-2022 apply 1 dose transdermal route once daily nicotine 21mg / 24hrs transdermal patch Dose = 1 patch(es), Transdermal, qDay, # 14 patch(es), 0 Refill(s) Start Date: 03/13/22 Status: Ordered [place]-3 1000 mg oral capsule (1 source) Start: 03-13-2022 [place]-3 1000 mg oral capsule Dose : 1,000 mg = 1 cap(s), Oral, qDay, 0 Refill(s) Start Date: 03/13/22 Status: Ordered rosuvastatin calcium 20 mg oral tablet (1 source) HMG-CoA Reductase Inhibitor Start: 03-13-2022 rosuvastatin 20 mg oral tablet Dose : 20 mg = 1 tab(s), Oral, Daily, 0 Refill(s) Start Date: 03/13/22 Status: Ordered traMADol hydrochloride 50 mg oral tablet (1 source) Opioid Agonist Start: 02-22-2020 take 1 tablet by mouth every eight hours as needed for pain traMADol 50 mg oral tablet TAKE 1 TABLET BY MOUTH EVERY 8 HOURS NEEDED FOR PAIN. STOP ALL OTHER NARCOTICS AND CONFLICTING MEDICATIONS Start Date: 02/22/20 Status: Ordered Vitamin B12 50 mcg oral tablet (1 source) Start: 03-13-2022 Vitamin B12 50 mcg oral tablet Dose : 50 mcg = 1 tab(s), Oral, Daily, 0 Refill(s) Start Date: 03/13/22 Status: Ordered Vitamin C 1000 mg oral tablet (1 source) Start: 03-13-2022 Vitamin C 1000 mg oral tablet Dose : 1,000 mg = 1 tab(s), Oral, qDay, # 30 tab(s), 0 Refill(s) Start Date: 03/13/22 Status: Ordered Vitamin D3 (1 source) Start: 03-13-2022 Vitamin D3 Dose : 2,000 unit(s) = 1 tab(s), Oral, Daily, 0 Refill(s) Start Date: 03/13/22 Status: Ordered Completed/Discontinued Medications Medication Drug Class(es) Dates Sig (Normalized) Sig (Original) fluconazole 150 mg oral tablet (1 source) Azole Antifungal Start: 03-13-2022 fluconazole 150 mg oral tablet Dose : 150 mg = 1 tab(s), Oral, Daily, PRN Rash, 0 Refill(s), 69 Start Date: 03/13/22 Status: Ordered Problems Active Problems Problem Classification Problem Date Documented Da te Episodic/Chronic Diabetes mellitus without complication (1 source) Type 2 diabetes mellitus 02-21-2020 Chronic Disorders of lipid metabolism (1 source) Dyslipidemia 02-21-2020 Chronic Nutritional deficiencies (1 source) Vitamin D deficiency 02-21-2020 Chronic Past or Other Problems Problem Classification Problem Date Documented Da te Episodic/Chronic Other non-traumatic joint disorders (2 sources) Pain in right elbow; Translations: [Pain in right elbow] Onset: 01-07-2018 Episodic Results Test Name Value Interpretation Reference Range Facil ity Vital Signs Date Time Vital Sign Value Performing Clinician Jason rbidges 03-13-2022 09:28-0400 Body height 170.2 cm JULIA ZAMBRANO DPM [facility] 03-13-2022 09:28-0400 Body weight 63.6 kg JULIA ZAMBRANO DPM [facility] 03-13-2022 09:28-0400 Body weight 21.96 kg/m2 JULIA ZAMBRANO DPM [facility] 03-13-2022 09:28-0400 diastolic 72 mm[Hg] JULIA ZAMBRANO DPM [facility] 03-13-2022 09:28-0400 Heart rate 67 /min JULIA ZAMBRANO DPM [facility] 03-13-2022 09:28-0400 Respiratory rate 20 /min JULIA ZAMBRANO DPM [facility] 03-13-2022 09:28-0400 systolic 150 mm[Hg] JULIA ZAMBRANO DPM [facility] Encounters Encounter Date Encounter Type Care Provider Facility Start: 03-13-2022 End: 03-13-2022 Admission to establishment JULIA ZAMBRANO DPM [facility] Start: 01-07-2018 Ambulatory MIKE ALVARADO [facility] Procedures Date Procedure Procedure Detail Performing Clinician section JULIA BRAUN DPM Immunizations Immunization Date Immunization Notes Care Provider Fa cility 12-27-2019 tetanus toxoid, redu micheal diphtheria toxoid, and acellular pertussis vaccine, adsorbed JULIA ZAMBRANO DPM [facility] Payers Date Payer Category Payer Policy ID Unknown Social History Date Type Detail Facility Start: 03-13-2022 Tobacco smoking status Ex-smoker (fi nding) [facility] Sex Assigned At Female [facility] Functional Status Date Assessment Result Facility 03-13-2022 Functional Status [facility] Evaluation + Plan note Note Date & Type Note Facility Evaluation + Plan note Future Appointments [facility] Hospital course Narrative Note Date & Type Note Facility Hospital course Narrative No data available for this section [facility] Hospital Discharge instructions Note Date & Type Note Facility Hospital Discharge instructions No data available for this section [facility] Progress note Note Date & Type Note Facility Progress note No data available for this section [facility] Summary Purpose Family History No Family History Records FoundNo Family History Records Found Advance Directives No Advanced Directives Records FoundNo Advanced Directives Records Found Additional Source Comments INFORMATION SOURCE (unrecogn ized section and content) DATE CREATED AUTHOR AUTHOR'S PAUL ATION 02/16/2020 [facility] ([place]) Care Team (unrecognized sect ion and content) Personnel Name: LEIGH AVERY DO Address: [facility] [address] [place] [address] FOR RECORDS PERTAINING TO PATIENTS WHO ARE OR HAVE BEEN ENROLLED IN A CHEMICAL DEPENDENCY/SUBSTANCEABUSE PROGRAM, SOME INFORMATION MAY BE OMITTED. This clinical summary was aggregated from multiple sources. Caution should be exercised in using it in the provision of clinical care. This summary normalizes information from multiple sources, and as a consequence, information in this document may materially change the coding, format and clinical context of patient data. In addition, data may be omitted in some cases. CLINICAL DECISIONS SHOULD BE BASED ON THE PRIMARY CLINICAL RECORDS. [facility]. provides no warranty or guarantee of the accuracy or completeness of information in this document.
== END | disposition home or self-care (01) ==
PROVIDERS: PCP Family Medicine
DX: M20.11 Hallux valgus (acquired), right foot (principal); M96.0 Pseudarthrosis after fusion or arthrodesis
CPT/HCPCS: 73700

== ENCOUNTER 2024-04-10 10:00 | Outpatient (RCR) | payer MEDICAID, SELFPAY ==
--- NOTE | 2024-03-13 14:44 | HP.PTEVAL_ITS ---
Patient's Visit Information Visit Information Visit Information: YOCASTA CONTRERAS is a 53 year old F referred to Physical Therapy by Dr. Rafi Mueller DPM with a diagnosis of Non union bunionectomy R post op 10/15 revision. Date of Evaluation: 03/13/24 Physical Therapist: Juancarlos Zhao DPT, OCS, CSCS Visit Plan Frequency: 3x /Week Duration: 6 Weeks Plan: 3x/week for 6 weeks for 1. desensitization massage big toe, rollout calf, PROM big toe flexion and mobs 2. strengthening foot and ankle and proprioceptive ex 3. Gait training 3nsuring R big toe in contact with ground 4. ice as needed IE: Instruct in weaning boot vs quitting cold turkey, also in HEP of desensitization massage and PROM R big toe, gastroc soleus stretch, 30 4x. towel toe curls 40x and seated heel raises 3x10 all 2x/day with HO Subjective Subjective: Had 2 foot surgeries bunionectomy and first one did not heal in March 2022. latest on was 10/19/23. This one healed. Toes were crossing and had pain. Has pain R big toe and back to hindfoot but better than before surgery. Was in a boot until 02/21/24, Was NWB for 3-4 months with walker. Was comfortable NWB. Now in regular shoe and pain is up to 3/10 with walking longer distances. Hurts right away at toe bend. Compfrtable at rest. Sleep is OK. Not employed, not working due to this foot, was on feet all the time. 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 HobbiesL: harrison, marlee dots and is doing them. Went to races this weekend and was a little sore. Basic ADLS are going fine, has steps and they are not a big problem. HEP: none, Pain R big toe area: Pain Intensity (Out of 10): 0 Pain Intensity Range: 0 and 4 Objective Objective: Walks I without AD but R big toe not on gorund and more lateral than medial forefoot WB. Transfers chair and bed I. good balance in stance and walking. R medial big toe is numby feeling to light touch vs L. AROM big toe limited in flexion to shy of neutral, extension is 25 degrees PROM 35 extension and 5 flexion with discomfort top of foot at end range. AROM ankle to 0 D F on R with tightness in gastroc and soleus R. AROM hips and knees WFL. strength big toe flexion 2, ext 3+, ankle strength 4/5 R and 4+ L. knee and hip strength 4/5. reflexes 2/3 patella adn achilles Sensation WNL to gross light touch except medial R big toe which is hypersensitive to touch and feel numby. Balance/Special Test Scores Lower Extremity Functional Score: 44 Goals Goal 1:: stand with R big toe on floor comfortably SLS 10 sec R LE Goal Time Frame: 4-6 Weeks Goal 2:: Pt walk with big toe on ground comfortably with no pain Goal Time Frame: 4-6 Weeks Goal 3:: Pt feel 90% back to normal activity without antalgia or pain Goal Time Frame: 4-6 Weeks Goal 4:: I appropriate HEP to limit future problems. Goal Time Frame: 4-6 Weeks Goal 5:: LEFS 55 Goal Time Frame: 4-6 Weeks Rehabilitation Potential Physical Therapy Diagnosis: limtied ROM and weakness limiting comfortable funciton Rehabilitation Potential: Good Anticipated Interventions Patient/Client Instruction: Educate patient on: Condition and Plan of Care For the Purpose of:: To decrease pain, To increase ROM, To improve nutrient delivery to tissue, To improve muscle performance and motor function, To increase tolerance to activity/condition/position, To improve gait and locomotor functions and To increase flexibility/ROM Therapeutic Exercise to Include: Strength training, Balance training, Flexibilty training, Gait and locomotor training, Passive ROM and Active ROM For the Purpose of:: To decrease pain, To decrease swelling/inflammation, To increase ROM, To improve nutrient delivery to tissue, To improve muscle performance and motor function, To increase tolerance to activity/condition/position, To improve ability of physical actions for home/community/work/leisure, To improve gait and locomotor functions, To improve health of tissue, To improve safety with gait and To improve safety Manual Therapy Techniques to Include: Massage, Scar massage, Mobilization, Pa ssive ROM and Soft tissue mobilization For the Purpose of:: To decrease pain, To increase ROM, To improve muscle performance and motor function, To increase tolerance to activi ty/condition/position, To improve ability of physical actions for home/community/work/leisure and To improve gait and locomotor functions Cryotherapy (ice pack, ice massage): Yes For the Purpose of:: To decrease pain and To decrease swelling/inflammation Text: Thank you for the opportunity to evaluate your patient. For Medicare and Medicare HMO plans, please review the plan of care and approve it. It will need to be FAXED BACK to us at [phone] for Medicare purposes. For Medicare only, by signing this I certify the plan of care. Please let me know if there are questions or concerns regarding this plan of care. Physician Signature: Date:
--- NOTE | 2024-04-10 10:12 | HP.PTDCSUM ---
Discharge Summary D/C summary: It has been my pleasure to treat YOCASTA CONTRERAS referred by Dr. Rafi Mueller DPM, with the diagnosis of Non union bunionectomy R post op 10/15 revision for a total of 8 visit(s). Discharge Date: 04/10/24 Please see the following information for a summary of their discharge status. Subjective Subjective: Doing well and ready to be done and doctor agreed. Carmen is none lately. Legs are restless. Activities are normal. [employer] outside of RLS. 95% better, just has tight feeling in toes that may not go away. Pain R big toe area: Pain Intensity (Out of 10): 0 Overall Improvement % Improvement: 95 Objective Objective/Function: Good ROm in toes and ankle, gastroc soleus complex still tight R vs L. PROM is good and without pain today in big toe. SLS 10 sec with toe up slightly at times. walking without gait deviations today. Goals Goal 1:: stand with R big toe on floor comfortably SLS 10 sec R LE Goal Progress: Goal Met Goal 2:: Pt walk with big toe on ground comfortably with no pain Goal Progress: Goal Met Goal 3:: Pt feel 90% back to normal activity without antalgia or pain Goal 4:: I appropriate HEP to limit future problems. Goal Progress: Goal Met Goal 5:: LEFS 55 Goal Progress: Goal Met Plan Plan: d/c to HEP and [employer]. D/C Information d/c sentence: If there are questions or concerns regarding this patient's physical therapy, please feel free to call me at [phone]. Thank you for the referral of this patient. Sincerely, Juancarlos Zhao, DPT, OCS, CSCS Balance/Gait/Functional tests Balance/Special Test Scores Lower Extremity Functional Score: 61 Improvement % Improvement: 95
== END 2024-04-10 19:00 | disposition home or self-care (01) ==
LOC: PT 10:00
PROVIDERS: PCP Family Medicine; Referring Provider Student in an Organized Health Care Education/Training Program; Visit Provider Student in an Organized Health Care Education/Training Program
DX: Z98.890 Other specified postprocedural states (principal)
CPT/HCPCS: 97110; 97140; 97161; 97530

== ENCOUNTER → 2024-06-16 | Outpatient (CLI) | payer MEDICAID, SELFPAY ==
[2024-06-16 11:45] LABS: Erythrocyte Sedimentation Rate 7 mm/hr (0-30)
[2024-06-16 11:48] LABS: Absolute Lymphocyte Count 4.41 X10^3/uL (0.83-4.51); Basophil# 0.06 X10^3/uL; Basophil% 0.5 % (0-1); Eosinophil# 0.25 X10^3/uL; Eosinophils% 2.2 % (0-5); Hematocrit 41.8 % (37-47); Hemoglobin 14.1 g/dL (12.0-15.0); Lymphocyte # 4.41 X10^3/ul (0.83-4.51); Lymphocyte % 39.4 % (19-41); Mean Corp Hgb Conc 33.7 g/dL (32-36); Mean Corpuscular Hgb 31.4 pg (27.0-32.0); Mean Corpuscular Volume 93.1 fL (81-99); Mean Platelet Vol. 11.6 fl (6.2-12.0); Monocyte# 0.48 X10^3/uL; Monocyte% 4.3 % (0-10); NRBC Flagged by Analyzer 0 % (0-5); Neutrophil # 5.96 X10^3/uL (2.7-7.7); Neutrophil % 53.3 % (47-70); Platelet Count 280 K/mm3 (150-450); RBC Distribution Width CV 12.7 % (11.6-14.6); RBC Distribution Width SD 43.5 fl (35.1-43.9); Red Blood Count 4.49 M/mm3 (4.2-5.4); White Blood Count 11.2 K/mm3 (4.4-11.0)
[2024-06-16 12:44] LABS: AST(SGOT) 12 U/L (15-37); Alanine Aminotransfer ALT/SGPT 19 U/L (13-56); Albumin, Serum 3.5 g/dL (3.2-5.0); Alkaline Phosphatase 79 U/L (45-117); Anion Gap 5 (5-15); BUN 21 mg/dL (7-18); BUN/Creat Ratio 22.7 RATIO (10-20); CRP < 2.90 mg/L (0.0-3.0); Chloride 108 mmol/L (98-107); Creatinine, Serum 0.93 mg/dL (0.55-1.02); EST Glomerular Filtration Rate 67 mL/min (>60); Est Glom Filt Rate - Afr Amer 81 mL/min (>60); Globulin 3.4 g/dL (2.2-4.2); Glucose 183 mg/dL (74-106); Potassium 3.9 mmol/L (3.5-5.1); Protein, Total 6.9 g/dL (6.4-8.2); Rheumatoid Factor < 10.0 IU/mL (<15); Sodium Level 140 mmol/L (136-145); Thyroid Stim Hormone (TSH) 2.79 uIU/mL (0.358-3.74)
[2024-06-17 13:08] LABS: CCP IgG Antibodies 3 units (0-19); Lyme Scn Total Ab w/Rflx Negative (Negative)
[2024-06-19 10:07] LABS: ANTINUCLEAR ANTIBODIES DIRECT Negative (Negative)
== END | disposition home or self-care (01) ==
LOC: BIMLAB 09:04
PROVIDERS: PCP Family Medicine; Referring Provider Physician Assistant; Visit Provider Physician Assistant
DX: M79.18 Myalgia, other site (principal); I10 Essential (primary) hypertension; M25.50 Pain in unspecified joint
CPT/HCPCS: 86225; 86235 ×5; 36415; 80053; 84443; 85025; 85652; 86038; 86140; 86200; 86431; 86618

== ENCOUNTER → 2024-08-24 | Outpatient (CLI) | payer MEDICAID, SELFPAY ==
--- NOTE | 2024-08-24 12:48 | CT_ITS ---
STUDY: LOW DOSE CT LUNG CANCER SCREENING REASON FOR EXAM: Female, 54 years old. chronic smoker over age 49 RADIATION DOSAGE (If Supplied By Facility): CTDIvol = ( 3.02 ) mGy, DLP = ( 99.68 ) mGycm TECHNIQUE: No contrast was administered. Low dose technique was utilized (average mAS-38 and kVp 120). 1.25 mm axial source images with a slice interval of 1.25-mm were reconstructed in lung windows. 2.5 mm axial source images with a slice interval of 2.5-mm were reconstructed in lung windows. 5.0 mm axial source images with a slice interval of 5.0-mm were reconstructed in soft tissue windows. COMPARISON: None. Emphysema: Mild emphysema. 4 mm noncalcified nodule in the anterior superior segment left lower lobe lungs on image 66 and follow-up CT is recommended in 12 months document stability. Endobronchial lesion: None Aorta: Some calcified plaque in the aortic arch but no thoracic aortic aneurysm. CORONARY ARTERIES: Coronary artery calcification is seen. Heart: No cardiomegaly. Pulmonary artery: Normal Mediastinal nodes: Normal Other chest and abdominal findings: None CT/Low Dose CT Lung Screening IMPRESSION: Lung-RADS category 2 - Continue annual screening with LDCT in 12 months. IMPORTANT NOTES FOR USE: ACR Lung-RADS Version 1.1 Assessment Categories Release Date: 2018 Category: Coded 0-4 bases on nodule(s) with highest degree of suspicion. Negative screen is defined as categories 1 and 2; a positive screen is defined as categories 3 and 4. Category 3 and 4A nodules that are unchanged on interval CT should be coded as category 2, and individuals returned to screening in 12 months. Category 4X: Category 3 or 4 nodules with additional imaging findings that increase the suspicion of lung cancer, such as spiculation, GGN that doubles in size in 1 year, enlarged lymph notes, etc. Category Modifiers: S (significant finding unrelated to lung cancer) Electronically Signed: Arnel Patterson MD at 12:26 EDT ,
== END | disposition home or self-care (01) ==
LOC: CT 12:47
PROVIDERS: PCP Family Medicine; Referring Provider Physician Assistant; Visit Provider Physician Assistant
DX: Z12.2 Encounter for screening for malignant neoplasm of respiratory organs (principal); Z87.891 Personal history of nicotine dependence
CPT/HCPCS: 71271

== ENCOUNTER → 2025-04-19 | Outpatient (CLI) | payer MEDICAID, SELFPAY ==
--- NOTE | 2025-04-19 12:30 | BD_ITS ---
PROCEDURE: DEXA BONE DENSITY STUDY 04/19/2025 REASON FOR EXAM: OSTOPOROSIS F, age 54 y/o . Postmenopausal. TECHNIQUE: DXA scan of sites with data reported below. REFERENCE LINKS: ISCD Adult Positions COMPARISON: None FINDINGS: BMD and T-SCORES Lumbar spine: 1.022 g/cm2, T-score -0 point Levels: L1 through L4 Left femoral neck: 0.752 g/cm2, T-score -0.9 Femoral neck comparison data not recommended for monitoring change. Left total hip: 0.859 g/cm2, T-score -0.7 Right femoral neck: 0.800 g/cm2, T-score -0.4 Femoral neck comparison data not recommended for monitoring change. Right total hip: 0.870 g/cm2, T-score -0.6 The World Health Organization has defined the following categories based on bone density: Normal bone density: T-score equal to or greater than -1.0 Osteopenia: T-score between -1.0 and -2.5 Osteoporosis: T-score equal to or less than -2.5 The patient does not meet the pharmacological treatment recommendations for prevention of osteoporosis. BD/Dexa Bone Density Study IMPRESSION: NORMAL T-SCORES. Recommend follow-up as clinically warranted. Reading Location: [facility]
== END | disposition home or self-care (01) ==
LOC: OPBD 12:22
PROVIDERS: PCP Family Medicine; Referring Provider Family Medicine; Visit Provider Family Medicine
DX: M81.0 Age-related osteoporosis without current pathological fracture (principal)
CPT/HCPCS: 77080

== ENCOUNTER → 2025-04-26 | Outpatient (CLI) | payer MEDICAID, SELFPAY ==
[2025-04-26 13:20] LABS: Microalbumin,Random Urine < 12.0 mg/L (NO RANGE EST.); Microalbumin:Creatinine Ratio UNABLE TO CALCULATE mg/g CRE
[2025-04-26 13:45] LABS: ALB/GLOB Ratio 1.7 RATIO (0.9-2.4); AST(SGOT) 17 U/L (<=31); Alanine Aminotransfer ALT/SGPT 13 U/L (<=34); Albumin, Serum 4.1 g/dL (3.5-5.0); Alkaline Phosphatase 84 U/L (35-104); Anion Gap 10 (5-15); BUN 21 mg/dL (4-19); BUN/Creat Ratio 21.1 RATIO (10-20); Calcium,Total 9.7 mg/dL (7.6-11.0); Carbon Dioxide 24.9 mmol/L (21.0-32.0); Chloride 105 mmol/L (98-108); Cholesterol 218 mg/dL (<=200); Creatinine, Serum 0.98 mg/dL (0.70-1.20); EST Glomerular Filtration Rate 68 (>60); Globulin 2.5 g/dL (2.2-4.2); Glucose 111 mg/dL (70-99); High Density Lipoprotein 37 mg/dL; Low Density Lipoprotein Calc. 149 mg/dL; Potassium 5.1 mmol/L (3.3-5.1); Protein, Total 6.6 g/dL (5.9-8.4); Sodium Level 141 mmol/L (133-145); Total Bilirubin 0.26 mg/dL (0.00-1.30); Triglycerides 162 mg/dL; Very Low Density Lipoprotein 32 mg/dL (5-40); Vitamin D,25 Hydroxy 68.7 ng/mL (30-100); cholesterol:hdl ratio screen 5.94
== END | disposition home or self-care (01) ==
LOC: BIMLAB 11:18
PROVIDERS: PCP Family Medicine; Referring Provider Nurse Practitioner Family; Visit Provider Nurse Practitioner Family
DX: E11.649 Type 2 diabetes mellitus with hypoglycemia without coma (principal)
CPT/HCPCS: 36415; 80053; 80061; 82043; 82306; 82570; 84443